=== PATIENT | male | born 1975 ===

== ENCOUNTER 2017-10-05 13:48 | Inpatient (IN) | payer SELFPAY ==
[~2017-10-05] VITALS: Ht 188 cm; Wt 118.4 kg
--- NOTE | 2017-10-05 14:03 | ER Report ---
History and Physical Time Seen By MD: 14:02 Hx. of Stated Complaint: pt reports abd pain and blood in stool for ~2 years. acute pain worse past 2 days in lower/center abd HPI/ROS CHIEF COMPLAINT: Abdominal pain HISTORY OF PRESENT ILLNESS: This is a 41-year-old male who presents to the emergency department for abdominal pain. Patient states that over the last here 2 year have he's had intermittent bright and dark red blood in his stools. Patient states that he has not been formally evaluated for this. Patient also states that over the last 2 days he's had significant lower abdominal pain and has been crawled up in a ball at home dealing with the pain. Patient states that ultimately he decided come in for further evaluation patient has not had a bowel movement in about 1-2 days. Patient denies vomiting he does have nausea. Patient denies chest pain or shortness of breath. Patient has had intermittent chills. No chest pain or shortness of breath. No rashes or headaches. No dysuria. REVIEW OF SYSTEMS: Constitutional: As above. Eyes: No discharge. ENT: No sore throat. Cardiovascular: No chest pain, no palpitations. Respiratory: No cough, no shortness of breath. Gastrointestinal: As above. Genitourinary: No hematuria. Musculoskeletal: No back pain. Skin: No rashes. Neurological: No headache. Allergies: Coded Allergies: No Known Drug Allergies (Unverified , 10/05/17) Home Meds No Active Prescriptions or Reported Meds Past Medical/Surgical History Patient has a past medical and surgical history of appendectomy. Reviewed Nurses Notes: Yes Constitutional Vital Sign - Last 24 Hours 10/05/17 10/05/17 10/05/17 10/05/17 13:56 13:57 14:00 14:03 Temp 98.5 Pulse 103 94 Resp 16 B/P (MAP) 118/83 109/78 (88) 129/91 (104) Pulse Ox 90 91 O2 Delivery Room Air 10/05/17 10/05/17 10/05/17 10/05/17 14:18 14:30 14:33 14:35 Pulse 91 91 B/P (MAP) 117/75 (89) Pulse Ox 90 91 O2 Flow Rate 2.0 10/05/17 10/05/17 10/05/17 10/05/17 14:38 14:53 15:00 15:20 Pulse 97 87 77 B/P (MAP) 116/64 (81) Pulse Ox 91 91 95 10/05/17 10/05/17 10/05/17 10/05/17 15:25 15:30 15:35 15:45 Pulse 81 77 71 B/P (MAP) 120/59 (79) Pulse Ox 93 94 10/05/17 10/05/17 10/05/17 10/05/17 15:55 16:00 16:05 16:20 Pulse 76 79 77 B/P (MAP) 106/76 (86) 101/67 (78) Pulse Ox 84 95 95 10/05/17 10/05/17 10/05/17 16:30 16:35 16:40 Pulse 77 82 B/P (MAP) 105/71 (82) Pulse Ox 96 94 Intake and Output 10/05/17 10/05/17 10/06/17 15:00 23:00 07:00 Intake Total 1000 ml Balance 1000 ml Physical Exam General Appearance: The patient is alert, has no immediate need for airway protection and no signs of toxicity. Eyes: Pupils equal and round no pallor or injection. ENT, Mouth: Mucous membranes are moist. Respiratory: There are no retractions, lungs are clear to auscultation. Cardiovascular: Regular rate and rhythm, no murmurs, clicks or rubs. Gastrointestinal: Abdomen is soft and tenderness to the lower abdomen bilaterally, hypoactive bowel sounds with distant tinkles in the lower abdomen. Umbilical hernia noted. No fluid wave. Negative rectal exam, no gross blood noted no hemorrhoids. Neurological: Alert and oriented 4. Moving all Ixodes. Following all commands. No focal proptosis. Skin: Warm and dry, no rashes. Musculoskeletal: Neck is supple non tender. Extremities are nontender, nonswollen and have full range of motion. DIFFERENTIAL DIAGNOSIS: After history and physical exam differential diagnosis was considered for abdominal pain including but not limited to appendicitis, cholecystitis, gastritis, diverticulitis, reticulosis, bowel obstruction and urinary tract infection. Medical Decision Making Data Points Result Diagram: 10/05/17 1359 10/05/17 1359 Laboratory Hematology Test 10/05/17 13:59 10/05/17 14:50 10/05/17 15:51 Red Blood Count 5.42 M/uL (4.00-5.60) Mean Corpuscular Volume 88.2 fL (80.0-96.0) Mean Corpuscular Hemoglobin 29.9 pg (26.0-33.0) Mean Corpuscular Hemoglobin Concent 33.8 g/dL (32.0-36.0) Red Cell Distribution Width 13.4 % (11.5-14.5) Mean Platelet Volume 10.0 fL (7.2-11.1) Neutrophils (%) (Auto) 88.1 % (39.4-72.5) Lymphocytes (%) (Auto) 6.6 % (17.6-49.6) Monocytes (%) (Auto) 4.6 % (4.1-12.4) Eosinophils (%) (Auto) 0.5 % (0.4-6.7) Basophils (%) (Auto) 0.2 % (0.3-1.4) Nucleated RBC Relative Count (auto) 0.1 /100WBC Neutrophils # (Auto) 14.2 K/uL (2.0-7.4) Lymphocytes # (Auto) 1.1 K/uL (1.3-3.6) Monocytes # (Auto) 0.7 K/uL (0.3-1.0) Eosinophils # (Auto) 0.1 K/uL (0.0-0.5) Basophils # (Auto) 0.0 K/uL (0.0-0.1) Nucleated RBC Absolute Count (auto) 0.01 K/uL Sodium Level 139 mmol/L (137-145) Potassium Level 3.2 mmol/L (3.5-5.0) Chloride Level 100 mmol/L (98-107) Carbon Dioxide Level 23 mmol/L (22-30) Blood Urea Nitrogen 17 mg/dl (9-21) Creatinine 1.20 mg/dl (0.66-1.25) Glomerular Filtration Rate Calc > 60.0 Random Glucose 123 mg/dl (75-110) Calcium Level 9.5 mg/dl (8.4-10.2) Total Bilirubin 1.9 mg/dl (0.2-1.3) Aspartate Amino Transf (AST/SGOT) 35 U/L (0-35) Alanine Aminotransferase (ALT/SGPT) 72 U/L (0-56) Alkaline Phosphatase 110 U/L (0-126) Total Protein 7.6 gm/dl (6.3-8.2) Albumin 4.0 g/dl (3.5-5.0) Amylase Level 44 U/L (0-110) Lipase 33 U/L (23-300) Stool Occult Blood (IFOB) Negative (NEGATIVE) Urine Color Debbie Urine Clarity Clear Urine pH 5.0 pH (4.8-9.5) Urine Specific [place] 1.010 Urine Protein 30 mg/dL (NEGATIVE) Urine Glucose (UA) Negative mg/dL (NEGATIVE) Urine Ketones 20 mg/dL (NEGATIVE) Urine Blood Negative (NEGATIVE) Urine Nitrite Negative (NEGATIVE) Urine Bilirubin Negative (NEGATIVE) Urine Urobilinogen 4.0 mg/dL (0.2-1.9) Urine Leukocyte Esterase Negative (NEGATIVE) Urine RBC None /HPF (0-2/HPF) Urine WBC 4 /HPF (0-5/HPF) Urine Squamous Epithelial Cells None /LPF (</=FEW) Urine Bacteria Few /HPF (NONE-FEW) Urine Hyaline Casts Few /LPF (NONE-FEW) Urine Mucus Few /HPF (NONE-FEW) Chemistry Test 10/05/17 13:59 10/05/17 14:50 10/05/17 15:51 White Blood Count 16.1 k/uL (4.5-11.0) Red Blood Count 5.42 M/uL (4.00-5.60) Hemoglobin 16.2 g/dL (14.0-18.0) Hematocrit 47.9 % (42.0-52.0) Mean Corpuscular Volume 88.2 fL (80.0-96.0) Mean Corpuscular Hemoglobin 29.9 pg (26.0-33.0) Mean Corpuscular Hemoglobin Concent 33.8 g/dL (32.0-36.0) Red Cell Distribution Width 13.4 % (11.5-14.5) Platelet Count 225 K/uL (150-450) Mean Platelet Volume 10.0 fL (7.2-11.1) Neutrophils (%) (Auto) 88.1 % (39.4-72.5) Lymphocytes (%) (Auto) 6.6 % (17.6-49.6) Monocytes (%) (Auto) 4.6 % (4.1-12.4) Eosinophils (%) (Auto) 0.5 % (0.4-6.7) Basophils (%) (Auto) 0.2 % (0.3-1.4) Nucleated RBC Relative Count (auto) 0.1 /100WBC Neutrophils # (Auto) 14.2 K/uL (2.0-7.4) Lymphocytes # (Auto) 1.1 K/uL (1.3-3.6) Monocytes # (Auto) 0.7 K/uL (0.3-1.0) Eosinophils # (Auto) 0.1 K/uL (0.0-0.5) Basophils # (Auto) 0.0 K/uL (0.0-0.1) Nucleated RBC Absolute Count (auto) 0.01 K/uL Glomerular Filtration Rate Calc > 60.0 Calcium Level 9.5 mg/dl (8.4-10.2) Total Bilirubin 1.9 mg/dl (0.2-1.3) Aspartate Amino Transf (AST/SGOT) 35 U/L (0-35) Alanine Aminotransferase (ALT/SGPT) 72 U/L (0-56) Alkaline Phosphatase 110 U/L (0-126) Total Protein 7.6 gm/dl (6.3-8.2) Albumin 4.0 g/dl (3.5-5.0) Amylase Level 44 U/L (0-110) Lipase 33 U/L (23-300) Stool Occult Blood (IFOB) Negative (NEGATIVE) Urine Color Debbie Urine Clarity Clear Urine pH 5.0 pH (4.8-9.5) Urine Specific [place] 1.010 Urine Protein 30 mg/dL (NEGATIVE) Urine Glucose (UA) Negative mg/dL (NEGATIVE) Urine Ketones 20 mg/dL (NEGATIVE) Urine Blood Negative (NEGATIVE) Urine Nitrite Negative (NEGATIVE) Urine Bilirubin Negative (NEGATIVE) Urine Urobilinogen 4.0 mg/dL (0.2-1.9) Urine Leukocyte Esterase Negative (NEGATIVE) Urine RBC None /HPF (0-2/HPF) Urine WBC 4 /HPF (0-5/HPF) Urine Squamous Epithelial Cells None /LPF (</=FEW) Urine Bacteria Few /HPF (NONE-FEW) Urine Hyaline Casts Few /LPF (NONE-FEW) Urine Mucus Few /HPF (NONE-FEW) Urinalysis Test 10/05/17 15:51 Urine Color Debbie Urine Clarity Clear Urine pH 5.0 pH (4.8-9.5) Urine Specific [place] 1.010 Urine Protein 30 mg/dL (NEGATIVE) Urine Glucose (UA) Negative mg/dL (NEGATIVE) Urine Ketones 20 mg/dL (NEGATIVE) Urine Blood Negative (NEGATIVE) Urine Nitrite Negative (NEGATIVE) Urine Bilirubin Negative (NEGATIVE) Urine Urobilinogen 4.0 mg/dL (0.2-1.9) Urine Leukocyte Esterase Negative (NEGATIVE) Urine RBC None /HPF (0-2/HPF) Urine WBC 4 /HPF (0-5/HPF) Urine Squamous Epithelial Cells None /LPF (</=FEW) Urine Bacteria Few /HPF (NONE-FEW) Urine Hyaline Casts Few /LPF (NONE-FEW) Urine Mucus Few /HPF (NONE-FEW) [place]/Imaging [place] [facility] [place] Dillon Kramer : 1975 Visit/Account:[id number] Date of Sevice: 10/05/2017 ABDOMEN/PELVIS WITH CONTRAST HISTORY: Abdomen pain x3 days TECHNIQUE: Following administration of IV contrast contiguous axial images acquired through the abdomen/pelvis. Coronal and sagittal reformatting also performed. Dose Lowering Technique One of the following dose optimization techniques was utilized in the performance of this exam: Automated exposure control; adjustment of the mA and/ or kV according to the patient's size; or use of an iterative reconstruction technique. Specific details can be referenced in the facility's radiology CT exam operational policy. CONTRAST: 75 mL Isovue-370 COMPARISON: None. FINDINGS: Visualized lung bases: There is coarse linear stranding in the lung bases consistent with atelectasis and or scarring Hepatobiliary: Negative. Spleen: Negative. Adrenals: Negative. Pancreas: Negative. Kidneys ureters or bladder: Negative. Genitalia: Negative. GI: There is diverticulosis in the sigmoid colon. In the proximal sigmoid colon there is marked wall thickening with a large amount of adjacent fat stranding and linear channel of free air consistent with a perforation. Immediately adjacent is a thickened dilated loop of small bowel. Mildly dilated fluid-filled loops of small bowel are additionally seen throughout the mid and lower abdomen. There is also a moderate amount of free intraperitoneal air seen throughout the abdomen as well. There are postsurgical changes from an appendectomy. There is a fat halo seen around the terminal ileum which has been described with inflammatory bowel disease. Vessels/spaces/nodes: There shotty retroperitoneal lymph nodes . There is a 2.8 x 2.1 cm ovoid collection with air-fluid level seen just to the right of midline in the mid pelvis worrisome for an abscess Bones/soft tissues: There are multiple Schmorl's nodes in the thoracolumbar spine. There is a moderate size umbilical hernia containing fat and free air Additional findings: None pertinent. IMPRESSION: Findings are consistent with acute diverticulitis in the sigmoid colon without free perforation. Is a moderate amount of free air seen throughout the abdomen initially there is a ovoid collection just the right of midline in the mid pelvis with air-fluid level measuring 2.8 x 2.1 cm in diameter concerning for an abscess.. Adjacent to the sigmoid perforation is a dilated thick-walled loop of small bowel. Multiple loops of mildly dilated fluid-filled small bowel also seen throughout the mid abdomen and pelvis. Coarse linear stranding the lung bases consistent with atelectasis versus scarring There is a fat halo seen around the terminal ileum which has been described with inflammatory bowel disease. Clinical correlation needed. Moderate size umbilical hernia containing fat and free air Results were called to COLT SOARES at 10/05/2017 3:33 PM. Report Dictated By: Kasandra Velasco MD at 10/05/2017 3:26 PM Report E-Signed By: Kasandra Velasco MD at 10/05/2017 3:40 PM WSN:[facility] ED Course/Re-evaluation Clinical Indication for ER IV: Hydration, IV Access ED Course The patient was admitted 1. History of physical obtained. Differential diagnoses were considered. IV was started. A CBC, CMP, amylase and lipase were obtained. The wbc's 16.1 with a left shift. Potassium 3.2. Negative urine. Patient was given 50 g IV fentanyl, 4 mg IV Zofran. A liter of normal saline. Patient was given a subsequent dose of 50 g of IV fentanyl. 2nd liter of normal saline at [address] abdomen and pelvis showing free air in the abdomen with a possible ruptured diverticulum. As well as some thickening in the small intestine. I did review these results with the patient and did tell him that I will contact the surgeon on-call and reviewed the case with him for a possible admission. Patient was in agreement with this plan of care. I did contact Dr. Estrella as noted below. Patient will be admitted to the hospital. Patient was given 1 g of IV ertapenem. Patient was in agreement with the admission patient does understand that he will be going to surgery either today or tomorrow. Patient had no other questions or concerns at this time and was admitted to the medical surgical floor. 10/05/2017 4:37:15 pm I did speak with Dr. Estrella regarding the patient's case , he reviewed the CT and has agreed to admit the patient to his services. Patient will be admitted for perforated diverticulum, free air in the abdomen. We'll go ahead and start the patient on antibiotics in the emergency department. Decision to Disposition Date: Oct 05, 2017 Decision to Disposition Time: 16:15 Depart Departure Latest Vital Signs Vital Signs Date Time Temp Pulse Resp B/P (MAP) Pulse Ox O2 Delivery O2 Flow Rate FiO2 10/05/17 16:40 82 94 10/05/17 16:30 105/71 (82) 10/05/17 14:35 2.0 10/05/17 13:56 98.5 16 Room Air Impression: Primary Impression: Perforated diverticulum Additional Impression: Free intraperitoneal air Condition: Improved Disposition: Admitted from ER New Scripts No Active Prescriptions or Reported Meds Problem Qualifiers COLT SOARES CAFETERIA ASSOCIATE-BC Oct 05, 2017 14:03
[2017-10-05] MEDS ORDERED: NS(*) 0.9% 1000 ML BAG 1,000 ML IV ONE ×2 (14:19→16:25)
[2017-10-05] MEDS ORDERED: fentaNYL CITR 100 MCG/2 ML AMP IVP ONE ×2 (14:20→16:10)
[2017-10-05] MEDS ORDERED: ONDANSETRON 4 MG/2 ML VIAL IVP ONE (14:20)
[2017-10-05 14:30] LABS: PLATELET COUNT, AUTOMATED 225 K/uL (150-450)
[2017-10-05] MEDS ORDERED: IOPAMIDOL 76% 75 ML INFUS BTL 75 ML ONE (14:34)
--- NOTE | 2017-10-05 15:43 | RADIOLOGY IMAGING REPORT ---
FACILITY: [facility] PATIENT NAME: Dillon Kramer : 1975 MR: [id number] V: [id number] EXAM DATE: ORDERING PHYSICIAN: COLT SOARES TECHNOLOGIST: Location: [facility] Patient: Dillon Kramer : 1975 Visit/Account:[id number] Date of Sevice: 10/05/2017 ABDOMEN/PELVIS WITH CONTRAST HISTORY: Abdomen pain x3 days TECHNIQUE: Following administration of IV contrast contiguous axial images acquired through the abdom en/pelvis. Coronal and sagittal reformatting also performed. Dose Lowering Technique One of the following dose optimization techniques was utilized in the performance of this exam: Autom ated exposure control; adjustment of the mA and/or kV according to the patient's size; or use of an i terative reconstruction technique. Specific details can be referenced in the facility's radiology C T exam operational policy. CONTRAST: 75 mL Isovue-370 COMPARISON: None. FINDINGS: Visualized lung bases: There is coarse linear stranding in the lung bases consistent with atelectasi s and or scarring Hepatobiliary: Negative. Spleen: Negative. Adrenals: Negative. Pancreas: Negative. Kidneys ureters or bladder: Negative. Genitalia: Negative. GI: There is diverticulosis in the sigmoid colon. In the proximal sigmoid colon there is marked wal l thickening with a large amount of adjacent fat stranding and linear channel of free air consistent with a perforation. Immediately adjacent is a thickened dilated loop of small bowel. Mildly dilated fluid-filled loops of small bowel are additionally seen throughout the mid and lower abdomen. There is also a moderate amount of free intraperitoneal air seen throughout the abdomen as well. There are postsurgical changes from an appendectomy. There is a fat halo seen around the terminal ileum which has been described with inflammatory bowel d isease. Vessels/spaces/nodes: There shotty retroperitoneal lymph nodes . There is a 2.8 x 2.1 cm ovoid col lection with air-fluid level seen just to the right of midline in the mid pelvis worrisome for an abs cess Bones/soft tissues: There are multiple Schmorl's nodes in the thoracolumbar spine. There is a moderate size umbilical hernia containing fat and free air Additional findings: None pertinent. IMPRESSION: Findings are consistent with acute diverticulitis in the sigmoid colon without free perforation. Is a moderate amount of free air seen throughout the abdomen initially there is a ovoid collection just the right of midline in the mid pelvis with air-fluid level measuring 2.8 x 2.1 cm in diameter concer elvi for an abscess.. Adjacent to the sigmoid perforation is a dilated thick-walled loop of small miki wel. Multiple loops of mildly dilated fluid-filled small bowel also seen throughout the mid abdomen and pelvis. Coarse linear stranding the lung bases consistent with atelectasis versus scarring There is a fat halo seen around the terminal ileum which has been described with inflammatory bowel d isease. Clinical correlation needed. Moderate size umbilical hernia containing fat and free air Results were called to COLT SOARES at 10/05/2017 3:33 PM. Report Dictated By: Kasandra Velasco MD at 10/05/2017 3:26 PM Report E-Signed By: Kasandra Velasco MD at 10/05/2017 3:40 PM ALEXISN:AMICIVN
[2017-10-05] MEDS ORDERED: HYDROmorphone PCA 6 MG/30 ML IV PRN (16:20)
[2017-10-05] MEDS ORDERED: NALOXONE HCL 0.4 MG/ML VIAL IVP PRN (16:20)
[2017-10-05] MEDS ORDERED: ERTAPENEM(*) 1 GM VIAL 1 GM in NS(*) 0.9% 100 ML ADDVANT BAG 100 ML IVPB ONE (16:20)
[2017-10-05] MEDS ORDERED: FLUSH 10 ML SYR IVP PRN (16:20)
[2017-10-05 18:02] VITALS: BP 109/68
[2017-10-05] MEDS ORDERED: metroNIDAZOLE* 500MG/100ML BAG 100 ML IVPB SCH (18:35)
--- NOTE | 2017-10-05 18:50 | Gen Surgery History & Physical ---
History of Present Illness Chief Complaint Abdominal pain History of Present Illness 41-year-old otherwise healthy male presents with a three-day history of abdominal pain. No nausea or vomiting. No fevers but he has had 2 episodes of chills. He's had decreased flatus and bowel movements over the last couple of days. No blood in his stools. He does have a chronic history of seeing blood in his stools but has not seen this lately. Traditionally, the blood has been bright red and some dark red. He has not had any GI workup for this. He had a colonoscopy about 10 years ago when he was being evaluated for abdominal pain but according to him, as far she can remember, it was normal. He has no known family history of colorectal cancer or inflammatory bowel disease. He has had no previous history of his current symptoms. He has not into much pain at the moment. History Home Meds No Active Prescriptions or Reported Meds Allergies: Coded Allergies: No Known Drug Allergies (Unverified , 10/05/17) Review of Systems All Systems Reviewed/Normal: Yes, Except as Noted Gastrointestinal: Constipation, Abdominal Pain Exam General Appearance: Alert, Awake, No Acute Distress, Afebrile Neuro: No Gross deficits Eyes: PERRLA GI: Other (soft, no peritoneal signs, most of his tenderness to palpation his around his umbilical hernia. He does have some left lower quadrant and suprapubic tenderness to palpation but no palpable mass or peritonitis.) Extremities: Warm, Perfused Medical Decision Making Data Points Result Diagram: 10/05/17 1359 10/05/17 1359 Assessment and Plan Problems: (1) Diverticulitis of large intestine with abscess Status: Acute Assessment & Plan: 10/05/17: This patient has CT evidence of sigmoid diverticulitis with a perforation. He has a 2.8 cm, probable, abscess. There is also sparkles of free air around his abdomen. His white blood cell count is 16, 000. He is afebrile and not tachycardic and his vital signs are normal. His abdominal exam is relatively benign, the most tender part of his exam is his umbilical hernia. Given this clinical picture, I have discussed with him conservative management with IV antibiotics versus immediate surgery to include sigmoid colectomy with colostomy. I have recommended starting with conservative management, IV antibiotics and bowel rest, and if he fails to respond to this over the next couple of days, his white blood cell count is increasing, he is having fevers, tachycardia, worsening abdominal exam, then we will need to proceed with exploratory laparotomy. After explaining these options with him including my recommendation, he would like to proceed with conservative management. I have explained to him that if he starts having recurring fevers, tachycardia, worsening abdominal exam, or his white blood cell count is going up or he is not responding to therapy, i.e. he is not improving after a couple of days of conservative therapy, then he will require exploratory laparotomy with sigmoid colectomy and colostomy. He seems to understand this plan and his questions have been answered. He would like to proceed with this plan as I have described it above. (2) Perforated diverticulum Status: Acute (3) Free intraperitoneal air Status: Acute Condition Stable Time Spent: < 30 min Venous Thromboembolism VTE Risk Physician Assess for VTE Risk: Yes Patient's VTE Risk: Low VTE Diagnostic Test 2 Days Prior to Admit: No Antithrombotics Is Pt On Any Antithrombotics?: No Prophylaxis Tx Contraindicated Pharmacological Contraindicati: Surgical Contraindication Problem Qualifiers (1) Diverticulitis of large intestine with abscess: Diverticulitis bleeding: without bleeding Qualified Codes: K57.20 - Diverticulitis of large intestine with perforation and abscess without bleeding ROE CERVANTES MD Oct 05, 2017 18:50
[2017-10-05] MEDS ORDERED: CEFEPIME HCL 2 GM VIAL 2 GM in NS(*) 0.9% 100 ML BAG 100 ML IVPB SCH (21:00)
[2017-10-05] MEDS ORDERED: CEFEPIME HCL 2 GM VIAL IVP SCH (21:00)
[2017-10-05] MEDS: CEFEPIME HCL 2 GM VIAL 2 GM in NS(*) 0.9% 100 ML BAG 100 ML IVPB SCH (21:27)
[2017-10-05] MEDS ORDERED: MORPHINE 1 MG/ML 30 ML PCA IV PRN (21:50)
[2017-10-05] MEDS: diphenhydrAMINE 50 MG/ML VIAL IVP PRN (22:53)
[2017-10-06] VITALS (7 sets, daily range): BP systolic 109–152; BP diastolic 66–85
[2017-10-06] MEDS: metroNIDAZOLE* 500MG/100ML BAG 100 ML IVPB SCH ×4 (02:00→20:43)
[2017-10-06] MEDS: NS(*) 0.9% 1000 ML BAG 1,000 ML IV PRN ×2 (02:00→14:14)
[2017-10-06] MEDS: diphenhydrAMINE 50 MG/ML VIAL IVP PRN ×2 (05:29→11:22)
[2017-10-06] MEDS: CEFEPIME HCL 2 GM VIAL 2 GM in NS(*) 0.9% 100 ML BAG 100 ML IVPB SCH ×3 (05:30→21:33)
[2017-10-06 05:55] LABS: PLATELET COUNT, AUTOMATED 153 K/uL (150-450)
--- NOTE | 2017-10-06 07:23 | General Surgery Progress Note ---
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 Still with abdominal pain, no real change since admission last evening. No flatus or BM. No N/V. Physical Exam Vital Signs Date Time Temp Pulse Resp B/P (MAP) Pulse Ox O2 Delivery O2 Flow Rate FiO2 10/06/17 06:21 16 94 10/06/17 03:37 97.7 67 114/82 (93) Nasal Cannula 2.0 General Appearance: Alert, Awake, No Acute Distress, Afebrile GI: Other (Soft, diffuse mild TTP, greatest at [facility]. No peritoneal signs.) Extremities: Warm, Perfused Result Diagram: 10/06/17 0537 10/06/17 0537 Assessment and Plan Problems: (1) Diverticulitis of large intestine with abscess Status: Acute Assessment & Plan: 10/05/17: This patient has CT evidence of sigmoid diverticulitis with a perforation. He has a 2.8 cm, probable, abscess. There is also sparkles of free air around his abdomen. His white blood cell count is 16, 000. He is afebrile and not tachycardic and his vital signs are normal. His abdominal exam is relatively benign, the most tender part of his exam is his umbilical hernia. Given this clinical picture, I have discussed with him conservative management with IV antibiotics versus immediate surgery to include sigmoid colectomy with colostomy. I have recommended starting with conservative management, IV antibiotics and bowel rest, and if he fails to respond to this over the next couple of days, his white blood cell count is increasing, he is having fevers, tachycardia, worsening abdominal exam, then we will need to proceed with exploratory laparotomy. After explaining these options with him including my recommendation, he would like to proceed with conservative management. I have explained to him that if he starts having recurring fevers, tachycardia, worsening abdominal exam, or his white blood cell count is going up or he is not responding to therapy, i.e. he is not improving after a couple of days of conservative therapy, then he will require exploratory laparotomy with sigmoid colectomy and colostomy. He seems to understand this plan and his questions have been answered. He would like to proceed with this plan as I have described it above. 10/06/17: No fevers, WBC down to normal this morning, exam unchanged but only with 12 hours of antibiotics. Will continue conservative management with IV abx. Continue bowel rest and IV fluids. Surgery if fails to respond to conservative treatment or clinically worsens. (2) Perforated diverticulum Status: Acute (3) Free intraperitoneal air Status: Acute Condition Stable. Time Spent: < 30 min Exam Sepsis Risk: No Definite Risk Problem Qualifiers (1) Diverticulitis of large intestine with abscess: Diverticulitis bleeding: without bleeding Qualified Codes: K57.20 - Diverticulitis of large intestine with perforation and abscess without bleeding ROE CERVANTES MD Oct 06, 2017 07:23
[2017-10-06] MEDS ORDERED: ERTAPENEM(*) 1 GM VIAL 1 GM in NS(*) 0.9% 100 ML ADDVANT BAG 100 ML IVPB SCH (09:00)
[2017-10-06] MEDS: PANTOPRAZOLE SOD 40 MG IV VIAL IVP SCH (09:07)
[2017-10-06] MEDS: HYDROmorphone PCA 6 MG/30 ML IV PRN (10:33)
--- NOTE | 2017-10-06 13:13 | Medical Nutrition Therapy ---
Nutrition Anthropometrics Height (Inches): 74.00 Height (Calculated Centimeters: 187.503357 Weight (Pounds): 261 Weight (Calculated Kilograms): 118.614 Saulo Nutrition Score: Adequate Saulo Nutrition Risk Score: 22 Dietary Referral Nutrition Risk Factors: Nutrition Risk Comment: Physical Findings Physical Appearance: Obese BMI 30-39 Skin Appearance Skin Appearance: Edema Edema Location Modifier: Edema Location: Type of Edema: Degree of Edema: Gastrointestinal Symptoms GI Symtoms: Tube Present: Bowel Sounds: Recent Bowel Pattern: Stool Characteristics: Nutrition/Food History Fair Breakfast: Mainly meat and vegetables with some bread Lunch: Meat and vegetables, some nuts and seeds Dinner: Meat andvegetables Snacks: 2 gallons of water per day Nutritional Diagnosis Nutritional Risk Acuity 3: Fair Appetite Past Medical History: no significant past medical history Nutritional Acuity: 3-Mild Nutrition Diagnosis: Altered GI Function Nutrition Etiology: Discomfort post Eating Nutrition Problem/Etiology/Sym: diverticulitis of the large intestine with abdominal pain. Energy Requirement: 2727 (kcal/day (23 kcal/kg)) Protein Requirement: 95 (g/day (0.8 g/kg)) Fluid Requirement: 3000 (mL/day (25 mL/kg)) Diet Type: NPO (Nothing by Mouth) Nutrition Intervention: Incr diet as tolerated Nutrition Monitoring & Eval Nutrition Goals: advance diet as tolerated Nutrition Follow-Up: Fair Intake RD Patient Assessment Time: [address] Assessment Type: RD Assessment Patient Nutrition Acuity: 3-Mild Follow Up Date: Oct 09, 2017 Nutritional Comment: 10/06 Pt admitted for diverticulitis of large intestine with abscess. Pt currently reports abdominal pain. Pt diet order NPO with no intakes recorded. During interview with pt, pt reports that he has been experiencing abdominal pain for the last year and has been doing alot of research on nutrition. Pt reports that he has increased thirst drinking 2 gallons of water per day with frequent dry mouth and sometimes blurred vision. Pt random blood glucose 122. Pt reports that he typically consumes vegetables and meat with each meal but sometimes eats bread as a grain. Pt reports that he eats nuts and seeds. Pt reports no difficulty chewing or swallowing and no known food allergies. Pt ammenable to recieving diet education as pt path progresses. Monitor pt progress, plan and diet advancement. Provide diet ed when appropriate. AYANA WEST Oct 06, 2017 11:00
[2017-10-07] MEDS: HYDROmorphone PCA 6 MG/30 ML IV PRN ×2 (01:18→19:33)
[2017-10-07] MEDS: NS(*) 0.9% 1000 ML BAG 1,000 ML IV PRN (01:18)
[2017-10-07] MEDS: diphenhydrAMINE 50 MG/ML VIAL IVP PRN ×3 (01:18→22:40)
[2017-10-07 02:27] VITALS: BP 116/82
[2017-10-07] MEDS: metroNIDAZOLE* 500MG/100ML BAG 100 ML IVPB SCH ×4 (02:27→22:39)
[2017-10-07] MEDS: CEFEPIME HCL 2 GM VIAL 2 GM in NS(*) 0.9% 100 ML BAG 100 ML IVPB SCH ×3 (05:29→21:04)
--- NOTE | 2017-10-07 05:35 | General Surgery Progress Note ---
Subjective Progress Notes Subjective Doing well. Less pain this morning. Hasn't used [employer] overnight. No flatus or BM yet. Physical Exam Vital Signs Date Time Temp Pulse Resp B/P (MAP) Pulse Ox O2 Delivery O2 Flow Rate FiO2 10/07/17 03:38 93 10/07/17 02:27 98.7 64 16 116/82 (93) Nasal Cannula 2.0 General Appearance: Alert, Awake, No Acute Distress, Afebrile GI: Other (Soft, improving abdominal TTP, no peritonitis.) Extremities: Warm, Perfused Result Diagram: 10/06/17 0537 10/06/17 0537 Assessment and Plan Problems: (1) Diverticulitis of large intestine with abscess Status: Acute Assessment & Plan: 10/05/17: This patient has CT evidence of sigmoid diverticulitis with a perforation. He has a 2.8 cm, probable, abscess. There is also sparkles of free air around his abdomen. His white blood cell count is 16, 000. He is afebrile and not tachycardic and his vital signs are normal. His abdominal exam is relatively benign, the most tender part of his exam is his umbilical hernia. Given this clinical picture, I have discussed with him conservative management with IV antibiotics versus immediate surgery to include sigmoid colectomy with colostomy. I have recommended starting with conservative management, IV antibiotics and bowel rest, and if he fails to respond to this over the next couple of days, his white blood cell count is increasing, he is having fevers, tachycardia, worsening abdominal exam, then we will need to proceed with exploratory laparotomy. After explaining these options with him including my recommendation, he would like to proceed with conservative management. I have explained to him that if he starts having recurring fevers, tachycardia, worsening abdominal exam, or his white blood cell count is going up or he is not responding to therapy, i.e. he is not improving after a couple of days of conservative therapy, then he will require exploratory laparotomy with sigmoid colectomy and colostomy. He seems to understand this plan and his questions have been answered. He would like to proceed with this plan as I have described it above. 10/06/17: No fevers, WBC down to normal this morning, exam unchanged but only with 12 hours of antibiotics. Will continue conservative management with IV abx. Continue bowel rest and IV fluids. Surgery if fails to respond to conservative treatment or clinically worsens. 4/25/18: Doing well. Afebrile. Exam improving. Vitals all look good, no tachycardia. Still no flatus. AM labs pending at time of this note so WBC normal yesterday, awaiting this morning's results. If no flatus by tomorrow morning, will repeat abdominal/pelvis CT tomorrow. So far, clinically improving other than bowel function. Continue IV abx, bowel rest, IV fluids, etc. (2) Perforated diverticulum Status: Acute (3) Free intraperitoneal air Status: Acute Condition Stable. Time Spent: < 30 min Exam Sepsis Risk: No Definite Risk Problem Qualifiers (1) Diverticulitis of large intestine with abscess: Diverticulitis bleeding: without bleeding Qualified Codes: K57.20 - Diverticulitis of large intestine with perforation and abscess without bleeding ROE CERVANTES MD Oct 07, 2017 05:35
[2017-10-07 05:50] LABS: PLATELET COUNT, AUTOMATED 189 K/uL (150-450)
[2017-10-07 07:30] VITALS: BP 110/76
[2017-10-07] MEDS: ENOXAPARIN 40 MG/0.4ML SYR SC SCH (08:29)
[2017-10-07] MEDS: PANTOPRAZOLE SOD 40 MG IV VIAL IVP SCH (08:29)
[2017-10-07] MEDS: KCL/D1/2NS 20 MEQ 1000 ML 1,000 ML IV SCH (08:29)
[2017-10-07 12:25] VITALS: BP 137/93
[2017-10-07 15:49] VITALS: BP 147/90
--- NOTE | 2017-10-07 16:01 | Antimicrobial Stewardship ---
Antimicrobial Stewardship MD Service: Other (General Surgery) Indications: Other (Diverticulitis with Abscess) Antimicrobial Allergies NKDA Antimicrobial Used Ertapenem IV x one dose. Cefepime IV and Metronidazole IV. Start Date: Oct 05, 2017 Height (Calculated Centimeters: 187.562545 Weight (Calculated Kilograms): 118.614 Culture Results: N/A Patient Improving Clinically: Yes Tolerating Oral Fluids: No (NPO) Able to Absorb PO Meds: No Taking Other Meds PO: No Received >24 hr of IV Abx: Yes Improving WBC and Differential: Yes Improving Signs and Symptoms: Yes Hemodynamically Stable: Yes Eligable for PO Conversion: No ABIMAEL HALL Oct 07, 2017 16:01
[2017-10-07 19:29] VITALS: BP 144/72
[2017-10-07 22:35] VITALS: BP 149/92
[2017-10-08] MEDS: KCL/D1/2NS 20 MEQ 1000 ML 1,000 ML IV SCH ×3 (00:50→23:05)
[2017-10-08 02:26] VITALS: BP 146/89
[2017-10-08] MEDS: metroNIDAZOLE* 500MG/100ML BAG 100 ML IVPB SCH ×4 (04:02→21:46)
[2017-10-08] MEDS: CEFEPIME HCL 2 GM VIAL 2 GM in NS(*) 0.9% 100 ML BAG 100 ML IVPB SCH ×3 (05:17→21:01)
[2017-10-08 06:01] LABS: PLATELET COUNT, AUTOMATED 206 K/uL (150-450)
--- NOTE | 2017-10-08 06:56 | General Surgery Progress Note ---
Subjective Progress Notes Subjective Feeling better. Passing flatus, had small BM yesterday. Pain decreasing. No N /V. Appetite returning. Physical Exam Vital Signs Date Time Temp Pulse Resp B/P (MAP) Pulse Ox O2 Delivery O2 Flow Rate FiO2 10/08/17 06:00 93 10/08/17 02:26 97.7 64 16 146/89 (108) Nasal Cannula 1.0 General Appearance: Alert, Awake, No Acute Distress, Afebrile GI: Other (Soft, mild diffuse TTP, greatest at umbilical hernia which is easily reducible. No peritonitis.) Extremities: Warm, Perfused Result Diagram: 10/08/17 0535 10/08/17 0535 Assessment and Plan Problems: (1) Diverticulitis of large intestine with abscess Status: Acute Assessment & Plan: 10/05/17: This patient has CT evidence of sigmoid diverticulitis with a perforation. He has a 2.8 cm, probable, abscess. There is also sparkles of free air around his abdomen. His white blood cell count is 16, 000. He is afebrile and not tachycardic and his vital signs are normal. His abdominal exam is relatively benign, the most tender part of his exam is his umbilical hernia. Given this clinical picture, I have discussed with him conservative management with IV antibiotics versus immediate surgery to include sigmoid colectomy with colostomy. I have recommended starting with conservative management, IV antibiotics and bowel rest, and if he fails to respond to this over the next couple of days, his white blood cell count is increasing, he is having fevers, tachycardia, worsening abdominal exam, then we will need to proceed with exploratory laparotomy. After explaining these options with him including my recommendation, he would like to proceed with conservative management. I have explained to him that if he starts having recurring fevers, tachycardia, worsening abdominal exam, or his white blood cell count is going up or he is not responding to therapy, i.e. he is not improving after a couple of days of conservative therapy, then he will require exploratory laparotomy with sigmoid colectomy and colostomy. He seems to understand this plan and his questions have been answered. He would like to proceed with this plan as I have described it above. 10/06/17: No fevers, WBC down to normal this morning, exam unchanged but only with 12 hours of antibiotics. Will continue conservative management with IV abx. Continue bowel rest and IV fluids. Surgery if fails to respond to conservative treatment or clinically worsens. 10/07/17: Doing well. Afebrile. Exam improving. Vitals all look good, no tachycardia. Still no flatus. AM labs pending at time of this note so WBC normal yesterday, awaiting this morning's results. If no flatus by tomorrow morning, will repeat abdominal/pelvis CT tomorrow. So far, clinically improving other than bowel function. Continue IV abx, bowel rest, IV fluids, etc. 10/08/17: Continued improvement. No fevers for entire admission thus far, WBC remains normal, no tachycardia, vitals all look good. Bowel function is returning. Will start clear diet today. O/W, continue current management with IV abx, IV fluids, and follow his exam and subjective report as well as vitals and labs for signs of continued improvement. If improvement stalls or his WBC increases or he develops fevers then CT will need to be repeated to look for drainable abscess or need for ex-lap. Again reiterated that although he's improving, there's still a chance he'll need surgery during this admission. He seems to understand this and is agreeable with this plan. (2) Perforated diverticulum Status: Acute (3) Free intraperitoneal air Status: Acute Condition Stable. Time Spent: < 30 min Exam Sepsis Risk: No Definite Risk Problem Qualifiers (1) Diverticulitis of large intestine with abscess: Diverticulitis bleeding: without bleeding Qualified Codes: K57.20 - Diverticulitis of large intestine with perforation and abscess without bleeding ROE CERVANTES MD Oct 08, 2017 06:56
[2017-10-08 08:26] VITALS: BP 134/88
[2017-10-08] MEDS: PANTOPRAZOLE SOD 40 MG IV VIAL IVP SCH (08:29)
[2017-10-08] MEDS: ENOXAPARIN 40 MG/0.4ML SYR SC SCH (08:30)
[2017-10-08 11:00] VITALS: BP 137/80
[2017-10-08] MEDS: ONDANSETRON 4 MG/2 ML VIAL IVP PRN ×2 (16:20→21:14)
[2017-10-08] MEDS: HYDROmorphone PCA 6 MG/30 ML IV PRN (16:29)
[2017-10-08 16:39] VITALS: BP 153/63
[2017-10-08 21:08] VITALS: BP 160/104
[2017-10-08] MEDS: PROMETHAZINE 25 MG/ML 1 ML AMP IVP PRN (23:10)
[2017-10-08 23:18] VITALS: BP 153/102
[2017-10-09 03:05] VITALS: BP 145/103
[2017-10-09] MEDS: diphenhydrAMINE 50 MG/ML VIAL IVP PRN ×2 (03:15→09:17)
[2017-10-09] MEDS: metroNIDAZOLE* 500MG/100ML BAG 100 ML IVPB SCH ×4 (03:16→21:48)
[2017-10-09] MEDS: KCL/D1/2NS 20 MEQ 1000 ML 1,000 ML IV SCH ×2 (03:28→16:31)
[2017-10-09] MEDS: CEFEPIME HCL 2 GM VIAL 2 GM in NS(*) 0.9% 100 ML BAG 100 ML IVPB SCH ×3 (04:33→20:43)
[2017-10-09] MEDS: HYDROmorphone PCA 6 MG/30 ML IV PRN ×2 (04:48→21:37)
[2017-10-09 06:05] LABS: PLATELET COUNT, AUTOMATED 230 K/uL (150-450)
--- NOTE | 2017-10-09 06:24 | General Surgery Progress Note ---
Subjective Progress Notes Subjective Continued improvement, passing flatus, BM yesterday again, decreasing pain. Physical Exam Vital Signs Date Time Temp Pulse Resp B/P (MAP) Pulse Ox O2 Delivery O2 Flow Rate FiO2 10/09/17 06:01 15 94 10/09/17 03:05 98.2 56 145/103 (117) Nasal Cannula 0.5 General Appearance: Alert, Awake, No Acute Distress, Afebrile GI: Other (Soft, mild improving TTP, no peritonitis, UH is soft and reducible) Extremities: Warm, Perfused Result Diagram: 10/09/1752110/09/17521 Assessment and Plan Problems: (1) Diverticulitis of large intestine with abscess Status: Acute Assessment & Plan: 10/05/17: This patient has CT evidence of sigmoid diverticulitis with a perforation. He has a 2.8 cm, probable, abscess. There is also sparkles of free air around his abdomen. His white blood cell count is 16, 000. He is afebrile and not tachycardic and his vital signs are normal. His abdominal exam is relatively benign, the most tender part of his exam is his umbilical hernia. Given this clinical picture, I have discussed with him conservative management with IV antibiotics versus immediate surgery to include sigmoid colectomy with colostomy. I have recommended starting with conservative management, IV antibiotics and bowel rest, and if he fails to respond to this over the next couple of days, his white blood cell count is increasing, he is having fevers, tachycardia, worsening abdominal exam, then we will need to proceed with exploratory laparotomy. After explaining these options with him including my recommendation, he would like to proceed with conservative management. I have explained to him that if he starts having recurring fevers, tachycardia, worsening abdominal exam, or his white blood cell count is going up or he is not responding to therapy, i.e. he is not improving after a couple of days of conservative therapy, then he will require exploratory laparotomy with sigmoid colectomy and colostomy. He seems to understand this plan and his questions have been answered. He would like to proceed with this plan as I have described it above. 10/06/17: No fevers, WBC down to normal this morning, exam unchanged but only with 12 hours of antibiotics. Will continue conservative management with IV abx. Continue bowel rest and IV fluids. Surgery if fails to respond to conservative treatment or clinically worsens. 10/07/17: Doing well. Afebrile. Exam improving. Vitals all look good, no tachycardia. Still no flatus. AM labs pending at time of this note so WBC normal yesterday, awaiting this morning's results. If no flatus by tomorrow morning, will repeat abdominal/pelvis CT tomorrow. So far, clinically improving other than bowel function. Continue IV abx, bowel rest, IV fluids, etc. 10/08/17: Continued improvement. No fevers for entire admission thus far, WBC remains normal, no tachycardia, vitals all look good. Bowel function is returning. Will start clear diet today. O/W, continue current management with IV abx, IV fluids, and follow his exam and subjective report as well as vitals and labs for signs of continued improvement. If improvement stalls or his WBC increases or he develops fevers then CT will need to be repeated to look for drainable abscess or need for ex-lap. Again reiterated that although he's improving, there's still a chance he'll need surgery during this admission. He seems to understand this and is agreeable with this plan. 10/09/17: Doing well. Afebrile, VSS, no tachycardia. WBC remains normal. Will try regular diet. If he tolerates this then PO abx/meds this afternoon with hope for d/c tomorrow. (2) Perforated diverticulum Status: Acute (3) Free intraperitoneal air Status: Acute Condition Stable. Time Spent: < 30 min Exam Sepsis Risk: No Definite Risk Problem Qualifiers (1) Diverticulitis of large intestine with abscess: Diverticulitis bleeding: without bleeding Qualified Codes: K57.20 - Diverticulitis of large intestine with perforation and abscess without bleeding ROE CERVANTES MD Oct 09, 2017 06:24
[2017-10-09 07:25] VITALS: BP 136/90
[2017-10-09] MEDS: DOCUSATE SODIUM 100 MG CAP PO SCH ×2 (09:06→20:43)
[2017-10-09] MEDS: ENOXAPARIN 40 MG/0.4ML SYR SC SCH (09:06)
[2017-10-09] MEDS: PANTOPRAZOLE SOD 40 MG IV VIAL IVP SCH (09:06)
--- NOTE | 2017-10-09 11:19 | Medical Nutrition Therapy ---
Nutrition Anthropometrics Height (Inches): 74.00 Height (Calculated Centimeters: 187.250464 Weight (Pounds): 261 Weight (Calculated Kilograms): 118.614 Saulo Nutrition Score: Adequate Saulo Nutrition Risk Score: 22 Dietary Referral Nutrition Risk Factors: Nutrition Risk Comment: Nutritional Diagnosis Nutritional Risk Acuity 3: Fair Appetite Past Medical History: no significant past medical history Nutritional Acuity: 3-Mild Nutrition Diagnosis: Altered GI Function Nutrition Etiology: Discomfort post Eating Nutrition Problem/Etiology/Sym: diverticulitis of the large intestine with abdominal pain. Energy Requirement: 2727 (kcal/day (23 kcal/kg)) Protein Requirement: 95 (g/day (0.8 g/kg)) Fluid Requirement: 3000 (mL/day (25 mL/kg)) Diet Type: NPO (Nothing by Mouth) Nutrition Intervention: Incr diet as tolerated Nutritional Education Nutrition Education Topic: Other (Fiber Restricted Nutrition Therapy) Learning Barriers: Emotional Learning Readiness: Little Interest Teaching Methods: Discussion, Handout Response to Teaching: Verbalize understanding Teaching Recipient: Patient Nutrition Counseling: Pt provided pt with Fiber Restricted Diet Therapy handout from the [employer]. Sc[employer] Diving Teacher reviewed foods recommended and foods not recommended. Sc[employer] Diving Teacher encouraged pt to choose lower fiber and lower fat options when starting PO intake as diet advances. Pt reported understanding and expressed that he has previously done extensive research into nutrition and knows what he should do. Nutrition Monitoring & Eval Nutrition Goals: Eat 50-100% Meal RD Patient Assessment Time: [address] Assessment Type: RD Re-Assessment Patient Nutrition Acuity: 3-Mild Follow Up Date: October 14, 2017 Nutritional Comment: 10/06 Pt admitted for diverticulitis of large intestine with abscess. Pt currently reports abdominal pain. Pt diet order NPO with no intakes recorded. During interview with pt, pt reports that he has been experiencing abdominal pain for the last year and has been doing alot of research on nutrition. Pt reports that he has increased thirst drinking 2 gallons of water per day with frequent dry mouth and sometimes blurred vision. Pt random blood glucose 122. Pt reports that he typically consumes vegetables and meat with each meal but sometimes eats bread as a grain. Pt reports that he eats nuts and seeds. Pt reports no difficulty chewing or swallowing and no known food allergies. Pt ammenable to recieving diet education as pt path progresses. Monitor pt progress, plan and diet advancement. Provide diet ed when appropriate. 10/09 Pt has been on bowel rest since admit. Pt started PO intake with clear liquids yesterday (10/08). Pt reported that he consumed very little yesterday. Pt diet advanced to regular diet order today (10/09). Scuba Diving Teacher provided pt with brief Fiber Restricted Diet education. Pt reported understanding. Scuba Diving Teacher remains available PRN. Monitor intake and tolerance to PO intake. AYANA WEST Oct 09, 2017 09:03
[2017-10-09 12:52] VITALS: BP 124/71
[2017-10-09] MEDS: PROMETHAZINE 25 MG/ML 1 ML AMP IVP PRN (13:34)
[2017-10-09 15:40] VITALS: BP 131/91
[2017-10-09 20:41] VITALS: BP 135/99
[2017-10-09] MEDS: ONDANSETRON 4 MG/2 ML VIAL IVP PRN (20:55)
[2017-10-10] MEDS: PROMETHAZINE 25 MG/ML 1 ML AMP IVP PRN (00:50)
[2017-10-10 00:52] VITALS: BP 138/84
[2017-10-10] MEDS: ZOLPIDEM TARTRATE 10 MG TAB PO PRN (01:58)
[2017-10-10] MEDS: metroNIDAZOLE* 500MG/100ML BAG 100 ML IVPB SCH (04:18)
[2017-10-10] MEDS: CEFEPIME HCL 2 GM VIAL 2 GM in NS(*) 0.9% 100 ML BAG 100 ML IVPB SCH (04:58)
[2017-10-10 04:59] VITALS: BP 124/77
[2017-10-10] MEDS: KCL/D1/2NS 20 MEQ 1000 ML 1,000 ML IV SCH (06:21)
[2017-10-10 06:59] LABS: PLATELET COUNT, AUTOMATED 225 K/uL (150-450)
--- NOTE | 2017-10-10 07:58 | General Surgery Progress Note ---
Subjective Progress Notes Subjective No new events overnight. Denies abdominal pain, does feel "a little bloated." Physical Exam Vital Signs Date Time Temp Pulse Resp B/P (MAP) Pulse Ox O2 Delivery O2 Flow Rate FiO2 10/10/17 07:15 93 10/10/17 06:19 16 10/10/17 04:59 98.3 51 124/77 (93) Oxy Mask 0.5 General Appearance: Alert, Awake Eyes: PERRLA ENT: Normal Cardiovascular: Normal Rhythm & Peripheral Pulses Respiratory: No Respiratory Distress GI: Other (Mildly distended, soft. Reducible umbilical hernia.) Musculoskeletal: No Weakness/Pain Extremities: Soft and Non Tender Integumentary: Skin Intact without Lesion / Mass Psych: Alert & Oriented X3, Appropriate Mood & Affect Result Diagram: 10/10/17 0514 10/10/17 0514 Assessment and Plan Problems: (1) Diverticulitis of large intestine with abscess Status: Acute Assessment & Plan: 10/05/17: This patient has CT evidence of sigmoid diverticulitis with a perforation. He has a 2.8 cm, probable, abscess. There is also sparkles of free air around his abdomen. His white blood cell count is 16, 000. He is afebrile and not tachycardic and his vital signs are normal. His abdominal exam is relatively benign, the most tender part of his exam is his umbilical hernia. Given this clinical picture, I have discussed with him conservative management with IV antibiotics versus immediate surgery to include sigmoid colectomy with colostomy. I have recommended starting with conservative management, IV antibiotics and bowel rest, and if he fails to respond to this over the next couple of days, his white blood cell count is increasing, he is having fevers, tachycardia, worsening abdominal exam, then we will need to proceed with exploratory laparotomy. After explaining these options with him including my recommendation, he would like to proceed with conservative management. I have explained to him that if he starts having recurring fevers, tachycardia, worsening abdominal exam, or his white blood cell count is going up or he is not responding to therapy, i.e. he is not improving after a couple of days of conservative therapy, then he will require exploratory laparotomy with sigmoid colectomy and colostomy. He seems to understand this plan and his questions have been answered. He would like to proceed with this plan as I have described it above. 10/06/17: No fevers, WBC down to normal this morning, exam unchanged but only with 12 hours of antibiotics. Will continue conservative management with IV abx. Continue bowel rest and IV fluids. Surgery if fails to respond to conservative treatment or clinically worsens. 10/07/17: Doing well. Afebrile. Exam improving. Vitals all look good, no tachycardia. Still no flatus. AM labs pending at time of this note so WBC normal yesterday, awaiting this morning's results. If no flatus by tomorrow morning, will repeat abdominal/pelvis CT tomorrow. So far, clinically improving other than bowel function. Continue IV abx, bowel rest, IV fluids, etc. 10/08/17: Continued improvement. No fevers for entire admission thus far, WBC remains normal, no tachycardia, vitals all look good. Bowel function is returning. Will start clear diet today. O/W, continue current management with IV abx, IV fluids, and follow his exam and subjective report as well as vitals and labs for signs of continued improvement. If improvement stalls or his WBC increases or he develops fevers then CT will need to be repeated to look for drainable abscess or need for ex-lap. Again reiterated that although he's improving, there's still a chance he'll need surgery during this admission. He seems to understand this and is agreeable with this plan. 10/09/17: Doing well. Afebrile, VSS, no tachycardia. WBC remains normal. Will try regular diet. If he tolerates this then PO abx/meds this afternoon with hope for d/c tomorrow. 10/10/17: Did well, ate regular diet. Transition to PO abx. Will monitor response on PO. Also transition off IV pain meds. D/c this afternoon vs. AM. (2) Perforated diverticulum Status: Acute (3) Free intraperitoneal air Status: Acute Exam Sepsis Risk: No Definite Risk Problem Qualifiers (1) Diverticulitis of large intestine with abscess: Diverticulitis bleeding: without bleeding Qualified Codes: K57.20 - Diverticulitis of large intestine with perforation and abscess without bleeding ZAYDA ABEL MD Oct 10, 2017 07:58
[2017-10-10 08:04] VITALS: BP 139/93
[2017-10-10] MEDS: METRONIDAZOLE 500 MG TABLET PO SCH ×4 (09:29→20:21)
[2017-10-10] MEDS: DOCUSATE SODIUM 100 MG CAP PO SCH ×2 (09:29→20:22)
[2017-10-10] MEDS: PANTOPRAZOLE SOD 40 MG IV VIAL IVP SCH (09:30)
[2017-10-10] MEDS: APAP/HYDROCODONE 325/5 TAB PO PRN ×3 (09:30→20:21)
[2017-10-10] MEDS: ENOXAPARIN 40 MG/0.4ML SYR SC SCH (09:30)
[2017-10-10] MEDS: AMOX/CLAV 875 MG TAB PO SCH ×2 (09:30→16:23)
[2017-10-10 12:12] VITALS: BP 122/70
[2017-10-10] MEDS: ONDANSETRON 4 MG/2 ML VIAL IVP PRN ×2 (13:31→20:22)
[2017-10-10 16:18] VITALS: BP 153/98
[2017-10-10 19:29] VITALS: BP 151/98
[2017-10-11 00:12] VITALS: BP 148/97
[2017-10-11] MEDS: ZOLPIDEM TARTRATE 10 MG TAB PO PRN (00:22)
[2017-10-11] MEDS: APAP/HYDROCODONE 325/5 TAB PO PRN ×3 (00:22→13:10)
[2017-10-11 05:33] VITALS: BP 130/75
--- NOTE | 2017-10-11 08:23 | General Surgery Progress Note ---
Subjective Progress Notes Subjective Slept better. Multiple loose BM yesterday. C/o nausea with new PO abx, but better this AM. Physical Exam Vital Signs Date Time Temp Pulse Resp B/P (MAP) Pulse Ox O2 Delivery O2 Flow Rate FiO2 10/11/17 05:33 98.6 58 16 130/75 (93) 95 Oxy Mask 3.0 General Appearance: Alert, Awake ENT: Normal Cardiovascular: Normal Rhythm & Peripheral Pulses Respiratory: No Respiratory Distress GI: Soft and Non-Tender (Reducible umbilical hernia. Mild pain in lower quadrants with deep palpation. ) Extremities: Soft and Non Tender Integumentary: Skin Intact without Lesion / Mass Psych: Alert & Oriented X3 Result Diagram: 10/11/1751710/11/17517 Assessment and Plan Problems: (1) Diverticulitis of large intestine with abscess Status: Acute Assessment & Plan: 10/05/17: This patient has CT evidence of sigmoid diverticulitis with a perforation. He has a 2.8 cm, probable, abscess. There is also sparkles of free air around his abdomen. His white blood cell count is 16, 000. He is afebrile and not tachycardic and his vital signs are normal. His abdominal exam is relatively benign, the most tender part of his exam is his umbilical hernia. Given this clinical picture, I have discussed with him conservative management with IV antibiotics versus immediate surgery to include sigmoid colectomy with colostomy. I have recommended starting with conservative management, IV antibiotics and bowel rest, and if he fails to respond to this over the next couple of days, his white blood cell count is increasing, he is having fevers, tachycardia, worsening abdominal exam, then we will need to proceed with exploratory laparotomy. After explaining these options with him including my recommendation, he would like to proceed with conservative management. I have explained to him that if he starts having recurring fevers, tachycardia, worsening abdominal exam, or his white blood cell count is going up or he is not responding to therapy, i.e. he is not improving after a couple of days of conservative therapy, then he will require exploratory laparotomy with sigmoid colectomy and colostomy. He seems to understand this plan and his questions have been answered. He would like to proceed with this plan as I have described it above. 10/06/17: No fevers, WBC down to normal this morning, exam unchanged but only with 12 hours of antibiotics. Will continue conservative management with IV abx. Continue bowel rest and IV fluids. Surgery if fails to respond to conservative treatment or clinically worsens. 10/07/17: Doing well. Afebrile. Exam improving. Vitals all look good, no tachycardia. Still no flatus. AM labs pending at time of this note so WBC normal yesterday, awaiting this morning's results. If no flatus by tomorrow morning, will repeat abdominal/pelvis CT tomorrow. So far, clinically improving other than bowel function. Continue IV abx, bowel rest, IV fluids, etc. 10/08/17: Continued improvement. No fevers for entire admission thus far, WBC remains normal, no tachycardia, vitals all look good. Bowel function is returning. Will start clear diet today. O/W, continue current management with IV abx, IV fluids, and follow his exam and subjective report as well as vitals and labs for signs of continued improvement. If improvement stalls or his WBC increases or he develops fevers then CT will need to be repeated to look for drainable abscess or need for ex-lap. Again reiterated that although he's improving, there's still a chance he'll need surgery during this admission. He seems to understand this and is agreeable with this plan. 10/09/17: Doing well. Afebrile, VSS, no tachycardia. WBC remains normal. Will try regular diet. If he tolerates this then PO abx/meds this afternoon with hope for d/c tomorrow. 10/10/17: Did well, ate regular diet. Transition to PO abx. Will monitor response on PO. Also transition off IV pain meds. D/c this afternoon vs. AM. 10/11/17: Nausea with PO pain abx, but still able to tolerate diet. WBC remains normal, afebrile. D/c to home with PO meds. F/u with Dr. Santillan this week in clinic. (2) Perforated diverticulum Status: Acute (3) Free intraperitoneal air Status: Acute Exam Sepsis Risk: No Definite Risk Problem Qualifiers (1) Diverticulitis of large intestine with abscess: Diverticulitis bleeding: without bleeding Qualified Codes: K57.20 - Diverticulitis of large intestine with perforation and abscess without bleeding ZAYDA ABEL MD Oct 11, 2017 08:23
[2017-10-11] MEDS ORDERED: ONDA4TAB PO (08:37)
[2017-10-11] MEDS ORDERED: AMOX1TAB9 PO (08:37)
[2017-10-11] MEDS ORDERED: METR-160 PO (08:37)
[2017-10-11] MEDS ORDERED: LOR5/325 PO (08:37)
[2017-10-11] MEDS: METRONIDAZOLE 500 MG TABLET PO SCH ×2 (08:48→13:10)
[2017-10-11] MEDS: AMOX/CLAV 875 MG TAB PO SCH (08:48)
[2017-10-11] MEDS: ENOXAPARIN 40 MG/0.4ML SYR SC SCH (08:48)
[2017-10-11] MEDS: DOCUSATE SODIUM 100 MG CAP PO SCH (08:48)
[2017-10-11 08:51] VITALS: BP 132/86
[2017-10-11] MEDS: ONDANSETRON 4 MG/2 ML VIAL IVP PRN (08:55)
[2017-10-11] MEDS ORDERED: PANTOPRAZOLE SOD 40 MG TABEC PO SCH (09:00)
--- NOTE | 2017-10-14 07:32 | Short(Outpt) Discharge Summary ---
Discharge Summary Reason for Hosp/Final Diag: (1) Diverticulitis of large intestine with abscess Status: Acute Hospital Course & Plan: 10/05/17: This patient has CT evidence of sigmoid diverticulitis with a perforation. He has a 2.8 cm, probable, abscess. There is also sparkles of free air around his abdomen. His white blood cell count is 16, 000. He is afebrile and not tachycardic and his vital signs are normal. His abdominal exam is relatively benign, the most tender part of his exam is his umbilical hernia. Given this clinical picture, I have discussed with him conservative management with IV antibiotics versus immediate surgery to include sigmoid colectomy with colostomy. I have recommended starting with conservative management, IV antibiotics and bowel rest, and if he fails to respond to this over the next couple of days, his white blood cell count is increasing, he is having fevers, tachycardia, worsening abdominal exam, then we will need to proceed with exploratory laparotomy. After explaining these options with him including my recommendation, he would like to proceed with conservative management. I have explained to him that if he starts having recurring fevers, tachycardia, worsening abdominal exam, or his white blood cell count is going up or he is not responding to therapy, i.e. he is not improving after a couple of days of conservative therapy, then he will require exploratory laparotomy with sigmoid colectomy and colostomy. He seems to understand this plan and his questions have been answered. He would like to proceed with this plan as I have described it above. 10/06/17: No fevers, WBC down to normal this morning, exam unchanged but only with 12 hours of antibiotics. Will continue conservative management with IV abx. Continue bowel rest and IV fluids. Surgery if fails to respond to conservative treatment or clinically worsens. 10/07/17: Doing well. Afebrile. Exam improving. Vitals all look good, no tachycardia. Still no flatus. AM labs pending at time of this note so WBC normal yesterday, awaiting this morning's results. If no flatus by tomorrow morning, will repeat abdominal/pelvis CT tomorrow. So far, clinically improving other than bowel function. Continue IV abx, bowel rest, IV fluids, etc. 10/08/17: Continued improvement. No fevers for entire admission thus far, WBC remains normal, no tachycardia, vitals all look good. Bowel function is returning. Will start clear diet today. O/W, continue current management with IV abx, IV fluids, and follow his exam and subjective report as well as vitals and labs for signs of continued improvement. If improvement stalls or his WBC increases or he develops fevers then CT will need to be repeated to look for drainable abscess or need for ex-lap. Again reiterated that although he's improving, there's still a chance he'll need surgery during this admission. He seems to understand this and is agreeable with this plan. 10/09/17: Doing well. Afebrile, VSS, no tachycardia. WBC remains normal. Will try regular diet. If he tolerates this then PO abx/meds this afternoon with hope for d/c tomorrow. 10/10/17: Did well, ate regular diet. Transition to PO abx. Will monitor response on PO. Also transition off IV pain meds. D/c this afternoon vs. AM. 10/11/17: Nausea with PO pain abx, but still able to tolerate diet. WBC remains normal, afebrile. D/c to home with PO meds. F/u with Dr. Cervantes this week in clinic. 10/14/17: I didn't see Mr. Kramer on either 10/10/17 or 10/11/17 (Thursday/Thursday ) as Dr. Belcher was covering the surgical service and saw him on those 2 days. I have been directed by [facility] medical records to complete this patient's discharge summary although Dr. Belcher actually discharged Mr. Kramer on 10/11/17, in my absence. I am seeing him back in my office this afternoon. (2) Perforated diverticulum Status: Acute (3) Free intraperitoneal air Status: Acute Departure Discharge to: Home, Self Care Discharge Instructions Home Meds Active Scripts Ondansetron (ZOFRAN ODT) 4 Mg Tab.rapdis, 4 MG PO Q12H Y for NAUSEA, #10 TAB.PINKY Prov:ZAYDA BELCHER MD 10/11/17 Metronidazole (METRONIDAZOLE) 500 Mg Tablet, 500 MG PO QID for 10 Days, #40 TAB Prov:ZAYDA BELCHER MD 10/11/17 Hydrocodone Bit/Acetaminophen (HYDROCODON-ACETAMINOPHEN 5-325) 1 Each Tablet, 1 EACH PO Q4H Y for PAIN for 5 Days, #20 TAB Prov:ZAYDA BELCHER MD 10/11/17 Amoxicillin/Potassium Clav (AMOX TR-K CLV 875-125 MG TAB) 1 Each Tablet, 875 MG PO BIDBS for 10 Days, #20 TAB Prov:ZAYDA BELCHER MD 10/11/17 Follow up Referrals: General Surgery with Roe Cervantes Md Diet: Regular Activity: As Tolerated Special Instructions: Problem Qualifiers (1) Diverticulitis of large intestine with abscess: Diverticulitis bleeding: without bleeding Qualified Codes: K57.20 - Diverticulitis of large intestine with perforation and abscess without bleeding ROE CERVANTES MD October 14, 2017 07:32
== END 2017-10-11 14:25 | disposition home or self-care (01) | DRG 392 ==
LOC: ER 14:08 → MED 16:43
PROVIDERS: ADMIT Surgery; ATTEND Surgery
DX: K57.20 Diverticulitis of large intestine with perforation and abscess without bleeding (principal); K92.1 Melena
CPT/HCPCS: 36415; 74177; 81001; 82040; 82150; 82247; 82274; 82310; 82374; 82435; 82565; 82947; 83690; 84075; 84132; 84155; 84295; 84450; 84460; 84520; 85025; 85027; 99285; C9113; J0692; J1170; J1200; J1335; J1650; J2405; J2550; J3010; J3480; J3490; J7030; J7050; Q9967

== ENCOUNTER → 2017-10-14 | Outpatient (CLI) | payer SELFPAY ==
[~2017-10-14] MED LIST: AMOX1TAB9 PO; LOR5/325 PO; METR-160 PO; ONDA4TAB PO
[2017-10-14 17:38] LABS: PLATELET COUNT, AUTOMATED 315 K/uL (150-450)
== END ==
LOC: LAB 17:16
PROVIDERS: ATTEND Surgery
DX: K57.80 Diverticulitis of intestine, part unspecified, with perforation and abscess without bleeding (principal); K57.20 Diverticulitis of large intestine with perforation and abscess without bleeding
CPT/HCPCS: 36415; 82310; 82374; 82435; 82565; 82947; 84132; 84295; 84520; 85025

== ENCOUNTER 2017-10-15 14:43 | Inpatient (IN) | payer SELFPAY ==
[2017-10-15] VITALS (11 sets, daily range): BP systolic 113–164; BP diastolic 77–109
[~2017-10-15] VITALS: Ht 188 cm; Wt 110.2 kg
--- NOTE | 2017-10-15 14:24 | Gen Surgery History & Physical ---
History of Present Illness Chief Complaint Abdominal pain History of Present Illness 41yo male, d/griselda from [facility] Med/Surg 4 days ago after being treated conservatively for perforated diverticulitis with an abscess. He responded well to conservatively therapy and was feeling well on discharge but he has had persistent nausea, possibly due to metronidazole. We obtained a repeat CT scan this morning to reassess the diverticulitis and abscess for interval change and the abscess is bigger. For this reason, he is being admitted and consented for surgical abscess drainage. History Home Meds Active Scripts Ondansetron (ZOFRAN ODT) 4 Mg Tab.rapdis, 4 MG PO Q12H Y for NAUSEA, #10 TAB.PINKY Prov:ZAYDA ABEL MD 10/11/17 Metronidazole (METRONIDAZOLE) 500 Mg Tablet, 500 MG PO QID for 10 Days, #40 TAB Prov:ZAYDA ABEL MD 10/11/17 Hydrocodone Bit/Acetaminophen (HYDROCODON-ACETAMINOPHEN 5-325) 1 Each Tablet, 1 EACH PO Q4H Y for PAIN for 5 Days, #20 TAB Prov:ZAYDA ABEL MD 10/11/17 Amoxicillin/Potassium Clav (AMOX TR-K CLV 875-125 MG TAB) 1 Each Tablet, 875 MG PO BIDBS for 10 Days, #20 TAB Prov:ZAYAD ABEL MD 10/11/17 Allergies: Coded Allergies: No Known Drug Allergies (Unverified , 10/05/17) Patient History: Patient reports no known family medical history. Review of Systems All Systems Reviewed/Normal: Yes, Except as Noted Gastrointestinal: Nausea, Abdominal Pain Exam General Appearance: Alert, Awake, No Acute Distress, Afebrile Neuro: No Gross deficits Eyes: PERRLA GI: Other (Soft, diffuse lower abdominal TTP, no palpable mass or peritoneal signs. Moderate-sized UH, easily reducible.) Extremities: Warm, Perfused Assessment and Plan Problems: (1) Diverticulitis of large intestine with abscess Status: Acute Assessment & Plan: 10/15/17: Admit, NPO, IV fluids, IV abx, to OR for laparoscopic exploration with surgical drainage of the abscess, possible sigmoid colectomy if sigmoid colon is still emitting stool, will plan on colostomy if colectomy is necessary. I have explained the CT results and the reason for surgery to the patient in detail. I have described the surgery and possible permutations depending on intraoperative findings with him in great detail as well as alternatives, risks, and expected recovery. He indicates his understanding of this discussion and his questions have been answered. He would like to proceed with this plan including surgery. Condition Stable. Time Spent: < 30 min Venous Thromboembolism VTE Risk Physician Assess for VTE Risk: Yes Patient's VTE Risk: Low VTE Diagnostic Test 2 Days Prior to Admit: No Antithrombotics Is Pt On Any Antithrombotics?: No Problem Qualifiers (1) Diverticulitis of large intestine with abscess: Diverticulitis bleeding: without bleeding Qualified Codes: K57.20 - Diverticulitis of large intestine with perforation and abscess without bleeding ROE CERVANTES MD October 15, 2017 14:24
[~2017-10-15 14:43] MED LIST changes: -DEXAMETHASONE SOD PHOS 10MG/ML ONE; +FAMOTIDINE 20 MG TAB PO ONE; +IMIPENEM/CILASTA(*) 500MG VIAL 500 MG in NS(*) 0.9% 100 ML BAG 100 ML IVPB ONE; -IOPAMIDOL 76% 75 ML INFUS BTL 75 ML ONE; -LIDOCAINE MPF 1% 5 ML VIAL ONE; +LIDOCAINE/SOD BICARB 8.4% SYR ID ONE; +MIDAZOLAM 2 MG/2 ML VIAL IVP PRN; -MIDAZOLAM 2 MG/2 ML VIAL ONE; +NORMOSOL R SOLN(*) 1000 ML BAG 1,000 ML IV PRN; -NS 0.9% 20 ML SDV 20 ML ONE; -ONDANSETRON 4 MG/2 ML VIAL ONE; -PROPOFOL EMUL(*) 10MG/ML 20 ML 20 ML ONE; -ROCURONIUM BROM 10 MG/ML 10 ML ONE; +ROPIVACAINE 0.5% 20 ML VIAL ONE; -SUGAMMADEX SOD 200 MG/2 ML SDV ONE; -fentaNYL CITR 100 MCG/2 ML AMP ONE
[2017-10-15] MEDS ORDERED: KETAMINE HCL 200 MG/20 ML MDV ONE ×2 (16:04→17:07)
[2017-10-15] MEDS ORDERED: ACETAMINOPHEN(*)1000 MG/100 ML 100 ML IVPB ONE (16:12)
[2017-10-15] MEDS ORDERED: HYDROmorphone HCL 2 MG/ML SDV ONE ×2 (16:20→19:06)
[2017-10-15] MEDS ORDERED: PROPOFOL EMUL(*) 10MG/ML 20 ML 20 ML ONE (16:40)
[2017-10-15] MEDS ORDERED: SUGAMMADEX SOD 500 MG/5 ML SDV ONE (16:51)
[2017-10-15] MEDS ORDERED: fentaNYL CITR 100 MCG/2 ML AMP ONE ×3 (17:02→19:05)
[2017-10-15] MEDS ORDERED: ROPIVACAINE 0.5% 20 ML VIAL ONE (17:53)
[2017-10-15] MEDS ORDERED: NS 0.9% IRRIGATION 1000ML PLCT IR ONE (18:49)
[2017-10-15] MEDS ORDERED: NALOXONE HCL 0.4 MG/ML VIAL IVP PRN (19:10)
[2017-10-15] MEDS ORDERED: FLUSH 10 ML SYR IVP PRN (19:10)
--- NOTE | 2017-10-15 19:33 | Post Operative Progress Note ---
Post Operative Progress Note Date: October 15, 2017 Time: 19:19 Surgeon: Jacque Dictation number: [id number] Anesthesia: GETA by Dr. Pineda/Ruben Pre-Op Diagnosis: Perforated diverticulitis with abscess Post-Op Diagnosis: ARIADNE Findings: Phlegmon between sigmoid colon and small bowel with intervening abscess Procedure(s): Exploratory laparoscopy converted to laparotomy Sigmoid colectomy Mobilization of splenic flexure Colostomy Specimen Removed:(May be N/A): Sigmoid colon/small bowel Complications: None Fluids: See anesthesia record Estimated Blood Loss: 100mL Date OP Note Dictated: October 15, 2017 Time OP Note Dictated: 19:21 ROE CERVANTES MD October 15, 2017 19:33
[2017-10-15] MEDS: HYDROmorphone PCA 6 MG/30 ML IV PRN (20:40)
[2017-10-15] MEDS: IMIPENEM/CILASTA(*) 500MG VIAL 500 MG in NS(*) 0.9% 100 ML BAG 100 ML IVPB SCH (20:40)
--- NOTE | 2017-10-15 20:41 | OPERATIVE REPORT 1 ---
EVENT DATE: October 15, 2017 SURGEON: Garfield Santillan MD ANESTHESIOLOGIST: Initially Ford Pineda MD, and then Ender Miranda MD, relieved Dr. Pineda. ANESTHESIA: General endotracheal anesthesia. PREOPERATIVE DIAGNOSIS Perforated diverticulitis with abscess. POSTOPERATIVE DIAGNOSIS Perforated diverticulitis with abscess. PROCEDURES PERFORMED 1. Exploratory laparoscopy. 2. Conversion to laparotomy. 3. Sigmoid colectomy. 4. Mobilization of splenic flexure. 5. Small bowel resection with anastomosis. 6. Colostomy. SPECIMENS Sigmoid colon with attached segment of small bowel. FINDINGS This patient had a phlegmon associated with his sigmoid colon and associated adjacent small bowel with an intervening abscess. INDICATIONS This is a 41-year-old gentleman whom I admitted last week to the hospital with sigmoid diverticulitis with evidence of perforation and a small abscess. His exam was benign, and he was not having any fevers, and so I treated him conservatively with IV antibiotics. His white blood cell count which was initially 16,000 came down to normal the next morning, and he continued to improve and ultimately was discharged to home four days ago. I saw him in my office yesterday, and he reported having particularly difficult days on Thursday and Thursday of this week, but yesterday, he was starting to feel better. Because of the abscess, I elected to get a CT scan today. The abscess on the scan today was bigger, although the inflammation in the colon and small bowel seemed to be better, and there was no longer any free air. Because the abscess was bigger, I discussed laparoscopic exploration with attempted drainage of the abscess since it was not accessible percutaneously due to the small bowel draped all around it. I discussed with him that if I could not drain the abscess laparoscopically that I would have to proceed with a sigmoid colectomy and colostomy. DESCRIPTION OF PROCEDURE The patient was brought to the operating room and placed upon the operating table. General endotracheal anesthesia was administered, and his abdomen was prepped and draped in a sterile fashion. Timeout was completed. I injected 0.5 % ropivacaine plain into the right upper quadrant subcostal skin, then made a 5 mm incision, and inserted a Veress needle into the peritoneal cavity. I insufflated the cavity to a pressure of 15 mmHg. I then used an optical 5 mm trocar and inserted this into his abdomen under direct visualization. I then placed two more 5 mm ports in the right mid abdomen and right lower quadrant. I then looked at the small bowel and found the area of phlegmon and attempted to remove the small bowel away from the sigmoid colon. I ultimately popped into the abscess cavity and suctioned out what appeared to be stool from this abscess cavity. I continued to try to separate the small bowel from the sigmoid colon, but was unable to. Because of the degree of inflammation and removing stool from the abscess cavity, I elected to proceed with a laparotomy with sigmoid colectomy. I removed the instruments and 5 mm ports, and we set up for a laparotomy. I made a vertical midline incision after anesthetizing the skin. The incision was from just above the umbilicus to the suprapubic region. I dissected through the dermis, the subcutaneous fat, and identified the midline fascia. I then incised the midline fascia along the entire length of the skin incision as well as the peritoneum. The peritoneum was entered without any problems. I then set up a Kasey retractor system and ran the bowel from ligament of Treitz to terminal ileum. There were two segments of small bowel that were adherent to the sigmoid colon. One of them was rather easily , but the second one could not be from the sigmoid colon. There was a big, hard mass in the mid sigmoid colon associated with small bowel, so I found a segment of colon at the rectosigmoid junction and made a hole in the mesentery and divided it with an Endo EDILSON stapler with a blue load. I then began dividing the lateral attachment to the sigmoid colon and then divided the mesocolon from the distal line of division and moving up proximally. Ultimately, I identified a section of small bowel that appeared healthy distal and proximal to the phlegmon. I made holes in the mesentery and divided the small bowel in this area and then divided the small bowel mesentery with the Harmonic scalpel in a hemostatic fashion. I found an area of colon proximal to the phlegmon and made a hole in the mesentery and divided the colon in this area and then divided the mesocolon with the Harmonic scalpel. This specimen was then passed off the field. I then completed a [id number], functional end-to-end small bowel anastomosis by placing the bowel segments next to each other and then using bowel clamps to contain any enteral spillage. I then made two enterotomies in the adjacent pieces of bowel and then used the EDILSON stapler and fired the stapler with them next to each other to complete a [id number] anastomosis. The conjoined enterotomy was closed with running 4- 0 Monocryl sutures on the inner layer, and the entire suture and staple line were then oversewn with interrupted Lembert-type 3-0 [address] all the way around. The mesenteric defect was closed with running 3-0 Vicryl sutures. I then inspected the end of the colon to see if I had enough length to bring it up for a colostomy, and there was not. I then mobilized the entire descending colon and splenic flexure and the omentum away from the distal transverse colon. After I mobilized the splenic flexure, there was plenty of length. It appeared that the distal portion of the colon looked somewhat dark, but there was plenty of colon, and so I found a well-perfused segment and divided it with the EDILSON stapler. I then irrigated and dried the abdominal cavity with 6 L of warm saline in all quadrants and made sure that there was no bleeding anywhere. I removed all the irrigation fluid. I then anesthetized the skin in the patient's left lower quadrant and removed a 50 cent size piece of skin and then dissected through the fat all the way down to the anterior rectus fascia. I then made a vertical incision in the rectus sheath and split the muscles to either side, then went through the posterior sheath, and then entered the peritoneal cavity while my hand was in the inside protecting the underlying viscera. I then used a [place] clamp and pulled the distal portion of the colon and the staple line out through this wound. I then closed the midline incision with running 0 looped PDS sutures. I then loosely closed the midline incision with skin brendan, and then each 5 mm port was closed with a single staple. I then placed the 1010 drape over the midline incision and the 5 mm ports on the right side of the abdomen to protect them from contamination from the stoma. I then matured the stoma by sewing the bowel to the anterior rectus sheath with interrupted 3-0 Vicryl sutures and then matured the stoma by cutting off the staple line and sewing it to the skin so it protruded beyond the skin and was everted back with running 4-0 Monocryl sutures. His abdomen was then cleaned and dried, and a stoma appliance was placed around the colostomy. I placed a Prevena VAC dressing over the midline incision. He was then awakened, extubated in the operating room, and transported to the recovery room in stable condition having tolerated the procedure without any apparent problems. BRITTANY
[2017-10-15] MEDS: ONDANSETRON 4 MG/2 ML VIAL IVP PRN (21:19)
[2017-10-15] MEDS: ACETAMINOPHEN(*)1000 MG/100 ML 100 ML IVPB SCH (22:11)
[2017-10-15] MEDS: PROMETHAZINE 25 MG/ML 1 ML AMP IVP PRN (22:37)
[2017-10-16] VITALS (18 sets, daily range): BP systolic 103–146; BP diastolic 55–96; BMI 31.2
[2017-10-16] MEDS: NS(*) 0.9% 1000 ML BAG 1,000 ML IV PRN ×3 (01:11→23:51)
[2017-10-16] MEDS: IMIPENEM/CILASTA(*) 500MG VIAL 500 MG in NS(*) 0.9% 100 ML BAG 100 ML IVPB SCH ×4 (02:31→20:19)
[2017-10-16] MEDS: ONDANSETRON 4 MG/2 ML VIAL IVP PRN (02:32)
[2017-10-16] MEDS: ACETAMINOPHEN(*)1000 MG/100 ML 100 ML IVPB SCH ×4 (03:59→21:39)
[2017-10-16] MEDS: HYDROmorphone PCA 6 MG/30 ML IV PRN ×2 (04:07→14:41)
[2017-10-16 05:49] LABS: PLATELET COUNT, AUTOMATED 316 K/uL (150-450)
[2017-10-16] MEDS: PROMETHAZINE 25 MG/ML 1 ML AMP IVP PRN ×2 (07:20→20:24)
--- NOTE | 2017-10-16 07:52 | General Surgery Progress Note ---
Subjective Progress Notes Subjective Main complaint is postop pain. He doesn't think the dilaudid RETANNED LEATHER ROLLER is helping much. Physical Exam Vital Signs Date Time Temp Pulse Resp B/P (MAP) Pulse Ox O2 Delivery O2 Flow Rate FiO2 10/16/17 07:31 93 Nasal Cannula 2.0 10/16/17 07:22 97.6 66 16 103/55 (71) General Appearance: Alert, Awake, No Acute Distress, Afebrile GI: Other (Soft, appropriate postop TTP, Prevena vac dressing is in place with good vacuum seal. Stoma is dark, unclear if ecchymotic or dusky from poor perfusion. Small amount of blood in bag.) Extremities: Warm, Perfused Result Diagram: 10/16/1752410/16/17524 Assessment and Plan Problems: (1) Diverticulitis of large intestine with abscess Status: Acute Assessment & Plan: 10/15/17: Admit, NPO, IV fluids, IV abx, to OR for laparoscopic exploration with surgical drainage of the abscess, possible sigmoid colectomy if sigmoid colon is still emitting stool, will plan on colostomy if colectomy is necessary. I have explained the CT results and the reason for surgery to the patient in detail. I have described the surgery and possible permutations depending on intraoperative findings with him in great detail as well as alternatives, risks, and expected recovery. He indicates his understanding of this discussion and his questions have been answered. He would like to proceed with this plan including surgery. 10/16/17: POD#1 s/p ex-lap, sigmoid colectomy, small bowel resection, splenic flexure mobilization, colostomy. Will work on pain control by going up on RETANNED LEATHER ROLLER settings gradually until improved pain control achieved. He's on IV tylenol, will hold off on toradol for another day. Will keep an eye on stoma, may need to revise this in next day or two if continues to get darker c/w ischemia. Ambulate today, PT/OT, IS, pulmonary hygiene. Will keep bird in today, plan on removing tomorrow. Condition Stable. Time Spent: < 30 min Exam Sepsis Risk: No Definite Risk Problem Qualifiers (1) Diverticulitis of large intestine with abscess: Diverticulitis bleeding: without bleeding Qualified Codes: K57.20 - Diverticulitis of large intestine with perforation and abscess without bleeding ROE CERVANTES MD October 16, 2017 07:52
[2017-10-16] MEDS: PANTOPRAZOLE SOD 40 MG IV VIAL IVP SCH (09:00)
[2017-10-16] MEDS: diphenhydrAMINE 50 MG/ML VIAL IVP PRN ×2 (14:19→21:44)
[2017-10-16] MEDS ORDERED: ONDANSETRON 4 MG/2 ML VIAL ONE (14:30)
[2017-10-16] MEDS ORDERED: ROCURONIUM BROM 10 MG/ML 10 ML ONE (14:30)
[2017-10-16] MEDS ORDERED: LABETALOL HCL 100 MG/20ML VIAL ONE (14:30)
[2017-10-16] MEDS ORDERED: NORMOSOL R SOLN(*) 1000 ML BAG 1,000 ML IV ONE (16:05)
[2017-10-16] MEDS ORDERED: ROPIVACAINE 0.5% 20 ML VIAL ONE (17:05)
[2017-10-16] MEDS ORDERED: BUPIVACAINE/EPI 0.5% 50ML VIAL INFIL ONE (17:17)
--- NOTE | 2017-10-16 19:05 | Post Operative Progress Note ---
Post Operative Progress Note Date: October 16, 2017 Time: 18:56 Surgeon: Jacque Dictation number: [id number] Anesthesia: GETA by Dr. Pineda Pre-Op Diagnosis: Ischemic colostomy Post-Op Diagnosis: ARIADNE Findings: Distal 3cm of colostomy ischemic with well perfused colon proximally Procedure(s): Reopening of laparotomy with colostomy revision Specimen Removed:(May be N/A): Colostomy Complications: None Fluids: See anesthesia record Estimated Blood Loss: Minimal Date OP Note Dictated: October 16, 2017 Time OP Note Dictated: 18:57 ROE CERVANTES MD October 16, 2017 19:05
--- NOTE | 2017-10-16 20:15 | OPERATIVE REPORT 1 ---
EVENT DATE: October 16, 2017 SURGEON: Garfield Santillan MD ANESTHESIOLOGIST: Ford Pineda MD ANESTHESIA: General endotracheal anesthesia. PREOPERATIVE DIAGNOSIS Ischemic colostomy. POSTOPERATIVE DIAGNOSIS Ischemic colostomy. PROCEDURE PERFORMED Re-opening of laparotomy with colostomy revision. COMPLICATIONS None. CONDITION Stable. BLOOD LOSS Minimal. FINDINGS The distal 3 cm of this patient's colon that was involved in the colostomy was ischemic. The bowel was well perfused proximal to this line of demarcation. SPECIMEN Colostomy. INDICATIONS This is a 41-year-old gentleman who underwent a laparotomy yesterday with sigmoid colectomy and colostomy for perforated diverticulitis. His stoma was nice and pink last night. However, when I rounded this morning, it was purple and dusky, and then as the day progressed, it continued to darken, and so he was consented for colostomy revision to bring up well-perfused colon. DESCRIPTION OF PROCEDURE The patient was brought to the operating room and placed supine on the operating table. General endotracheal anesthesia was administered, and I removed the Prevena VAC, all the dressings, and the stoma appliance, and sewed the stoma shut with a 3-0 silk [id number] suture. His abdomen was then prepped and dried, and I removed all of the midline brendan and cut out the PDS suture that I used to close the fascia. I then opened up the abdomen, and I was able to inspect the small bowel anastomosis, and it looked good, well perfused, no tension. I then cut the sutures from around the colostomy and pulled the colostomy into the patient's abdomen and noticed the distal 3 cm really looked ischemic with a sharp line of demarcation. I then trimmed this off and found mostly well-perfused mucosa on the inside, but there was a small area of ischemia on one side, so I trimmed another 5 mm off. There was no remaining ischemic bowel wall at this point, and it bled rather briskly. I then pulled this back out through the colostomy track in the patient's right mid abdomen and made sure that there was plenty of colon externally and made sure there was no tension internally or externally. I then covered up the midline incision and then went ahead and matured the stoma by placing 3-0 Vicryl sutures in four coordinate positions and then everting the colon in a modified Flor fashion and sewing the mucosa to the surrounding skin with running 4-0 Monocryl sutures. It looked nice and perfused throughout this whole procedure. I then put on new gloves and closed the midline fascia with running 0 looped PDS sutures, and the skin was closed with skin brendan. During this whole time I was closing the midline fascia and incision, I monitored the stoma, and it continued to appear pink and did not at all become dusky. After this was done, his abdominal skin was cleaned and dried, and I placed a new colostomy appliance around the stoma and then placed a Prevena VAC dressing in the midline incision and Primapore dressings over the three 5 mm port sites on the patient's right side of his abdomen. When this was all done, Dr. Pineda did TAP blocks to provide improved postoperative pain control. The patient was then awakened and extubated in the operating room and transported to the recovery room in stable condition having tolerated the procedure without any apparent problems. BRITTANY
[2017-10-16] MEDS: ZOLPIDEM TARTRATE 10 MG TAB PO SCH (21:39)
[2017-10-17] VITALS (8 sets, daily range): BP systolic 110–142; BP diastolic 60–98; Ht 188 cm; Wt 110.2 kg
[2017-10-17] MEDS: HYDROmorphone PCA 6 MG/30 ML IV PRN ×3 (00:58→22:18)
[2017-10-17] MEDS: IMIPENEM/CILASTA(*) 500MG VIAL 500 MG in NS(*) 0.9% 100 ML BAG 100 ML IVPB SCH ×4 (01:45→20:02)
[2017-10-17] MEDS: ACETAMINOPHEN(*)1000 MG/100 ML 100 ML IVPB SCH ×4 (03:51→21:21)
[2017-10-17] MEDS: diphenhydrAMINE 50 MG/ML VIAL IVP PRN (03:51)
[2017-10-17 05:44] LABS: PLATELET COUNT, AUTOMATED 284 K/uL (150-450)
[2017-10-17] MEDS: PANTOPRAZOLE SOD 40 MG IV VIAL IVP SCH (09:00)
[2017-10-17] MEDS: NS(*) 0.9% 1000 ML BAG 1,000 ML IV PRN ×2 (10:09→20:05)
--- NOTE | 2017-10-17 10:40 | General Surgery Progress Note ---
Subjective Progress Notes Subjective Feeling much better. Pain under improved control. No appetite yet. Wants bird catheter out. Physical Exam Vital Signs Date Time Temp Pulse Resp B/P (MAP) Pulse Ox O2 Delivery O2 Flow Rate FiO2 10/17/17 07:04 98.4 63 16 110/64 (79) 95 Nasal Cannula 2.0 General Appearance: Alert, Awake, No Acute Distress, Afebrile GI: Other (Soft, appropriate postop TTP, Prevena vac dressing without good seal so this was replaced with a new prevena vac dressing. Stoma is pink, no gas or stool in bag.) Extremities: Warm, Perfused Result Diagram: 10/17/1751510/17/17515 Assessment and Plan Problems: (1) Diverticulitis of large intestine with abscess Status: Acute Assessment & Plan: 10/15/17: Admit, NPO, IV fluids, IV abx, to OR for laparoscopic exploration with surgical drainage of the abscess, possible sigmoid colectomy if sigmoid colon is still emitting stool, will plan on colostomy if colectomy is necessary. I have explained the CT results and the reason for surgery to the patient in detail. I have described the surgery and possible permutations depending on intraoperative findings with him in great detail as well as alternatives, risks, and expected recovery. He indicates his understanding of this discussion and his questions have been answered. He would like to proceed with this plan including surgery. 10/16/17: POD#1 s/p ex-lap, sigmoid colectomy, small bowel resection, splenic flexure mobilization, colostomy. Will work on pain control by going up on PRODUCTION CONTROL ANALYST settings gradually until improved pain control achieved. He's on IV tylenol, will hold off on toradol for another day. Will keep an eye on stoma, may need to revise this in next day or two if continues to get darker c/w ischemia. Ambulate today, PT/OT, IS, pulmonary hygiene. Will keep bird in today, plan on removing tomorrow. 10/17/17: POD#2 and POD#1 from stoma revision due to ischemic colostomy. Doing well. Pain control better. Will remove bird, start toradol, ambulate, IS, pulmonary hygiene, await return of bowel function. Condition Stable. Time Spent: < 30 min Exam Sepsis Risk: No Definite Risk Problem Qualifiers (1) Diverticulitis of large intestine with abscess: Diverticulitis bleeding: without bleeding Qualified Codes: K57.20 - Diverticulitis of large intestine with perforation and abscess without bleeding ROE CERVANTES MD October 17, 2017 10:40
[2017-10-17] MEDS: KETOROLAC 30 MG/ML VIAL IVP SCH ×3 (13:08→23:42)
[2017-10-17] MEDS: PROMETHAZINE 25 MG/ML 1 ML AMP IVP PRN ×2 (14:46→22:18)
[2017-10-17] MEDS: ZOLPIDEM TARTRATE 10 MG TAB PO SCH ×2 (20:36→21:35)
--- NOTE | 2017-10-17 22:08 | Medical Nutrition Therapy ---
Nutrition Anthropometrics Height (Inches): 74.00 Height (Calculated Centimeters: 187.054387 Weight (Pounds): 243 Weight (Calculated Kilograms): 110.450 BMI Calculated: 31.20 Saulo Nutrition Score: Adequate Saulo Nutrition Risk Score: 17 Dietary Referral Nutrition Risk Factors: Recent Nutrition Impact Nutrition Risk Comment: Physical Findings Physical Appearance: Obese BMI 30-39 Skin Appearance Skin Appearance: Edema Edema Location Modifier: Edema Location: Type of Edema: Degree of Edema: Gastrointestinal Symptoms GI Symtoms: Change in Bowel Pattern Tube Present: Bowel Sounds: Recent Bowel Pattern: Diarrhea, Colostomy Stool Characteristics: Nutrition/Food History No Significant Nutr. HX Nutritional Diagnosis Nutritional Risk Acuity 2: New Colostomy Past Medical History: Pt hx perforated diverticulum, diverticulitis of large intestine with abscess. Nutritional Acuity: 2-Moderate Nutrition Diagnosis: Increased Nutrient Needs Nutrition Etiology: Physiological Causes Nutrition Problem/Etiology/Sym: Increased Nutrient Needs related to increased demand for nutrients secondary to wound healing AEB low albumin status indicating increased stress and increased metabolic needs. Adjusted Energy Requirement Re: 2514 (Law [place] Adj REE X 1.3) Protein Requirement: 88 (Actual BW kg X 0.8) Fluid Requirement: 2514 Diet Type: NPO/Ice Chips Only Nutrition Intervention: Encourage intake, Change diet, Incr diet as tolerated Nutrition Monitoring & Eval Nutrition Goals: Eat 50-100% Meal RD Patient Assessment Time: [address] Assessment Type: RD Assessment Patient Nutrition Acuity: 2-Moderate Follow Up Date: October 18, 2017 Nutritional Comment: (10/16): Pt was admitted for diverticulitis with abscess and abdominla pain pain. Pt recieved conservative therapy and responded well.(10/15) Pt still continues to experince pain postop.Pt diet order NPO with no intakes recorded.Pt has an elevated random blood glucose of 114, low creatinine 0.60, and low calcium of 6.2. Monitor pt progress, plan and diet advancement. Provide nutrition education when approperiate. -MT 10/17 NPO with ice chips. High WBC, Low Ca+. Follow for diet change. - RENEE SEARS October 17, 2017 22:08
[2017-10-17] MEDS: ONDANSETRON 4 MG/2 ML VIAL IVP PRN (23:43)
[2017-10-18] MEDS: IMIPENEM/CILASTA(*) 500MG VIAL 500 MG in NS(*) 0.9% 100 ML BAG 100 ML IVPB SCH ×4 (01:47→20:32)
[2017-10-18 03:52] VITALS: BP 115/61
[2017-10-18] MEDS: diphenhydrAMINE 50 MG/ML VIAL IVP PRN ×2 (04:01→23:25)
[2017-10-18] MEDS: ACETAMINOPHEN(*)1000 MG/100 ML 100 ML IVPB SCH ×4 (04:01→22:06)
[2017-10-18] MEDS: HYDROmorphone PCA 6 MG/30 ML IV PRN ×2 (04:50→16:39)
[2017-10-18] MEDS: KETOROLAC 30 MG/ML VIAL IVP SCH ×3 (05:19→18:02)
[2017-10-18] MEDS: NS(*) 0.9% 1000 ML BAG 1,000 ML IV PRN ×2 (05:23→15:43)
[2017-10-18 05:47] LABS: PLATELET COUNT, AUTOMATED 250 K/uL (150-450)
[2017-10-18 09:00] VITALS: BP 103/65
[2017-10-18] MEDS: PANTOPRAZOLE SOD 40 MG IV VIAL IVP SCH (09:01)
--- NOTE | 2017-10-18 10:08 | General Surgery Progress Note ---
Subjective Progress Notes Subjective No complaints. Appetite returning. Pain well controlled. Physical Exam Vital Signs Date Time Temp Pulse Resp B/P (MAP) Pulse Ox O2 Delivery O2 Flow Rate FiO2 10/18/17 09:00 98.6 65 18 103/65 (78) 97 Nasal Cannula 1.5 General Appearance: Alert, Awake, No Acute Distress, Afebrile GI: Other (Soft, appropriate postop TTP, Prevena vac dressing is in place with a good seal. Stoma is pink, no gas or stool in bag.) Result Diagram: 10/18/17 0511 10/18/17 0511 Assessment and Plan Problems: (1) Diverticulitis of large intestine with abscess Status: Acute Assessment & Plan: 10/15/17: Admit, NPO, IV fluids, IV abx, to OR for laparoscopic exploration with surgical drainage of the abscess, possible sigmoid colectomy if sigmoid colon is still emitting stool, will plan on colostomy if colectomy is necessary. I have explained the CT results and the reason for surgery to the patient in detail. I have described the surgery and possible permutations depending on intraoperative findings with him in great detail as well as alternatives, risks, and expected recovery. He indicates his understanding of this discussion and his questions have been answered. He would like to proceed with this plan including surgery. 10/16/17: POD#1 s/p ex-lap, sigmoid colectomy, small bowel resection, splenic flexure mobilization, colostomy. Will work on pain control by going up on COTTAGE SUPERVISOR settings gradually until improved pain control achieved. He's on IV tylenol, will hold off on toradol for another day. Will keep an eye on stoma, may need to revise this in next day or two if continues to get darker c/w ischemia. Ambulate today, PT/OT, IS, pulmonary hygiene. Will keep bird in today, plan on removing tomorrow. 10/17/17: POD#2 and POD#1 from stoma revision due to ischemic colostomy. Doing well. Pain control better. Will remove bird, start toradol, ambulate, IS, pulmonary hygiene, await return of bowel function. 10/18/17: POD#3, POD#2. Doing well. Awaiting return of bowel function. Continue mobilization, ambulation, IS pulmonary hygiene. Condition Stable. Time Spent: < 30 min Exam Sepsis Risk: No Definite Risk Problem Qualifiers (1) Diverticulitis of large intestine with abscess: Diverticulitis bleeding: without bleeding Qualified Codes: K57.20 - Diverticulitis of large intestine with perforation and abscess without bleeding ROE CERVANTES MD October 18, 2017 10:08
--- NOTE | 2017-10-18 10:35 | Medical Nutrition Therapy ---
Nutrition Anthropometrics Height (Inches): 74.00 Height (Calculated Centimeters: 187.140975 Weight (Pounds): 243 Weight (Calculated Kilograms): 110.450 BMI Calculated: 31.20 Saulo Nutrition Score: Probably Inadequate Saulo Nutrition Risk Score: 17 Dietary Referral Nutrition Risk Factors: Recent Nutrition Impact Nutrition Risk Comment: Physical Findings Physical Appearance: Obese BMI 30-39 Skin Appearance Skin Appearance: Edema Edema Location Modifier: Edema Location: Type of Edema: Degree of Edema: Gastrointestinal Symptoms GI Symtoms: Nausea, Change in Bowel Pattern Tube Present: Bowel Sounds: Recent Bowel Pattern: Diarrhea, Colostomy Stool Characteristics: Nutrition/Food History No Significant Nutr. HX Nutritional Diagnosis Nutritional Risk Acuity 2: New Colostomy Past Medical History: Pt hx perforated diverticulum, diverticulitis of large intestine with abscess. Nutritional Acuity: 2-Moderate Nutrition Diagnosis: Increased Nutrient Needs Nutrition Etiology: Physiological Causes Nutrition Problem/Etiology/Sym: Increased Nutrient Needs related to increased demand for nutrients secondary to wound healing AEB low albumin status indicating increased stress and increased metabolic needs. Adjusted Energy Requirement Re: 2514 (Law [place] Adj REE X 1.3) Protein Requirement: 88 (Actual BW kg X 0.8) Fluid Requirement: 2514 Diet Type: NPO/Ice Chips Only Nutrition Intervention: Encourage intake, Change diet, Incr diet as tolerated Nutrition Monitoring & Eval RD Patient Assessment Time: [address] Assessment Type: RD Assessment Patient Nutrition Acuity: 2-Moderate Follow Up Date: October 18, 2017 Nutritional Comment: (10/16): Pt was admitted for diverticulitis with abscess and abdominla pain pain. Pt recieved conservative therapy and responded well.(10/15) Pt still continues to experince pain postop.Pt diet order NPO with no intakes recorded.Pt has an elevated random blood glucose of 114, low creatinine 0.60, and low calcium of 6.2. Monitor pt progress, plan and diet advancement. Provide nutrition education when approperiate. -MT 10/17 NPO with ice chips. High WBC, Low Ca+. Follow for diet change. - DANYEL 10/18 Continues NPO with ice chips at POD #3/#2. Waiting for bowel function to return. WBC now in normal range, Low Ca+. Follow labs, diet change, etc. - RENEE SEARS October 18, 2017 10:35
[2017-10-18 11:38] VITALS: BP 100/58
[2017-10-18 15:43] VITALS: BP 121/83
[2017-10-18 20:01] VITALS: BP 138/94
[2017-10-18 23:13] VITALS: BP 114/74
[2017-10-19] MEDS: KETOROLAC 30 MG/ML VIAL IVP SCH ×4 (00:17→18:07)
[2017-10-19] MEDS: HYDROmorphone PCA 6 MG/30 ML IV PRN ×2 (00:30→17:01)
[2017-10-19] MEDS: ZOLPIDEM TARTRATE 10 MG TAB PO PRN (01:26)
[2017-10-19 02:39] VITALS: BP 140/83
[2017-10-19] MEDS: IMIPENEM/CILASTA(*) 500MG VIAL 500 MG in NS(*) 0.9% 100 ML BAG 100 ML IVPB SCH ×4 (02:41→20:33)
[2017-10-19] MEDS: ACETAMINOPHEN(*)1000 MG/100 ML 100 ML IVPB SCH ×4 (04:18→22:32)
[2017-10-19 05:47] LABS: PLATELET COUNT, AUTOMATED 315 K/uL (150-450)
[2017-10-19] MEDS: KCL/D1/2NS 20 MEQ 1000 ML 1,000 ML IV SCH (07:20)
--- NOTE | 2017-10-19 07:24 | General Surgery Progress Note ---
Subjective Progress Notes Subjective No complaints. Pain well controlled. Appetite increasing. He's heard grumbling from his stoma. Physical Exam Vital Signs Date Time Temp Pulse Resp B/P (MAP) Pulse Ox O2 Delivery O2 Flow Rate FiO2 10/19/17 06:15 14 91 10/19/17 02:39 98.4 87 140/83 (102) Nasal Cannula 1.5 General Appearance: Alert, Awake, No Acute Distress, Afebrile GI: Other (Soft, appropriate postop TTP, Prevena vac dressing in place with good seal. Stoma is edematous but pink and there's gas in the bag.) Result Diagram: 10/19/17 0531 10/19/17 0531 Assessment and Plan Problems: (1) Diverticulitis of large intestine with abscess Status: Acute Assessment & Plan: 10/15/17: Admit, NPO, IV fluids, IV abx, to OR for laparoscopic exploration with surgical drainage of the abscess, possible sigmoid colectomy if sigmoid colon is still emitting stool, will plan on colostomy if colectomy is necessary. I have explained the CT results and the reason for surgery to the patient in detail. I have described the surgery and possible permutations depending on intraoperative findings with him in great detail as well as alternatives, risks, and expected recovery. He indicates his understanding of this discussion and his questions have been answered. He would like to proceed with this plan including surgery. 10/16/17: POD#1 s/p ex-lap, sigmoid colectomy, small bowel resection, splenic flexure mobilization, colostomy. Will work on pain control by going up on COMMERCIAL CORRESPONDENT settings gradually until improved pain control achieved. He's on IV tylenol, will hold off on toradol for another day. Will keep an eye on stoma, may need to revise this in next day or two if continues to get darker c/w ischemia. Ambulate today, PT/OT, IS, pulmonary hygiene. Will keep bird in today, plan on removing tomorrow. 10/17/17: POD#2 and POD#1 from stoma revision due to ischemic colostomy. Doing well. Pain control better. Will remove bird, start toradol, ambulate, IS, pulmonary hygiene, await return of bowel function. 10/18/17: POD#3, POD#2. Doing well. Awaiting return of bowel function. Continue mobilization, ambulation, IS pulmonary hygiene. 10/19/17: POD#4, 3. Doing well. Bowel function returning. Will start clear diet today. Start stoma education today. Continue mobilization, ambulation, IS , pulmonary hygiene, lovenox. Condition Stable. Time Spent: < 30 min Exam Sepsis Risk: No Definite Risk Problem Qualifiers (1) Diverticulitis of large intestine with abscess: Diverticulitis bleeding: without bleeding Qualified Codes: K57.20 - Diverticulitis of large intestine with perforation and abscess without bleeding ROE CERVANTES MD October 19, 2017 07:24
[2017-10-19 09:32] VITALS: BP 119/78
[2017-10-19] MEDS: ENOXAPARIN 40 MG/0.4ML SYR SC SCH (09:36)
[2017-10-19] MEDS: PANTOPRAZOLE SOD 40 MG IV VIAL IVP SCH (09:36)
[2017-10-19 12:03] VITALS: BP 128/83
--- NOTE | 2017-10-19 12:29 | Medical Nutrition Therapy ---
Nutrition Anthropometrics Height (Inches): 74.00 Height (Calculated Centimeters: 187.996174 Weight (Pounds): 243 Weight (Calculated Kilograms): 110.450 BMI Calculated: 31.20 Saulo Nutrition Score: Probably Inadequate Saulo Nutrition Risk Score: 17 Dietary Referral Nutrition Risk Factors: Recent Nutrition Impact Nutrition Risk Comment: Physical Findings Physical Appearance: Obese BMI 30-39 Skin Appearance Skin Appearance: Edema Edema Location Modifier: Edema Location: Type of Edema: Degree of Edema: Gastrointestinal Symptoms GI Symtoms: Nausea, Change in Bowel Pattern Tube Present: Bowel Sounds: Recent Bowel Pattern: Diarrhea, Colostomy Stool Characteristics: Nutritional Diagnosis Nutritional Risk Acuity 2: New Colostomy Past Medical History: Pt hx perforated diverticulum, diverticulitis of large intestine with abscess. Nutritional Acuity: 2-Moderate Nutrition Diagnosis: Increased Nutrient Needs Nutrition Etiology: Physiological Causes Nutrition Problem/Etiology/Sym: Increased Nutrient Needs related to new colostomy and diarrhea AEB low K+ 3.4. Adjusted Energy Requirement Re: 2514 (Law [place] Adj REE X 1.3) Protein Requirement: 88 (Actual BW kg X 0.8) Fluid Requirement: 2514 Diet Type: Clear Liquids Nutrition Intervention: Encourage intake, Change diet, Incr diet as tolerated Nutrition Monitoring & Eval RD Patient Assessment Time: [address] Assessment Type: RD Assessment Patient Nutrition Acuity: 2-Moderate Follow Up Date: October 21, 2017 Nutritional Comment: (10/16): Pt was admitted for diverticulitis with abscess and abdominla pain pain. Pt recieved conservative therapy and responded well.(10/15) Pt still continues to experince pain postop.Pt diet order NPO with no intakes recorded.Pt has an elevated random blood glucose of 114, low creatinine 0.60, and low calcium of 6.2. Monitor pt progress, plan and diet advancement. Provide nutrition education when approperiate. -MT 10/17 NPO with ice chips. High WBC, Low Ca+. Follow for diet change. - DRT 10/18 Continues NPO with ice chips at POD #3/#2. Waiting for bowel function to return. WBC now in normal range, Low Ca+. Follow labs, diet change, etc. - DRT 10/19 POD#4, 3. Doing well. Bowel function returning. Diet switched from NPO to clearn liquid diet this morning at 7:22AM. WBC remain in nromal range, however Ca+ still remains low 8.0. Low Na 3.4 and low random blood glucose 78. Continue to monitor Ca+, Na and blood glucose. Encourage intake and pt progress to advance REG diet. -BUNNY DAMON October 19, 2017 12:29
[2017-10-19 19:27] VITALS: BP 125/88
[2017-10-19] MEDS: diphenhydrAMINE 50 MG/ML VIAL IVP PRN (21:24)
[2017-10-20] MEDS: KETOROLAC 30 MG/ML VIAL IVP SCH ×4 (00:06→18:19)
[2017-10-20 00:09] VITALS: BP 140/92
[2017-10-20] MEDS: ZOLPIDEM TARTRATE 10 MG TAB PO PRN (01:41)
[2017-10-20] MEDS: HYDROmorphone PCA 6 MG/30 ML IV PRN ×2 (02:02→16:15)
[2017-10-20] MEDS: KCL/D1/2NS 20 MEQ 1000 ML 1,000 ML IV SCH ×2 (02:02→21:51)
[2017-10-20] MEDS: IMIPENEM/CILASTA(*) 500MG VIAL 500 MG in NS(*) 0.9% 100 ML BAG 100 ML IVPB SCH ×4 (02:30→21:08)
[2017-10-20 02:34] VITALS: BP 130/80
[2017-10-20] MEDS: ACETAMINOPHEN(*)1000 MG/100 ML 100 ML IVPB SCH ×4 (04:21→22:24)
[2017-10-20] MEDS: diphenhydrAMINE 50 MG/ML VIAL IVP PRN ×3 (04:26→21:49)
[2017-10-20 05:54] LABS: PLATELET COUNT, AUTOMATED 338 K/uL (150-450)
--- NOTE | 2017-10-20 08:41 | General Surgery Progress Note ---
Subjective Progress Notes Subjective No complaints. Appetite returning but not great yet. Pain well controlled. Physical Exam Vital Signs Date Time Temp Pulse Resp B/P (MAP) Pulse Ox O2 Delivery O2 Flow Rate FiO2 10/20/17 06:07 16 95 10/20/17 02:34 98.6 84 130/80 (97) Nasal Cannula 2.0 General Appearance: Alert, Awake, No Acute Distress, Afebrile GI: Other (Soft, appropriate postop TTP, prevena vac dressing is in place with good seal. Stoma is pink but very edematous. Gas and liquid in bag, no stool.) Result Diagram: 10/20/17 0540 10/20/17 0540 Assessment and Plan Problems: (1) Diverticulitis of large intestine with abscess Status: Acute Assessment & Plan: 10/15/17: Admit, NPO, IV fluids, IV abx, to OR for laparoscopic exploration with surgical drainage of the abscess, possible sigmoid colectomy if sigmoid colon is still emitting stool, will plan on colostomy if colectomy is necessary. I have explained the CT results and the reason for surgery to the patient in detail. I have described the surgery and possible permutations depending on intraoperative findings with him in great detail as well as alternatives, risks, and expected recovery. He indicates his understanding of this discussion and his questions have been answered. He would like to proceed with this plan including surgery. 10/16/17: POD#1 s/p ex-lap, sigmoid colectomy, small bowel resection, splenic flexure mobilization, colostomy. Will work on pain control by going up on NEWS PRODUCTION ASSISTANT settings gradually until improved pain control achieved. He's on IV tylenol, will hold off on toradol for another day. Will keep an eye on stoma, may need to revise this in next day or two if continues to get darker c/w ischemia. Ambulate today, PT/OT, IS, pulmonary hygiene. Will keep bird in today, plan on removing tomorrow. 10/17/17: POD#2 and POD#1 from stoma revision due to ischemic colostomy. Doing well. Pain control better. Will remove bird, start toradol, ambulate, IS, pulmonary hygiene, await return of bowel function. 10/18/17: POD#3, POD#2. Doing well. Awaiting return of bowel function. Continue mobilization, ambulation, IS pulmonary hygiene. 10/19/17: POD#4, 3. Doing well. Bowel function returning. Will start clear diet today. Start stoma education today. Continue mobilization, ambulation, IS , pulmonary hygiene, lovenox. 10/20/17: POD#5, 3. Doing well. Bowel function returning, still no stool. Tolerating clears but not eating much. Will continue clear diet today. Continue stoma education, mobilization, ambulation, IS, pulmonary hygiene, lovenox. Condition Stable. Time Spent: < 30 min Exam Sepsis Risk: No Definite Risk Problem Qualifiers (1) Diverticulitis of large intestine with abscess: Diverticulitis bleeding: without bleeding Qualified Codes: K57.20 - Diverticulitis of large intestine with perforation and abscess without bleeding REO CERVANTES MD October 20, 2017 08:41
[2017-10-20 08:53] VITALS: BP 114/65
[2017-10-20] MEDS: PANTOPRAZOLE SOD 40 MG IV VIAL IVP SCH (09:07)
[2017-10-20] MEDS: ENOXAPARIN 40 MG/0.4ML SYR SC SCH (09:07)
[2017-10-20 12:06] VITALS: BP 140/85
[2017-10-20 15:36] VITALS: BP 150/95
[2017-10-20 19:21] VITALS: BP 151/91
[2017-10-20] MEDS: PROMETHAZINE 25 MG/ML 1 ML AMP IVP PRN (19:22)
[2017-10-21] MEDS: KETOROLAC 30 MG/ML VIAL IVP SCH ×3 (00:26→13:07)
[2017-10-21 00:39] VITALS: BP 135/86
[2017-10-21] MEDS: ZOLPIDEM TARTRATE 10 MG TAB PO PRN (01:39)
[2017-10-21] MEDS: IMIPENEM/CILASTA(*) 500MG VIAL 500 MG in NS(*) 0.9% 100 ML BAG 100 ML IVPB SCH ×3 (02:44→14:28)
[2017-10-21] MEDS: ACETAMINOPHEN(*)1000 MG/100 ML 100 ML IVPB SCH ×3 (04:31→16:00)
[2017-10-21 05:01] VITALS: BP 129/81
[2017-10-21] MEDS: PROMETHAZINE 25 MG/ML 1 ML AMP IVP PRN ×2 (05:09→20:04)
[2017-10-21 06:46] LABS: PLATELET COUNT, AUTOMATED 380 K/uL (150-450)
[2017-10-21] MEDS: HYDROmorphone PCA 6 MG/30 ML IV PRN (07:36)
--- NOTE | 2017-10-21 08:05 | General Surgery Progress Note ---
Subjective Progress Notes Subjective Passing increasing gas and flatus from stoma. Pain well controlled. No N/V or bloating. Tolerating clear diet. Physical Exam Vital Signs Date Time Temp Pulse Resp B/P (MAP) Pulse Ox O2 Delivery O2 Flow Rate FiO2 10/21/17 07:37 16 94 10/21/17 05:01 98.3 71 129/81 (97) Nasal Cannula 1.5 Result Diagram: 10/21/17 0540 10/21/17 0540 Assessment and Plan Problems: (1) Diverticulitis of large intestine with abscess Status: Acute Assessment & Plan: 10/15/17: Admit, NPO, IV fluids, IV abx, to OR for laparoscopic exploration with surgical drainage of the abscess, possible sigmoid colectomy if sigmoid colon is still emitting stool, will plan on colostomy if colectomy is necessary. I have explained the CT results and the reason for surgery to the patient in detail. I have described the surgery and possible permutations depending on intraoperative findings with him in great detail as well as alternatives, risks, and expected recovery. He indicates his understanding of this discussion and his questions have been answered. He would like to proceed with this plan including surgery. 10/16/17: POD#1 s/p ex-lap, sigmoid colectomy, small bowel resection, splenic flexure mobilization, colostomy. Will work on pain control by going up on FAMILY ASSISTANT settings gradually until improved pain control achieved. He's on IV tylenol, will hold off on toradol for another day. Will keep an eye on stoma, may need to revise this in next day or two if continues to get darker c/w ischemia. Ambulate today, PT/OT, IS, pulmonary hygiene. Will keep bird in today, plan on removing tomorrow. 10/17/17: POD#2 and POD#1 from stoma revision due to ischemic colostomy. Doing well. Pain control better. Will remove bird, start toradol, ambulate, IS, pulmonary hygiene, await return of bowel function. 10/18/17: POD#3, POD#2. Doing well. Awaiting return of bowel function. Continue mobilization, ambulation, IS pulmonary hygiene. 10/19/17: POD#4, 3. Doing well. Bowel function returning. Will start clear diet today. Start stoma education today. Continue mobilization, ambulation, IS , pulmonary hygiene, lovenox. 10/20/17: POD#5, 3. Doing well. Bowel function returning, still no stool. Tolerating clears but not eating much. Will continue clear diet today. Continue stoma education, mobilization, ambulation, IS, pulmonary hygiene, lovenox. 10/21/17: POD#6, 5. Doing well. Will try regular diet today. Continue stoma education. Condition Stable. Time Spent: < 30 min Exam Sepsis Risk: No Definite Risk Problem Qualifiers (1) Diverticulitis of large intestine with abscess: Diverticulitis bleeding: without bleeding Qualified Codes: K57.20 - Diverticulitis of large intestine with perforation and abscess without bleeding ROE CERVANTES MD October 21, 2017 08:05
[2017-10-21 08:21] VITALS: BP 125/60
[2017-10-21] MEDS: ENOXAPARIN 40 MG/0.4ML SYR SC SCH (08:59)
[2017-10-21] MEDS: PANTOPRAZOLE SOD 40 MG IV VIAL IVP SCH (08:59)
[2017-10-21 13:08] VITALS: BP 147/94
--- NOTE | 2017-10-21 14:35 | Medical Nutrition Therapy ---
Nutrition Anthropometrics Height (Inches): 74.00 Height (Calculated Centimeters: 187.210138 Weight (Pounds): 243 Weight (Calculated Kilograms): 110.450 BMI Calculated: 31.20 Saulo Nutrition Score: Probably Inadequate Saulo Nutrition Risk Score: 17 Dietary Referral Nutrition Risk Factors: Recent Nutrition Impact Nutrition Risk Comment: Physical Findings Physical Appearance: Obese BMI 30-39 Skin Appearance Skin Appearance: Edema Edema Location Modifier: Edema Location: Type of Edema: Degree of Edema: Gastrointestinal Symptoms GI Symtoms: Nausea, Appetite Changes, Change in Bowel Pattern Tube Present: Bowel Sounds: Recent Bowel Pattern: Diarrhea, Colostomy Stool Characteristics: Nutritional Diagnosis Nutritional Risk Acuity 2: New Colostomy Past Medical History: Pt hx perforated diverticulum, diverticulitis of large intestine with abscess. Nutritional Acuity: 2-Moderate Nutrition Diagnosis: Increased Nutrient Needs Nutrition Etiology: Physiological Causes Nutrition Problem/Etiology/Sym: Increased energy needs r/t new colostomy and diarrhea as evidenced by results of low Na of 136. Adjusted Energy Requirement Re: 2514 ([place] Adj REE X 1.3) Protein Requirement: 88 (Actual BW kg X 0.8) Fluid Requirement: 2514 Diet Type: Clear Liquids Nutrition Intervention: Cont diet as ordered, Encourage intake, Incr diet as tolerated Nutrition Monitoring & Eval Nutrition Goals: Eat 50-100% Meal RD Patient Assessment Time: [address] Assessment Type: RD Re-Assessment Patient Nutrition Acuity: 2-Moderate Follow Up Date: October 23, 2017 Nutritional Comment: (10/16): Pt was admitted for diverticulitis with abscess and abdominla pain pain. Pt recieved conservative therapy and responded well.(10/15) Pt still continues to experince pain postop.Pt diet order NPO with no intakes recorded.Pt has an elevated random blood glucose of 114, low creatinine 0.60, and low calcium of 6.2. Monitor pt progress, plan and diet advancement. Provide nutrition education when approperiate. -MT 10/17 NPO with ice chips. High WBC, Low Ca+. Follow for diet change. - DRT 10/18 Continues NPO with ice chips at POD #3/#2. Waiting for bowel function to return. WBC now in normal range, Low Ca+. Follow labs, diet change, etc. - DRT 10/19 POD#4, 3. Doing well. Bowel function returning. Diet switched from NPO to clearn liquid diet this morning at 7:22AM. WBC remain in nromal range, however Ca+ still remains low 8.0. Low Na 3.4 and low random blood glucose 78. Continue to monitor Ca+, Na and blood glucose. Encourage intake and pt progress to advance REG diet. -CO 10/21: This morning pt has advanced from clear liquid diet to NISA/REG, however pt still continues to have a poor appetite and drinking minimal fluids. Only 250 ml of fluids have been documented. Pt has brown liquid stools, and experincing. Pt continues to have low Na 136, Hbg 9.6, hct 27.9, low BUN 3 and low creatinine .5. Continue to montior pt progress and lab values. -CO MARCBUNNY October 21, 2017 09:32
[2017-10-21] MEDS: KCL/D1/2NS 20 MEQ 1000 ML 1,000 ML IV SCH (15:00)
[2017-10-21 18:03] VITALS: BP 128/72
--- NOTE | 2017-10-21 18:21 | EKG ---
FACILITY: [facility] PATIENT NAME: JAMISON MOSQUEDA : [id number] MR: [id number] V: [id number] EXAM DATE: ORDERING PHYSICIAN: ROE CERVANTES TECHNOLOGIST: Phillip Johnson Reason : Blood Pressure : / mmHG Vent. Rate : 101 BPM Atrial Rate : 101 BPM P-R Int : 174 ms QRS Dur : 090 ms QT Int : 370 ms P-R-T Axes : 044 065 034 degrees QTc Int : 479 ms Sinus tachycardia Otherwise normal ECG No previous ECGs available Confirmed by ROE MCNAIR ([id number]) on 10/23/2017 11:21:33 AM Referred By: Confirmed By:ROE MCNAIR
--- NOTE | 2017-10-21 18:47 | Miscellaneous Provider Note ---
Miscellaneous Provider Note Note Called by nursing, pt was taking a shower when he developed sudden-onset lightheadedness, fatigue, and sweating. He was hooked up to a personnel monitor and found to be in SVT with HR in 160s. He has come back down to borderline sinus tachycardia in high 90s low 100s with vagal maneuvers. He has no complaints of abdominal pain. No chest pain, no SOB. He reports even before his diverticulitis that he occasionally would have lightheadedness during showers for years but not this bad. He's never been evaluated for this. I have evaluated him and his abdomen is soft with minimal postop TTP, incision looks good without erythema or drainage, stoma is pink. He is reporting that he 's feeling a little better but still fatigued. EKG completed, reveals sinus tach at HR 101, pCXR completed, I don't see any acute cardiopulmonary finding ( radiology reading is pending), troponin I is <0.0012. Electrolytes were mostly normal and those that were abnormal were only mildly abnormal. Blood sugar is 120. He has been placed on continuous cardiac monitoring. I have consulted Dr. George with Hospitalist Service and am awaiting his recommendations. REO CERVANTES MD October 21, 2017 18:47
--- NOTE | 2017-10-21 19:52 | RADIOLOGY IMAGING REPORT ---
FACILITY: [facility] [place] PATIENT NAME: Dillon Kramer : 1975 MR: [id number] V: [id number] EXAM DATE: ORDERING PHYSICIAN: ROE CERVANTES TECHNOLOGIST: Location: [facility] [place] Patient: Dillon Kramer : 1975 Visit/Account:[id number] Date of Sevice: 10/21/2017 CHEST SINGLE AP Indication: Tachycardia.. Comparison: None available Findings: Cardiomediastinal silhouette and pulmonary vessels within normal limits. There is no focal infiltrate or lobar consolidation. No pneumothorax or pleural effusion. Mild scarring seen in both lower lobe. No nodule. Upper abdomen is unremarkable. No acute bony abnor mality. IMPRESSION: 1. No acute cardiopulmonary process. Report Dictated By: Walter Benz at 10/21/2017 7:47 PM Report E-Signed By: Walter Benz at 10/21/2017 7:48 PM WSN:[id number]
[2017-10-21] MEDS: NICOTINE 14 MG/24 HR PATCH TD SCH (20:03)
[2017-10-21] MEDS ORDERED: ALPRAZolam 0.5 MG TAB PO SCH (21:00)
[2017-10-21 22:56] VITALS: BP 132/91
--- NOTE | 2017-10-21 23:35 | Hospitalist Consultation ---
History of Present Illness Requesting Physician Bravo Law MD Reason for Consult Tachyarrhythmias Chief Complaint Dyspnea and palpitations History of Present Illness 10/15: Mr. Kramer is a 41 y.o male, d/griselda from [facility] Med/Surg 4 days ago after being treated conservatively for perforated diverticulitis with an abscess. He responded well to conservatively therapy and was feeling well on discharge but he has had persistent nausea, possibly due to metronidazole. We obtained a repeat CT scan this morning to reassess the diverticulitis and abscess for interval change and the abscess is bigger. For this reason, he is being admitted and consented for surgical abscess drainage. 10/21: He underwent surgical procedure, colectomy and colostomy by Dr. Cervantes. Patient tolerated the procedure and was receiving antibiotics for abscess, Lovenox for DVTP and Toradol for pain. He denies any family h/o CAD, arrhythmias , sudden cardiac . He also does not have significant heart history. He chew tobacco and during the hospital course he became anxious and developed SVT with HR 160's. Episode started after he took hot shower.He denies any CAD, WPW syndrome, no recent use of high dose caffeine etc. I was asked to evaluate this patient for his tachyarrhythmia. I reviewed his EKG and electrolytes. HE denies any CP, SOB, nausea etc History Home Meds Active Scripts Ondansetron (ZOFRAN ODT) 4 Mg Tab.rapdis, 4 MG PO Q12H Y for NAUSEA, #10 TAB.PINKY Prov:ZAYDA ABEL MD 10/11/17 Metronidazole (METRONIDAZOLE) 500 Mg Tablet, 500 MG PO QID for 10 Days, #40 TAB Prov:ZAYDA ABEL MD 10/11/17 Hydrocodone Bit/Acetaminophen (HYDROCODON-ACETAMINOPHEN 5-325) 1 Each Tablet, 1 EACH PO Q4H Y for PAIN for 5 Days, #20 TAB Prov:ZAYDA ABEL MD 10/11/17 Amoxicillin/Potassium Clav (AMOX TR-K CLV 875-125 MG TAB) 1 Each Tablet, 875 MG PO BIDBS for 10 Days, #20 TAB Prov:ZAYDA ABEL MD 10/11/17 Allergies: Coded Allergies: No Known Drug Allergies (Unverified , 10/05/17) Patient History: Patient reports no known family medical history. Hx Smoking: No Smoking Status: Never Smoker Caffeine Intake: Soda Caffeine/Cups Per Day: 1 Hx Alcohol Use: No Hx Substance Use Disorder: No Social Drug Use: Never History of IV Drug Use: No Review of Systems Constitutional: No Fever, No Weight Loss, No Weight Gain, No Chills Neurological: No Confusion, No Weakness, No Dizziness Cardiovascular: Palpitations, No Chest Pain Respiratory: Shortness of Breath, No Cough, No Wheezing Gastrointestinal: No Nausea, No Vomiting, No Diarrhea, No Dysphagia, No Constipation, No Abdominal Pain Genitourinary: No Dysuria, No Hematuria Musculoskeletal: No Pain, No Sprain, No Strain, No Impaired Mobility, No Other Psychiatric: Anxiety, No Depression Exam Vital Signs Vital Signs Date Time Temp Pulse Resp B/P (MAP) Pulse Ox O2 Delivery O2 Flow Rate FiO2 10/21/17 22:56 81 14 132/91 (105) 98 Nasal Cannula 4.5 10/21/17 13:08 97.4 General Appearance: Alert, Awake, No Acute Distress, Afebrile Neuro: No Gross deficits Eyes: PERRLA ENT: Normal Neck: No Masses Cardiovascular: Normal Rhythm & Peripheral Pulses, No Edema Respiratory: No Respiratory Distress GI: Abd Soft and Non-Tender : Normal Musculoskeletal: No Weakness/Pain Extremities: Soft and Non Tender Integumentary: Skin Intact without Lesion / Mass Psych: Alert & Oriented X3, Appropriate Mood & Affect Medical Decision Making Data Points Result Diagram: 10/21/17 0540 10/21/17 0540 EKG / Imaging Monitor Interpretation: Sinus Tachycardia Pre-Admit Course Medical Record Review: Yes Assessment and Plan Problems: (1) Tachyarrhythmia Status: Acute Assessment & Plan: The patient has been anxious and sleep deprived. He also chew tobacco and he did not get nicotine patch in the hospital and that could lead to tachyarrhythmias. He is also anemic with blood loss and due to infection. He also has been having liquid stool and possibly intravascularly volume depleted. His 12 Lead EKG did not show any sign of ST-T changes or WPW syndrome and short AR interval. EKG showed sinus tachycardia and responded to the vagal maneuver. I discussed the case with Dr. Cervantes and plan to stop his antibiotics, NSAID, Lovenox and repeat CBC, BMP, TSH in am We also plan to start Nicotine patch and Xanax 0.5mg po at HS We will place the patient on gambling monitor and get Echo in am (2) Diverticulitis of large intestine with abscess Status: Acute Assessment & Plan: Management as per surgery. SCD's for DVTP Time Spent on Plan of Care: < 30 min Copies to: ROE CERVANTES MD Venous Thromboembolism VTE Risk Physician Assess for VTE Risk: Yes Patient's VTE Risk: Low VTE Diagnostic Test 2 Days Prior to Admit: No Antithrombotics Is Pt On Any Antithrombotics?: No Exam Sepsis Risk: No Definite Risk Problem Qualifiers (1) Diverticulitis of large intestine with abscess: Diverticulitis bleeding: without bleeding Qualified Codes: K57.20 - Diverticulitis of large intestine with perforation and abscess without bleeding HUNTER MAYBERRY MD October 21, 2017 23:35
[2017-10-22] VITALS (7 sets, daily range): BP systolic 109–143; BP diastolic 65–96
[2017-10-22] MEDS: HYDROmorphone PCA 6 MG/30 ML IV PRN ×2 (05:03→21:44)
--- NOTE | 2017-10-22 07:29 | General Surgery Progress Note ---
Subjective Progress Notes Subjective Feeling better this morning. Improved appetite. Abdominal pain controlled. Short runs of SVT early in the night but nothing further overnight. Physical Exam Vital Signs Date Time Temp Pulse Resp B/P (MAP) Pulse Ox O2 Delivery O2 Flow Rate FiO2 10/22/17 05:06 16 94 10/22/17 05:03 98.7 70 130/82 (98) Nasal Cannula 1.5 General Appearance: Alert, Awake, No Acute Distress, Afebrile GI: Other (Soft, appropriate postop TTP, midline incision looks good, no erythema or drainage. SToma is pink, gas and liquid in bag.) Extremities: Warm, Perfused Result Diagram: 10/21/17 0540 10/21/17 0540 Monitor Interpretation: Sinus Tachycardia Assessment and Plan Problems: (1) Diverticulitis of large intestine with abscess Status: Acute Assessment & Plan: 10/15/17: Admit, NPO, IV fluids, IV abx, to OR for laparoscopic exploration with surgical drainage of the abscess, possible sigmoid colectomy if sigmoid colon is still emitting stool, will plan on colostomy if colectomy is necessary. I have explained the CT results and the reason for surgery to the patient in detail. I have described the surgery and possible permutations depending on intraoperative findings with him in great detail as well as alternatives, risks, and expected recovery. He indicates his understanding of this discussion and his questions have been answered. He would like to proceed with this plan including surgery. 10/16/17: POD#1 s/p ex-lap, sigmoid colectomy, small bowel resection, splenic flexure mobilization, colostomy. Will work on pain control by going up on TOUR AGENT settings gradually until improved pain control achieved. He's on IV tylenol, will hold off on toradol for another day. Will keep an eye on stoma, may need to revise this in next day or two if continues to get darker c/w ischemia. Ambulate today, PT/OT, IS, pulmonary hygiene. Will keep bird in today, plan on removing tomorrow. 10/17/17: POD#2 and POD#1 from stoma revision due to ischemic colostomy. Doing well. Pain control better. Will remove bird, start toradol, ambulate, IS, pulmonary hygiene, await return of bowel function. 10/18/17: POD#3, POD#2. Doing well. Awaiting return of bowel function. Continue mobilization, ambulation, IS pulmonary hygiene. 10/19/17: POD#4, 3. Doing well. Bowel function returning. Will start clear diet today. Start stoma education today. Continue mobilization, ambulation, IS , pulmonary hygiene, lovenox. 10/20/17: POD#5, 3. Doing well. Bowel function returning, still no stool. Tolerating clears but not eating much. Will continue clear diet today. Continue stoma education, mobilization, ambulation, IS, pulmonary hygiene, lovenox. 10/21/17: POD#6, 5. Doing well. Will try regular diet today. Continue stoma education. 10/22/17: POD#7,6. Doing better this morning. No further SVT or other arrhythmia overnight. Echocardiogram today. Troponins never bumped. Afebrile , VSS. Appetite better. Encourage PO intake today. Will convert meds to PO when tolerating PO diet. Condition Stable. Time Spent: < 30 min Exam Sepsis Risk: No Definite Risk Problem Qualifiers (1) Diverticulitis of large intestine with abscess: Diverticulitis bleeding: without bleeding Qualified Codes: K57.20 - Diverticulitis of large intestine with perforation and abscess without bleeding ROE CERVANTES MD October 22, 2017 07:29
[2017-10-22 08:37] LABS: PLATELET COUNT, AUTOMATED 401 K/uL (150-450)
[2017-10-22] MEDS: PANTOPRAZOLE SOD 40 MG TABEC PO SCH (08:44)
[2017-10-22] MEDS: NICOTINE 14 MG/24 HR PATCH TD SCH (08:47)
[2017-10-22] MEDS: KCL/D1/2NS 20 MEQ 1000 ML 1,000 ML IV SCH ×2 (10:37→23:06)
--- NOTE | 2017-10-22 11:17 | Hospitalist Progress Note ---
Subjective Progress Notes Subjective 10/15: Mr. Kramer is a 41 y.o male, d/griselda from [facility] Med/Surg 4 days ago after being treated conservatively for perforated diverticulitis with an abscess. He responded well to conservatively therapy and was feeling well on discharge but he has had persistent nausea, possibly due to metronidazole. We obtained a repeat CT scan this morning to reassess the diverticulitis and abscess for interval change and the abscess is bigger. For this reason, he is being admitted and consented for surgical abscess drainage. 10/21: He underwent surgical procedure, colectomy and colostomy by Dr. Santillan. Patient tolerated the procedure and was receiving antibiotics for abscess, Lovenox for DVTP and Toradol for pain. He denies any family h/o CAD, arrhythmias , sudden cardiac . He also does not have significant heart history. He chew tobacco and during the hospital course he became anxious and developed SVT with HR 160's. Episode started after he took hot shower.He denies any CAD, WPW syndrome, no recent use of high dose caffeine etc. I was asked to evaluate this patient for his tachyarrhythmia. I reviewed his EKG and electrolytes. HE denies any CP, SOB, nausea etc 10/22: Today patient is doing well. He slept well. His HR is in 60-70's and he is asymptomatic without CP and SOB. His Echo revealed LVEF 67% and no obvious abnormality on preliminary report. Patient Complains of: Neurological: No: Confusion, Weakness, Dizziness Cardiovascular: No: Chest Pain, Palpitations Respiratory: No: Cough, Congestion, Shortness of Breath Gastrointestinal: No Nausea, No Vomiting, No Flatus Genitourinary: No Dysuria, No Hematuria Musculoskeletal: No: Pain, Sprain, Strain, Impaired Mobility Physical Exam Vital Signs Date Time Temp Pulse Resp B/P (MAP) Pulse Ox O2 Delivery O2 Flow Rate FiO2 10/22/17 10:39 98.6 78 16 109/65 (80) 95 Nasal Cannula 1.5 General Appearance: Alert, Awake, No Acute Distress Neuro: No Gross deficits Eyes: PERRLA ENT: Normal Cardiovascular: Normal Rhythm & Peripheral Pulses, No Edema, No JVD Respiratory: No Respiratory Distress GI: Soft and Non-Tender Extremities: Soft and Non Tender Integumentary: Skin Intact without Lesion / Mass Psych: Alert & Oriented X3, Appropriate Mood & Affect Result Diagram: 5/10/18 0547 10/22/17 0547 Monitor Interpretation: Sinus Tachycardia Assessment and Plan Problems: (1) Tachyarrhythmia Status: Acute Assessment & Plan: The patient has been anxious and sleep deprived. He also chew tobacco and he did not get nicotine patch in the hospital and that could lead to tachyarrhythmias. He is also anemic with blood loss and due to infection. He also has been having liquid stool and possibly intravascularly volume depleted. His 12 Lead EKG did not show any sign of ST-T changes or WPW syndrome and short ND interval. EKG showed sinus tachycardia and responded to the vagal maneuver. I discussed the case with Dr. Santillan and plan to stop his antibiotics, NSAID, Lovenox and repeat CBC, BMP, TSH in am We also plan to start Nicotine patch and Xanax 0.5mg po at HS We will place the patient on groundwater monitoring technician and get Echo in am 10/22: I will continue his current management. Echo without any significant abnormality and LVEF is 67%. His tachyarrhythmia was likely due to his anxiety. (2) Diverticulitis of large intestine with abscess Status: Acute Assessment & Plan: Management as per surgery. SCD's for DVTP Time Spent on Plan of Care: < 30 min Exam Sepsis Risk: No Definite Risk Problem Qualifiers (1) Diverticulitis of large intestine with abscess: Diverticulitis bleeding: without bleeding Qualified Codes: K57.20 - Diverticulitis of large intestine with perforation and abscess without bleeding HUNTER MAYBERRY MD October 22, 2017 11:17
--- NOTE | 2017-10-22 17:07 | Medical Nutrition Therapy ---
Nutritional Education Nutrition Education Topic: Other (ostomy) Learning Readiness: Interested Teaching Methods: Discussion, Handout Teaching Recipient: Patient, Significant Other Nutrition Counseling: Provided MNT for colostomy. Nutrition Monitoring & Eval RD Patient Assessment Time: [address] Assessment Type: RD Education Patient Nutrition Acuity: 2-Moderate Follow Up Date: October 23, 2017 Nutritional Comment: (10/16): Pt was admitted for diverticulitis with abscess and abdominla pain pain. Pt recieved conservative therapy and responded well.(10/15) Pt still continues to experince pain postop.Pt diet order NPO with no intakes recorded.Pt has an elevated random blood glucose of 114, low creatinine 0.60, and low calcium of 6.2. Monitor pt progress, plan and diet advancement. Provide nutrition education when approperiate. -MT 10/17 NPO with ice chips. High WBC, Low Ca+. Follow for diet change. - DRT 10/18 Continues NPO with ice chips at POD #3/#2. Waiting for bowel function to return. WBC now in normal range, Low Ca+. Follow labs, diet change, etc. - DRT 10/19 POD#4, 3. Doing well. Bowel function returning. Diet switched from NPO to clearn liquid diet this morning at 7:22AM. WBC remain in nromal range, however Ca+ still remains low 8.0. Low Na 3.4 and low random blood glucose 78. Continue to monitor Ca+, Na and blood glucose. Encourage intake and pt progress to advance REG diet. -[place] 10/21: This morning pt has advanced from clear liquid diet to NISA/REG, however pt still continues to have a poor appetite and drinking minimal fluids. Only 250 ml of fluids have been documented. Pt has brown liquid stools, and experincing. Pt continues to have low Na 136, Hbg 9.6, hct 27.9, low BUN 3 and low creatinine .5. Continue to montior pt progress and lab values. -[place] RODRICK GRANADOS October 22, 2017 17:07
[2017-10-22] MEDS: ALPRAZolam 0.5 MG TAB PO SCH (23:05)
[2017-10-23 03:11] VITALS: BP 132/78
[2017-10-23 05:30] LABS: PLATELET COUNT, AUTOMATED 427 K/uL (150-450)
--- NOTE | 2017-10-23 07:04 | General Surgery Progress Note ---
Subjective Progress Notes Subjective No specific complaints. He's not sleeping well at night. Not much pain. Lots of gas in stoma bag. Physical Exam Vital Signs Date Time Temp Pulse Resp B/P (MAP) Pulse Ox O2 Delivery O2 Flow Rate FiO2 10/23/17 03:13 16 92 10/23/17 03:11 97.9 75 132/78 (96) Nasal Cannula 0.5 General Appearance: Alert, Awake, No Acute Distress, Afebrile GI: Other (Soft, appropriate postop TTP, incision looks good. Stoma is edematous but pink. Gas and liquid in bag.) Extremities: Warm, Perfused Result Diagram: 10/23/17 0516 10/23/17 0516 Monitor Interpretation: Sinus Tachycardia Assessment and Plan Problems: (1) Diverticulitis of large intestine with abscess Status: Acute Assessment & Plan: 10/15/17: Admit, NPO, IV fluids, IV abx, to OR for laparoscopic exploration with surgical drainage of the abscess, possible sigmoid colectomy if sigmoid colon is still emitting stool, will plan on colostomy if colectomy is necessary. I have explained the CT results and the reason for surgery to the patient in detail. I have described the surgery and possible permutations depending on intraoperative findings with him in great detail as well as alternatives, risks, and expected recovery. He indicates his understanding of this discussion and his questions have been answered. He would like to proceed with this plan including surgery. 10/16/17: POD#1 s/p ex-lap, sigmoid colectomy, small bowel resection, splenic flexure mobilization, colostomy. Will work on pain control by going up on OUTSOLE CEMENTER settings gradually until improved pain control achieved. He's on IV tylenol, will hold off on toradol for another day. Will keep an eye on stoma, may need to revise this in next day or two if continues to get darker c/w ischemia. Ambulate today, PT/OT, IS, pulmonary hygiene. Will keep bird in today, plan on removing tomorrow. 10/17/17: POD#2 and POD#1 from stoma revision due to ischemic colostomy. Doing well. Pain control better. Will remove bird, start toradol, ambulate, IS, pulmonary hygiene, await return of bowel function. 10/18/17: POD#3, POD#2. Doing well. Awaiting return of bowel function. Continue mobilization, ambulation, IS pulmonary hygiene. 10/19/17: POD#4, 3. Doing well. Bowel function returning. Will start clear diet today. Start stoma education today. Continue mobilization, ambulation, IS , pulmonary hygiene, lovenox. 10/20/17: POD#5, 3. Doing well. Bowel function returning, still no stool. Tolerating clears but not eating much. Will continue clear diet today. Continue stoma education, mobilization, ambulation, IS, pulmonary hygiene, lovenox. 10/21/17: POD#6, 5. Doing well. Will try regular diet today. Continue stoma education. 10/22/17: POD#7,6. Doing better this morning. No further SVT or other arrhythmia overnight. Echocardiogram today. Troponins never bumped. Afebrile , VSS. Appetite better. Encourage PO intake today. Will convert meds to PO when tolerating PO diet. 10/23/17: POD#8,7. Doing well but no solid/semi-solid stool in bag but plenty of gas and liquid. Will stop IV fluids and meds and convert to PO meds today. No further arrhythmias. Will work on getting him stoma supplies for home and consideration for home health nursing to help with stoma care for his first couple of weeks. Hopeful for d/c to home tomorrow. Condition Stable. Time Spent: < 30 min Exam Sepsis Risk: No Definite Risk Problem Qualifiers (1) Diverticulitis of large intestine with abscess: Diverticulitis bleeding: without bleeding Qualified Codes: K57.20 - Diverticulitis of large intestine with perforation and abscess without bleeding ROE CERVANTES MD October 23, 2017 07:04
[2017-10-23] MEDS: NICOTINE 14 MG/24 HR PATCH TD SCH (07:56)
[2017-10-23] MEDS: PANTOPRAZOLE SOD 40 MG TABEC PO SCH (07:56)
[2017-10-23 08:03] VITALS: BP 115/74
--- NOTE | 2017-10-23 10:09 | Medical Nutrition Therapy ---
Nutrition Anthropometrics Height (Inches): 74.00 Height (Calculated Centimeters: 187.416526 Weight (Pounds): 243 Weight (Calculated Kilograms): 110.450 BMI Calculated: 31.20 Saulo Nutrition Score: Adequate Saulo Nutrition Risk Score: 17 Dietary Referral Nutrition Risk Factors: Recent Nutrition Impact Nutrition Risk Comment: Physical Findings Physical Appearance: Obese BMI 30-39 Skin Appearance Skin Appearance: Edema Edema Location Modifier: Edema Location: Type of Edema: Degree of Edema: Gastrointestinal Symptoms GI Symtoms: Nausea Tube Present: Bowel Sounds: Recent Bowel Pattern: Diarrhea, Colostomy Stool Characteristics: Nutritional Diagnosis Nutritional Risk Acuity 2: New Colostomy Past Medical History: Pt hx perforated diverticulum, diverticulitis of large intestine with abscess. Nutritional Acuity: 2-Moderate Nutrition Diagnosis: Increased Nutrient Needs Nutrition Etiology: Physiological Causes Nutrition Problem/Etiology/Sym: Increased energy needs and fluid intake r/t new colostomy AEB low BUN 3. Adjusted Energy Requirement Re: 2514 ([place] Adj REE X 1.3) Protein Requirement: 88 (Actual BW kg X 0.8) Fluid Requirement: 2514 Diet Type: Diet as Tolerated NISA/REG Nutrition Intervention: Cont diet as ordered, Encourage intake Diet Comment To RSA: OFFER PROTEIN FORTIFIED MILK SHAKE OR NUTRTION SUPPLEMENT Nutritional Education Nutrition Education Topic: Other (Ostomy diet) Learning Readiness: Interested Teaching Methods: Discussion, Handout Response to Teaching: Verbalize understanding Teaching Recipient: Patient Nutrition Counseling: Nutrition education was done by JENNIFER Gill. Nutrition education was done by JENNIFER Gill. Bridget provided pt with written materials related to his new ostomy. Handouts included foods that are tolerable and foods that are not. Nutrition Monitoring & Eval Nutrition Goals: Eat 50-100% Meal RD Patient Assessment Time: [address] Assessment Type: RD Re-Assessment Patient Nutrition Acuity: 2-Moderate Follow Up Date: October 26, 2017 Nutritional Comment: (10/16): Pt was admitted for diverticulitis with abscess and abdominal pain pain. Pt recieved conservative therapy and responded well.(10/15) Pt still continues to experince pain postop.Pt diet order NPO with no intakes recorded.Pt has an elevated random blood glucose of 114, low creatinine 0.60, and low calcium of 6.2. Monitor pt progress, plan and diet advancement. Provide nutrition education when approperiate. -MT 10/17 NPO with ice chips. High WBC, Low Ca+. Follow for diet change. - DRT 10/18 Continues NPO with ice chips at POD #3/#2. Waiting for bowel function to return. WBC now in normal range, Low Ca+. Follow labs, diet change, etc. - DRT 10/19 POD#4, 3. Doing well. Bowel function returning. Diet switched from NPO to clear liquid diet this morning at 7:22AM. WBC remain in nromal range, however Ca+ still remains low 8.0. Low Na 3.4 and low random blood glucose 78. Continue to monitor Ca+, Na and blood glucose. Encourage intake and pt progress to advance REG diet. -MT 10/21: This morning pt has advanced from clear liquid diet to NISA/REG, however pt still continues to have a poor appetite and drinking minimal fluids. Only 250 ml of fluids have been documented. Pt has brown liquid stools, and experincing. Pt continues to have low Na 136, Hbg 9.6, hct 27.9, low BUN 3 and low creatinine .5. Continue to montior pt progress and lab values. -MT 10/22: Pt has advanced to from clearn liquids to NISA/REG. Pt has developed a better appetite, but eating smaller bites and more slowly. Pt started drinking protein fortified milk shakes and nutrition supplements, to help meet nutrtional needs. Pt ostomy bag continues to fill with liquids and gas, but no solid stools at this time. Pt has low BUN 3 and low creatinine .6. Pt K+ levels have finally stabalized. Pt did receive nutrition education on ostomy diet (10/22). Continue to monitor pt progress and encourage pt to continue to eat slow and drink fluids to help with gas. -GA TRAN,BUNNY October 23, 2017 09:46
--- NOTE | 2017-10-23 10:31 | Hospitalist Progress Note ---
Subjective Progress Notes Subjective This patient was admitted for diverticular abscess. He developed SVT the other night, but has been stable since. Patient Complains of: Cardiovascular: No: Chest Pain Respiratory: No: Shortness of Breath Physical Exam Vital Signs Date Time Temp Pulse Resp B/P (MAP) Pulse Ox O2 Delivery O2 Flow Rate FiO2 10/23/17 08:03 98.4 75 16 115/74 (88) 91 Nasal Cannula 0.5 Intake and Output 10/24/17 06:59 Intake Total 342 ml Balance 342 ml Intake Oral 342 ml Cardiovascular: Regular Rate and Rhythm Respiratory: Clear to Auscultation Result Diagram: 10/23/17 0516 10/23/17 0516 Monitor Interpretation: Sinus Tachycardia Assessment and Plan Problems: (1) Tachyarrhythmia Status: Acute Assessment & Plan: The patient has been anxious and sleep deprived. He also chew tobacco and he did not get nicotine patch in the hospital and that could lead to tachyarrhythmias. He is also anemic with blood loss and due to infection. He also has been having liquid stool and possibly intravascularly volume depleted. His 12 Lead EKG did not show any sign of ST-T changes or WPW syndrome and short MN interval. EKG showed sinus tachycardia and responded to the vagal maneuver. I discussed the case with Dr. Santillan and plan to stop his antibiotics, NSAID, Lovenox and repeat CBC, BMP, TSH in am We also plan to start Nicotine patch and Xanax 0.5mg po at HS We will place the patient on electrician third and get Echo in am 10/22: I will continue his current management. Echo without any significant abnormality and LVEF is 67%. His tachyarrhythmia was likely due to his anxiety. 10/23 - He has remained in sinus rhythm since his initial episode. We have discontinued telemetry and will reconsult if needed. (2) Diverticulitis of large intestine with abscess Status: Acute Assessment & Plan: Management as per surgery. SCD's for DVTP Exam Sepsis Risk: No Definite Risk Problem Qualifiers (1) Diverticulitis of large intestine with abscess: Diverticulitis bleeding: without bleeding Qualified Codes: K57.20 - Diverticulitis of large intestine with perforation and abscess without bleeding ROE MCNAIR DO October 23, 2017 10:31
[2017-10-23 11:15] VITALS: BP 112/80
[2017-10-23] MEDS ORDERED: DOCU-416 PO (14:55)
[2017-10-23] MEDS ORDERED: PER PO (14:55)
--- NOTE | 2017-10-23 15:00 | Short(Outpt) Discharge Summary ---
Discharge Summary Reason for Hosp/Final Diag: (1) Diverticulitis of large intestine with abscess Status: Acute Hospital Course & Plan: 10/15/17: Admit, NPO, IV fluids, IV abx, to OR for laparoscopic exploration with surgical drainage of the abscess, possible sigmoid colectomy if sigmoid colon is still emitting stool, will plan on colostomy if colectomy is necessary. I have explained the CT results and the reason for surgery to the patient in detail. I have described the surgery and possible permutations depending on intraoperative findings with him in great detail as well as alternatives, risks, and expected recovery. He indicates his understanding of this discussion and his questions have been answered. He would like to proceed with this plan including surgery. 10/16/17: POD#1 s/p ex-lap, sigmoid colectomy, small bowel resection, splenic flexure mobilization, colostomy. Will work on pain control by going up on PERIODICALS LIBRARY ASSISTANT settings gradually until improved pain control achieved. He's on IV tylenol, will hold off on toradol for another day. Will keep an eye on stoma, may need to revise this in next day or two if continues to get darker c/w ischemia. Ambulate today, PT/OT, IS, pulmonary hygiene. Will keep bird in today, plan on removing tomorrow. 10/17/17: POD#2 and POD#1 from stoma revision due to ischemic colostomy. Doing well. Pain control better. Will remove bird, start toradol, ambulate, IS, pulmonary hygiene, await return of bowel function. 10/18/17: POD#3, POD#2. Doing well. Awaiting return of bowel function. Continue mobilization, ambulation, IS pulmonary hygiene. 10/19/17: POD#4, 3. Doing well. Bowel function returning. Will start clear diet today. Start stoma education today. Continue mobilization, ambulation, IS , pulmonary hygiene, lovenox. 10/20/17: POD#5, 3. Doing well. Bowel function returning, still no stool. Tolerating clears but not eating much. Will continue clear diet today. Continue stoma education, mobilization, ambulation, IS, pulmonary hygiene, lovenox. 10/21/17: POD#6, 5. Doing well. Will try regular diet today. Continue stoma education. 10/22/17: POD#7,6. Doing better this morning. No further SVT or other arrhythmia overnight. Echocardiogram today. Troponins never bumped. Afebrile , VSS. Appetite better. Encourage PO intake today. Will convert meds to PO when tolerating PO diet. 10/23/17: POD#8,7. Doing well but no solid/semi-solid stool in bag but plenty of gas and liquid. Will stop IV fluids and meds and convert to PO meds today. No further arrhythmias. Will work on getting him stoma supplies for home and consideration for home health nursing to help with stoma care for his first couple of weeks. Hopeful for d/c to home tomorrow. Departure Discharge to: Home, Self Care Discharge Instructions Home Meds Active Scripts Docusate Sodium (COLACE) 100 Mg Capsule, 1 CAP PO BID, #30 CAP 0 Refills TAKE WITH A FULL GLASS OF WATER Prov:ROE SANTILLAN MD 10/23/17 Oxycodone/Acetaminophen (OXYCODONE/ACETAMINOPHEN 5MG/325 MG) 5 Mg/325 Mg Tab, 1- 2 TAB PO Q4H Y for PAIN, #30 TAB 0 Refills Prov:ROE SANTILLAN MD 10/23/17 Ondansetron (ZOFRAN ODT) 4 Mg Tab.rapdis, 4 MG PO Q12H Y for NAUSEA, #10 TAB.PINKY Prov:ZAYDA ABEL MD 10/11/17 Metronidazole (METRONIDAZOLE) 500 Mg Tablet, 500 MG PO QID for 10 Days, #40 TAB Prov:ZAYDA ABEL MD 10/11/17 Hydrocodone Bit/Acetaminophen (HYDROCODON-ACETAMINOPHEN 5-325) 1 Each Tablet, 1 EACH PO Q4H Y for PAIN for 5 Days, #20 TAB Prov:ZAYDA ABEL MD 10/11/17 Amoxicillin/Potassium Clav (AMOX TR-K CLV 875-125 MG TAB) 1 Each Tablet, 875 MG PO BIDBS for 10 Days, #20 TAB Prov:ZAYDA ABEL MD 10/11/17 Follow up Referrals: General Surgery - 10/30/17 @ Surgery, General with Roe Santillan Md You have a follow up appointment scheduled with Dr. Santillan on 10/30/17, at 9:00am. Diet: Regular Activity: No Heavy Lifting Special Instructions: You may shower as desired but don't immerse the incision for 2 weeks. Avoid any activity that involves straining or lifting more than 10 pounds for 6 weeks after surgery. I will remove your brendan when I see you in my office on 10/30/17, at 9:00am. Problem Qualifiers (1) Diverticulitis of large intestine with abscess: Diverticulitis bleeding: without bleeding Qualified Codes: K57.20 - Diverticulitis of large intestine with perforation and abscess without bleeding ROE SANTILLAN MD October 23, 2017 15:00
[2017-10-23] MEDS: ONDANSETRON 4 MG ODT TABDP SL PRN (15:11)
[2017-10-23 15:13] VITALS: BP 146/92
[2017-10-23 19:07] VITALS: BP 133/83
[2017-10-23] MEDS: ALPRAZolam 0.5 MG TAB PO SCH (22:49)
[2017-10-23 22:50] VITALS: BP 131/90
[2017-10-24 05:55] VITALS: BP 115/73
[2017-10-24 06:17] LABS: PLATELET COUNT, AUTOMATED 403 K/uL (150-450)
--- NOTE | 2017-10-24 08:08 | General Surgery Progress Note ---
Subjective Progress Notes Subjective Overall feels well. Ate a full breakfast, but did not tolerate as much at lunch or dinner. Denies feeling bloated, and still having a lot of gas from bag, but not much appetite. Pain controlled with oral medications. Patient Complains of: Gastrointestinal: Nausea (Mild, denies bloating) Physical Exam Vital Signs Date Time Temp Pulse Resp B/P (MAP) Pulse Ox O2 Delivery O2 Flow Rate FiO2 10/24/17 05:55 97.4 88 20 115/73 (87) 91 Nasal Cannula 0.5 General Appearance: Alert, Awake, No Acute Distress Neuro: No Gross deficits ENT: Moist Mucous Membranes Cardiovascular: Regular Rate and Rhythm Respiratory: Other (Nonlabored) GI: Other (soft, midline incision with brendan intact, no erythema or drainage ; stoma mildly congested, moist, edematous, liquid brown stool and gas in bag) Extremities: Warm, Perfused Integumentary: Skin Intact without Lesion / Mass Psych: Alert & Oriented X3, Appropriate Mood & Affect Result Diagram: 10/24/17 0553 10/24/17 0553 Monitor Interpretation: Sinus Tachycardia Assessment and Plan Problems: (1) Diverticulitis of large intestine with abscess Status: Acute Assessment & Plan: 10/15/17: Admit, NPO, IV fluids, IV abx, to OR for laparoscopic exploration with surgical drainage of the abscess, possible sigmoid colectomy if sigmoid colon is still emitting stool, will plan on colostomy if colectomy is necessary. I have explained the CT results and the reason for surgery to the patient in detail. I have described the surgery and possible permutations depending on intraoperative findings with him in great detail as well as alternatives, risks, and expected recovery. He indicates his understanding of this discussion and his questions have been answered. He would like to proceed with this plan including surgery. 10/16/17: POD#1 s/p ex-lap, sigmoid colectomy, small bowel resection, splenic flexure mobilization, colostomy. Will work on pain control by going up on PLAYER MANAGER settings gradually until improved pain control achieved. He's on IV tylenol, will hold off on toradol for another day. Will keep an eye on stoma, may need to revise this in next day or two if continues to get darker c/w ischemia. Ambulate today, PT/OT, IS, pulmonary hygiene. Will keep bird in today, plan on removing tomorrow. 10/17/17: POD#2 and POD#1 from stoma revision due to ischemic colostomy. Doing well. Pain control better. Will remove bird, start toradol, ambulate, IS, pulmonary hygiene, await return of bowel function. 10/18/17: POD#3, POD#2. Doing well. Awaiting return of bowel function. Continue mobilization, ambulation, IS pulmonary hygiene. 10/19/17: POD#4, 3. Doing well. Bowel function returning. Will start clear diet today. Start stoma education today. Continue mobilization, ambulation, IS , pulmonary hygiene, lovenox. 10/20/17: POD#5, 3. Doing well. Bowel function returning, still no stool. Tolerating clears but not eating much. Will continue clear diet today. Continue stoma education, mobilization, ambulation, IS, pulmonary hygiene, lovenox. 10/21/17: POD#6, 5. Doing well. Will try regular diet today. Continue stoma education. 10/22/17: POD#7,6. Doing better this morning. No further SVT or other arrhythmia overnight. Echocardiogram today. Troponins never bumped. Afebrile , VSS. Appetite better. Encourage PO intake today. Will convert meds to PO when tolerating PO diet. 10/23/17: POD#8,7. Doing well but no solid/semi-solid stool in bag but plenty of gas and liquid. Will stop IV fluids and meds and convert to PO meds today. No further arrhythmias. Will work on getting him stoma supplies for home and consideration for home health nursing to help with stoma care for his first couple of weeks. Hopeful for d/c to home tomorrow. 10/24/17: POD#9,8. Decreased PO intake over afternoon yesterday. Good amount of gas from bag but minimal other output. Coordinated for ostomy care at home. Will have him change appliance today. Pending PO intake for breakfast and lunch , will determine discharge plan for today versus tomorrow. OOB TID. Time Spent: < 30 min Exam Sepsis Risk: No Definite Risk Problem Qualifiers (1) Diverticulitis of large intestine with abscess: Diverticulitis bleeding: without bleeding Qualified Codes: K57.20 - Diverticulitis of large intestine with perforation and abscess without bleeding JACQUE SIDDIQUI MD October 24, 2017 08:08
[2017-10-24] MEDS ORDERED: POLYETHYLENE GLYCOL 17 GM PKT PO ONE (08:10)
[2017-10-24 08:15] VITALS: BP 118/71
[2017-10-24] MEDS: ONDANSETRON 4 MG ODT TABDP SL PRN (08:44)
[2017-10-24] MEDS: PANTOPRAZOLE SOD 40 MG TABEC PO SCH (08:44)
[2017-10-24] MEDS: NICOTINE 14 MG/24 HR PATCH TD SCH (08:45)
[2017-10-24 12:33] VITALS: BP 126/79
--- NOTE | 2017-10-24 13:48 | Medical Nutrition Therapy ---
Nutrition Anthropometrics Height (Inches): 74.00 Height (Calculated Centimeters: 187.549931 Weight (Pounds): 243 Weight (Calculated Kilograms): 110.450 BMI Calculated: 31.20 Saulo Nutrition Score: Probably Inadequate Saulo Nutrition Risk Score: 19 Dietary Referral Nutrition Risk Factors: Recent Nutrition Impact Nutrition Risk Comment: Physical Findings Physical Appearance: Obese BMI 30-39 Skin Appearance Skin Appearance: Edema Edema Location Modifier: Edema Location: Type of Edema: Degree of Edema: Gastrointestinal Symptoms GI Symtoms: Nausea Tube Present: Bowel Sounds: Recent Bowel Pattern: Diarrhea, Colostomy Stool Characteristics: Nutritional Diagnosis Nutritional Risk Acuity 2: New Colostomy Past Medical History: Pt hx perforated diverticulum, diverticulitis of large intestine with abscess. Nutritional Acuity: 2-Moderate Nutrition Diagnosis: Increased Nutrient Needs Nutrition Etiology: Physiological Causes Nutrition Problem/Etiology/Sym: Increased energy needs and fluid intake r/t new colostomy AEB low BUN 3. Adjusted Energy Requirement Re: 2514 (Law [place] Adj REE X 1.3) Protein Requirement: 88 (Actual BW kg X 0.8) Fluid Requirement: 2514 Diet Type: Diet as Tolerated NISA/REG Nutrition Intervention: Cont diet as ordered, Encourage intake Diet Comment To RSA: OFFER PROTEIN FORTIFIED MILK SHAKE OR NUTRTION SUPPLEMENT Nutrition Monitoring & Eval RD Patient Assessment Time: [address] Assessment Type: RD Re-Assessment Patient Nutrition Acuity: 2-Moderate Follow Up Date: October 29, 2017 Nutritional Comment: (10/16): Pt was admitted for diverticulitis with abscess and abdominal pain pain. Pt recieved conservative therapy and responded well.(10/15) Pt still continues to experince pain postop.Pt diet order NPO with no intakes recorded.Pt has an elevated random blood glucose of 114, low creatinine 0.60, and low calcium of 6.2. Monitor pt progress, plan and diet advancement. Provide nutrition education when approperiate. -MT 10/17 NPO with ice chips. High WBC, Low Ca+. Follow for diet change. - DRT 10/18 Continues NPO with ice chips at POD #3/#2. Waiting for bowel function to return. WBC now in normal range, Low Ca+. Follow labs, diet change, etc. - DRT 10/19 POD#4, 3. Doing well. Bowel function returning. Diet switched from NPO to clear liquid diet this morning at 7:22AM. WBC remain in nromal range, however Ca+ still remains low 8.0. Low Na 3.4 and low random blood glucose 78. Continue to monitor Ca+, Na and blood glucose. Encourage intake and pt progress to advance REG diet. -MT 10/21: This morning pt has advanced from clear liquid diet to NISA/REG, however pt still continues to have a poor appetite and drinking minimal fluids. Only 250 ml of fluids have been documented. Pt has brown liquid stools, and experincing. Pt continues to have low Na 136, Hbg 9.6, hct 27.9, low BUN 3 and low creatinine .5. Continue to montior pt progress and lab values. -MT 10/22: Pt has advanced to from clearn liquids to NISA/REG. Pt has developed a better appetite, but eating smaller bites and more slowly. Pt started drinking protein fortified milk shakes and nutrition supplements, to help meet nutrtional needs. Pt ostomy bag continues to fill with liquids and gas, but no solid stools at this time. Pt has low BUN 3 and low creatinine .6. Pt K+ levels have finally stabalized. Pt did receive nutrition education on ostomy diet (10/22). Continue to monitor pt progress and encourage pt to continue to eat slow and drink fluids to help with gas. -MT 10/24 Pt intake improving and ate average of 75% of last few meals as NISA. Still low appetite. Notable labs include low H/H, BUN 8, creatinine .6 and glc 112. To go home today or tomorrow based on intake.-STEVEN ALVAREZ October 24, 2017 13:47
[2017-10-24 16:00] VITALS: BP 110/74
[2017-10-24 18:54] VITALS: BP 117/78
[2017-10-24 23:55] VITALS: BP 103/74
[2017-10-24] MEDS: ALPRAZolam 0.5 MG TAB PO SCH (23:55)
[2017-10-25] MEDS: ONDANSETRON 4 MG ODT TABDP SL PRN ×2 (00:04→08:04)
--- NOTE | 2017-10-25 07:47 | General Surgery Progress Note ---
Subjective Progress Notes Subjective Had a good day yesterday. Mild nausea with lunch but did not take any medications for it. Tolerated dinner well. Continues to have ostomy output, and now more solid, +lots of gas in bag. Changed appliance himself in entirety yesterday. Ambulating without assistance. Physical Exam Vital Signs Date Time Temp Pulse Resp B/P (MAP) Pulse Ox O2 Delivery O2 Flow Rate FiO2 10/25/17 02:05 85 10/24/17 23:55 98.0 82 12 103/74 (84) Nasal Cannula 1.0 General Appearance: Alert, Awake, No Acute Distress Neuro: No Gross deficits Eyes: PERRLA ENT: Moist Mucous Membranes Cardiovascular: Regular Rate and Rhythm GI: Soft and Non-Tender, Other (Midline incision with brendan intact, no erythema or drainage, stoma pink and moist with soft, brown stool in bag) Extremities: Soft and Non Tender, Pulses, Perfused Integumentary: Skin Intact without Lesion / Mass Psych: Alert & Oriented X3 Result Diagram: 10/24/17 0553 10/24/17 0553 Monitor Interpretation: Normal Sinus Rhythm Assessment and Plan Problems: (1) Diverticulitis of large intestine with abscess Status: Acute Assessment & Plan: 10/15/17: Admit, NPO, IV fluids, IV abx, to OR for laparoscopic exploration with surgical drainage of the abscess, possible sigmoid colectomy if sigmoid colon is still emitting stool, will plan on colostomy if colectomy is necessary. I have explained the CT results and the reason for surgery to the patient in detail. I have described the surgery and possible permutations depending on intraoperative findings with him in great detail as well as alternatives, risks, and expected recovery. He indicates his understanding of this discussion and his questions have been answered. He would like to proceed with this plan including surgery. 10/16/17: POD#1 s/p ex-lap, sigmoid colectomy, small bowel resection, splenic flexure mobilization, colostomy. Will work on pain control by going up on [employer] settings gradually until improved pain control achieved. He's on IV tylenol, will hold off on toradol for another day. Will keep an eye on stoma, may need to revise this in next day or two if continues to get darker c/w ischemia. Ambulate today, PT/OT, IS, pulmonary hygiene. Will keep bird in today, plan on removing tomorrow. 10/17/17: POD#2 and POD#1 from stoma revision due to ischemic colostomy. Doing well. Pain control better. Will remove bird, start toradol, ambulate, IS, pulmonary hygiene, await return of bowel function. 10/18/17: POD#3, POD#2. Doing well. Awaiting return of bowel function. Continue mobilization, ambulation, IS pulmonary hygiene. 10/19/17: POD#4, 3. Doing well. Bowel function returning. Will start clear diet today. Start stoma education today. Continue mobilization, ambulation, IS , pulmonary hygiene, lovenox. 10/20/17: POD#5, 3. Doing well. Bowel function returning, still no stool. Tolerating clears but not eating much. Will continue clear diet today. Continue stoma education, mobilization, ambulation, IS, pulmonary hygiene, lovenox. 10/21/17: POD#6, 5. Doing well. Will try regular diet today. Continue stoma education. 10/22/17: POD#7,6. Doing better this morning. No further SVT or other arrhythmia overnight. Echocardiogram today. Troponins never bumped. Afebrile , VSS. Appetite better. Encourage PO intake today. Will convert meds to PO when tolerating PO diet. 10/23/17: POD#8,7. Doing well but no solid/semi-solid stool in bag but plenty of gas and liquid. Will stop IV fluids and meds and convert to PO meds today. No further arrhythmias. Will work on getting him stoma supplies for home and consideration for home health nursing to help with stoma care for his first couple of weeks. Hopeful for d/c to home tomorrow. 10/24/17: POD#9,8. Decreased PO intake over afternoon yesterday. Good amount of gas from bag but minimal other output. Coordinated for ostomy care at home. Will have him change appliance today. Pending PO intake for breakfast and lunch , will determine discharge plan for today versus tomorrow. OOB TID. 10/25/17: POD#10,9. Feeling better, good day yesterday. Soft brown stool in bag this AM. Changed appliance independently. Will discharge home today. Time Spent: < 30 min Exam Sepsis Risk: No Definite Risk Problem Qualifiers (1) Diverticulitis of large intestine with abscess: Diverticulitis bleeding: without bleeding Qualified Codes: K57.20 - Diverticulitis of large intestine with perforation and abscess without bleeding JACQUE SIDDIQUI MD October 25, 2017 07:47
[2017-10-25 07:57] VITALS: BP 125/79
[2017-10-25] MEDS: NICOTINE 14 MG/24 HR PATCH TD SCH (09:30)
[2017-10-25] MEDS: PANTOPRAZOLE SOD 40 MG TABEC PO SCH (09:30)
[2017-10-25 12:04] VITALS: BP 127/83
--- NOTE | 2017-10-29 16:12 | RADIOLOGY IMAGING REPORT ---
FACILITY: [facility] [place] PATIENT NAME: JAMISON MOSQUEDA : [id number] MR: [id number] V: [id number] EXAM DATE: ORDERING PHYSICIAN: ROE CERVANTES TECHNOLOGIST: Jessica Varghese EXAMINATION:TWO-DIMENSIONAL ECHOCARDIOGRAPH REASON:ARRHYTHMIA 2D Measurements (normal values in centimeters) LV endLV endRV endVent.LV PostAorticLeftPercent DiastolicSystolicDiastolicSeptumWallRootAtriumShortening (3.5-5.7)(0.9-2.6)(0.6-1.1)(0.6-1.1)(2.0-3.7)(1.9-4.0)(25-35%) [id number]% STROKE VOLUME: 93.6ml ESTIMATED EJECTION FRACTION:67% RESULTS: 1. The left ventricle was normal in size with all segments tony adequately. LVEF was 65% 2. The left atrium was normal in size. 3. The right heart chambers were normal in size. 4. The aortic, mitral & tricuspid valves were normal in appearance. There was trivial mitral regurgitation. 5. No pericardial effusion was present/ OVERALL IMPRESSION: 1. This was a normal echocardiogram with no evidence of structural heart disease. Dictated by: Ramirez Bourgeois on 10/23/2017 at 15:32 Transcribed by: WAI on 10/23/2017 at 16:11 Approved by: Ramirez Bourgeois on 10/28/2017 at 14:53 [facility]
== END 2017-10-25 15:15 | disposition home health service (06) | DRG 330 ==
LOC: OR 14:43 → MED 20:20
PROVIDERS: ADMIT Surgery; ATTEND Surgery
PROC: 0DNM0ZZ Release Descending Colon, Open Approach (ICD-10-PCS; 2017-10-15)
PROC: 0DB80ZZ Excision of Small Intestine, Open Approach (ICD-10-PCS; 2017-10-15)
PROC: 0D1M0Z4 Bypass Descending Colon to Cutaneous, Open Approach (ICD-10-PCS; 2017-10-15)
PROC: 0DBM0ZZ Excision of Descending Colon, Open Approach (ICD-10-PCS; principal; 2017-10-15 14:28)
PROC: 0DBN0ZZ Excision of Sigmoid Colon, Open Approach (ICD-10-PCS; 2017-10-15 14:28)
PROC: 0DBM0ZZ Excision of Descending Colon, Open Approach (ICD-10-PCS; 2017-10-16)
DX: K57.20 Diverticulitis of large intestine with perforation and abscess without bleeding (principal); I47.1 Supraventricular tachycardia; K94.09 Other complications of colostomy; D50.0 Iron deficiency anemia secondary to blood loss (chronic); F17.220 Nicotine dependence, chewing tobacco, uncomplicated; E66.9 Obesity, unspecified; Y83.8 Other surgical procedures as the cause of abnormal reaction of the patient, or of later complication, without mention of misadventure at the time of the procedure; Y73.3 Surgical instruments, materials and gastroenterology and urology devices (including sutures) associated with adverse incidents; Y92.230 Patient room in hospital as the place of occurrence of the external cause; Z68.31 Body mass index [BMI] 31.0-31.9, adult
CPT/HCPCS: 36415; 36416; 71045; 76942; 82040; 82247; 82248; 82310; 82374; 82435; 82565; 82947; 82948; 84075; 84132; 84155; 84295; 84443; 84450; 84460; 84484; 84520; 85025; 88305; 88307; 93005; 93306; 97161; A4371; A4406; C9113; J0131; J0743; J1170; J1200; J1650; J1885; J2250; J2405; J2550; J2704; J2795; J3010; J3480; J3490; J7030; J7050; S0119

== ENCOUNTER → 2017-10-15 | Outpatient (CLI) | payer SELFPAY ==
[~2017-10-15] MED LIST changes: +DEXAMETHASONE SOD PHOS 10MG/ML ONE; +IOPAMIDOL 76% 75 ML INFUS BTL 75 ML ONE; +LIDOCAINE MPF 1% 5 ML VIAL ONE; +MIDAZOLAM 2 MG/2 ML VIAL ONE; +NS 0.9% 20 ML SDV 20 ML ONE; +ONDANSETRON 4 MG/2 ML VIAL ONE; +PROPOFOL EMUL(*) 10MG/ML 20 ML 20 ML ONE; +ROCURONIUM BROM 10 MG/ML 10 ML ONE; +SUGAMMADEX SOD 200 MG/2 ML SDV ONE; +fentaNYL CITR 100 MCG/2 ML AMP ONE
--- NOTE | 2017-10-15 11:33 | RADIOLOGY IMAGING REPORT ---
FAC[place] [facility] [place] NAME: Dillon Kramer : 1975 MR: [id number] V: [id number] EXAM DATE: ORDERING PHYSICIAN: ROE CERVANTES TECHNOLOGIST: Location: [facility] Patient: Dillon Kramer : 1975 Visit/Account:[id number] Date of Sevice: 10/15/2017 ABDOMEN/PELVIS WITH CONTRAST HISTORY: Perforated diverticulum TECHNIQUE: Following administration of IV contrast contiguous axial images acquired through the abdom en/pelvis. Coronal and sagittal reformatting also performed. Dose Lowering Technique One of the following dose optimization techniques was utilized in the performance of this exam: Autom ated exposure control; adjustment of the mA and/or kV according to the patient's size; or use of an i terative reconstruction technique. Specific details can be referenced in the facility's radiology C T exam operational policy. CONTRAST: 75 mL Isovue-370 COMPARISON: October 05, 2017 FINDINGS: Visualized lung bases: There is a partial improvement of the bibasilar linear atelectasis Hepatobiliary: Negative. Spleen: Negative. Adrenals: Negative. Pancreas: Negative. Kidneys ureters or bladder: Negative. Genitalia: Negative. GI: Diverticulosis of the left-sided colon again seen. There is less wall thickening in the proxima l sigmoid colon. In the previously noted linear channel of free air projecting medially toward sever al small bowel loops now contains only fat stranding. The previously noted free peritoneal air has r esolved. Adjacent thickened loop of small bowel is again seen. The adjacent abscess just to the rig ht of midline contacting the small bowel has increased in size and now measures 4 x 3.7 x 6.5 cm as o pposed to 2.8 x 2.1 x 3.1 cm. There is less small bowel distention noted throughout the remainder th e abdomen when compared to the prior study. The fat halo sign of the terminal ileum is again noted. There are postsurgical changes in the right lower quadrant bowel adjacent to the cecum Vessels/spaces/nodes: Shotty retroperitoneal lymph nodes can seen Bones/soft tissues: Multiple Schmorl's nodes in the thoracolumbar spine. Moderate size umbilical hernia containing fat Additional findings: None pertinent. IMPRESSION: Partial improvement of the bibasilar linear atelectasis lower lobes Again noted is diverticulosis left-sided colon. There is less wall thickening in the proximal sigmoi d colon. There is been interval clearing of the free intraperitoneal air. There is now a linear isaac nnel of fat stranding extending from the sigmoid colon to several loops of thickened small bowel in t he midabdomen.. The adjacent abscess contacting the small bowel has increased in size now measuring 4 x 3.7 x 6.5 cm as opposed to 2.8 x 2.1 x 3.1 cm. Left small bowel distention throughout remainder the abdomen Fat halo sign in the terminal ileum is again noted which can sometimes be related to inflammatory bow el disease. Shotty retroperitoneal lymph nodes Moderate size umbilical hernia containing fat Report Dictated By: Kasandra Velasco MD at 10/15/2017 11:04 AM Report E-Signed By: Kasandra Velasco MD at 10/15/2017 11:28 AM WSN:[id number]
== END ==
LOC: CT 07:15
PROVIDERS: ATTEND Surgery
DX: J98.19 Other pulmonary collapse (principal); K57.30 Diverticulosis of large intestine without perforation or abscess without bleeding; K42.9 Umbilical hernia without obstruction or gangrene; K63.89 Other specified diseases of intestine
CPT/HCPCS: 74177; J1100; J2001; J2405; J2704; J3010; Q9967

== ENCOUNTER 2018-01-28 00:11 | Inpatient (IN) | payer SELFPAY ==
[2018-01-28] VITALS (8 sets, daily range): BP systolic 111–140; BP diastolic 74–98
[~2018-01-28] VITALS: Ht 188 cm; Wt 108.4 kg
[~2018-01-28 00:11] MED LIST changes: +ACETAMINOPHEN 500 MG TAB PO ONE; +AMPICILLIN/SULBACT (*) 3 GM VL 3 GM in NS(*) 0.9% 100 ML BAG 100 ML IVPB ONE; +DOCU-416 PO; -IMIPENEM/CILASTA(*) 500MG VIAL 500 MG in NS(*) 0.9% 100 ML BAG 100 ML IVPB ONE; +MIRT-22 PO; +OXYC-854 PO; +PER PO; +PREGABALIN 150 MG CAPSULE PO ONE; -ROPIVACAINE 0.5% 20 ML VIAL ONE; +VENL75CA4 PO
[2018-01-28 08:18] LABS: PLATELET COUNT, AUTOMATED 305 K/uL (150-450)
[2018-01-28] MEDS ORDERED: DEXAMETHASONE SOD 4 MG/ML VIAL ONE (08:22)
[2018-01-28] MEDS ORDERED: PROPOFOL EMUL(*) 10MG/ML 20 ML 20 ML ONE (08:22)
[2018-01-28] MEDS ORDERED: ONDANSETRON 4 MG/2 ML VIAL ONE (08:22)
[2018-01-28] MEDS ORDERED: fentaNYL CITR 100 MCG/2 ML AMP ONE ×2 (08:22→20:09)
[2018-01-28] MEDS ORDERED: MORPHINE PF 5 MG/10 ML AMP ONE (08:22)
[2018-01-28] MEDS ORDERED: LIDOCAINE MPF 1% 5 ML VIAL ONE (08:22)
[2018-01-28] MEDS ORDERED: KETAMINE HCL 500 MG/10 ML VIAL ONE (08:25)
[2018-01-28] MEDS ORDERED: ROPIVACAINE 0.5% 20 ML VIAL ONE ×5 (08:29→13:16)
[2018-01-28] MEDS ORDERED: LIDOCAINE/SOD BICARB 8.4% SYR ID ONE (08:45)
[2018-01-28] MEDS ORDERED: NORMOSOL R SOLN(*) 1000 ML BAG 1,000 ML IV PRN (08:45)
[2018-01-28] MEDS ORDERED: ACETAMINOPHEN 500 MG TAB PO ONE (08:45)
[2018-01-28] MEDS ORDERED: MIDAZOLAM 2 MG/2 ML VIAL IVP PRN (08:45)
[2018-01-28] MEDS ORDERED: AMPICILLIN/SULBACT (*) 3 GM VL 3 GM in NS(*) 0.9% 100 ML BAG 100 ML IVPB ONE (08:45)
[2018-01-28] MEDS ORDERED: PREGABALIN 150 MG CAPSULE PO ONE (08:45)
[2018-01-28] MEDS ORDERED: FAMOTIDINE 20 MG TAB PO ONE (08:45)
[2018-01-28] MEDS ORDERED: ROCURONIUM BROM 10 MG/ML 10 ML ONE (09:53)
[2018-01-28] MEDS ORDERED: HYDROmorphone HCL 2 MG/ML SDV ONE ×2 (10:43→19:03)
[2018-01-28] MEDS ORDERED: ALBUMIN HUMAN 5% 250 ML BTL 250 ML ONE (12:20)
[2018-01-28] MEDS ORDERED: SUGAMMADEX SOD 500 MG/5 ML SDV ONE (13:45)
[2018-01-28] MEDS ORDERED: DESFLURANE 240 ML BTL INH ONE (15:44)
[2018-01-28] MEDS ORDERED: INDOCYANINE GREEN 25 MG VIAL IVP ONE ×2 (16:48→16:55)
[2018-01-28] MEDS ORDERED: FLUSH 10 ML SYR IVP PRN (19:05)
[2018-01-28] MEDS ORDERED: NALOXONE HCL 0.4 MG/ML VIAL IVP PRN (19:05)
--- NOTE | 2018-01-28 19:18 | Post Operative Progress Note ---
Post Operative Progress Note Date: Jan 28, 2018 Time: 19:04 Surgeon: Jacque Dictation number: [id number] Anesthesia: GETA by Dr. Crocker Pre-Op Diagnosis: Undesired colostomy h/o perforated diverticulitis Post-Op Diagnosis: ARIADNE Findings: C/W dx Procedure(s): Robotic lysis of adhesions, mobilization of splenic flexure, colostomy takedown, colorectal anastomosis Specimen Removed:(May be N/A): Rectosigmoid junction Section of omentum Complications: None Fluids: See anesthesia record Estimated Blood Loss: Minimal Date OP Note Dictated: Jan 28, 2018 Time OP Note Dictated: 19:06 ROE CERVANTES MD Jan 28, 2018 19:17
--- NOTE | 2018-01-28 20:55 | OPERATIVE REPORT 1 ---
EVENT DATE: January 28, 2018 SURGEON: Garfield Santillan MD ANESTHESIOLOGIST: Braulio Crocker MD ANESTHESIA: General endotracheal anesthesia. PREOPERATIVE DIAGNOSES 1. History of perforated diverticulitis. 2. Undesired colostomy. POSTOPERATIVE DIAGNOSES 1. History of perforated diverticulitis. 2. Undesired colostomy. PROCEDURES PERFORMED Robotic lysis of adhesions with mobilization of splenic flexure, colostomy takedown, and reanastomosis with colorectal anastomosis. COMPLICATIONS None. CONDITION Stable. BLOOD LOSS Minimal. SPECIMENS Rectosigmoid junction. INDICATIONS This is a 42-year-old gentleman who several months ago was admitted with diverticulitis when he developed an abscess and failed to respond to antibiotic treatment alone. He ended up being treated with exploratory laparotomy with ultimately sigmoid colectomy and colostomy, a Ken procedure. He has healed well from that operation and now is requesting to have the colostomy reversed. DESCRIPTION OF PROCEDURE The patient was brought to the operating room and placed supine on the operating table. General endotracheal anesthesia was administered, and the patient was placed in the [facility]. A Phan catheter was inserted without problems. All pressure points were padded and checked to make sure they were well padded. His abdomen was then prepped and draped in a sterile fashion. Timeout was completed. I then injected the right subcostal skin right in the previous laparoscopic incision with 0.5% ropivacaine plain and made a 5 mm incision. I then used a Veress needle to insufflate the abdomen to a pressure of 15 mmHg. I then inserted a 5 mm optical trocar into this site with the camera and a zero-degree scope in the optical trocar and focused. Once this was in, I inserted an 8 mm robotic port in the epigastric midline and then three more in a line perpendicular to an aiming point at the sigmoid colon. Robotic ports were placed in each of these incisions under direct visualization. I then docked and targeted the robot, inserted the instruments, and then went to the console. This patient had extensive adhesions throughout his abdomen, and these were all taken down mostly with hot scissors without any evidence of enterotomy or other problems. This portion of the operation took at least two hours to complete. I then worked on the colostomy which took another hour and a half or so to clean off the colostomy and separate small bowel from it. I then turned my attention to the rectal stump. I had previously left quite a bit of distal sigmoid colon so as to stay out of the pelvis, hopefully making reoperation easier. I then divided the mesocolon all the way down to the peritoneal reflection and then cleaned off the rectum circumferentially. I then used the Endo EDILSON stapler with a green load and divided the rectum at this level. I then pulled this specimen up into the main part of the abdomen to be removed later. I then mobilized the splenic flexure. This took several hours to complete because the normal tissue planes just were not very evident due to the previous infection and surgery. Ultimately, I was able to mobilize the splenic flexure and get enough length to bring the colon down into the pelvis and abut up against the staple line. After this was completed, I scrubbed back in and took the stoma down by using electrocautery circumferentially around the stoma and dissecting all the way through the fascia and into the abdomen. I then pulled the colon out, trimmed back the very end that was involved with the stoma itself, then used the sizers and dilated this portion of the colon from 25 then to 29. The 29 ultimately passed without any problems. I then obtained a 29 mm EEA stapler and inserted the anvil into this colon and then placed a 3-0 silk pursestring suture all the way around this. I then dropped it back into the abdomen and inserted a wound protector. I pulled out the rectosigmoid junction with the wound protector in place, and this was passed off the field. I then twisted the wound protector so that I could re-insufflate the abdomen. Even though it was close to the staple line, I wanted to get it closer, so I mobilized some more of the transverse colon, and I did this robotically. I then inserted the EEA stapler into the patient's rectum until it abutted the staple line and then engaged the anvil to the stapler after advancing the trocar. I then pulled the anvil in to the stapler until the red line was in the middle of the green area on the stapler, and I then fired the stapler. I then loosened it up and removed the EEA stapler and two full donuts. I then filled the pelvis with normal saline and inserted a rigid proctoscope into the rectum and insufflated the rectum and sigmoid colon. I could see it clearly inflating laparoscopically, and there was no bubbling. I then removed all of the food from the pelvis, and then placed some interrupted 3-0 silk sutures on the left and right sides as well as a couple anteriorly. I did not put any posteriorly due to the forces I would have had to apply on the anastomosis. I then closed the deep fascia posterior to the muscles with running V-Loc absorbable suture. He had an umbilical hernia that I closed with a running V-Loc absorbable suture. I closed the 12 mm port, which I ultimately up-sized the right lower quadrant port to accommodate the stapler to a 12 mm port, and this deep fascia was closed with running V-Loc absorbable suture. I then removed all the robotic and laparoscopic instruments, undocked the robot, and then desufflated the abdomen. I removed all of the ports and closed the anterior fascia at the stoma site with a running #1 Prolene suture. I then placed two interrupted 2-0 nylon sutures in the skin to loosely close it, and there was a 1/4-inch Dora drain that I left in the wound to allow it to continue to drain. I also placed an 0 Vicryl suture in the anterior fascia at the 12 mm site in the right lower quadrant. After these were all closed, the skin at each port site was closed with 4-0 Monocryl subcuticular suture. The skin was cleaned and dried, and Steri-Strips were applied, followed by sterile surgical dressings over the port sites, and then 4 x 4 gauze were taped into place over the colostomy takedown site. The patient was awakened, extubated in the operating room, and transported to the recovery room in stable condition having tolerated the procedure without any apparent problems. BRITTANY
[2018-01-28] MEDS: NS(*) 0.9% 1000 ML BAG 1,000 ML IV PRN (22:05)
[2018-01-28] MEDS: HYDROmorphone PCA 6 MG/30 ML IV PRN (22:08)
[2018-01-28] MEDS: PIPERACILLIN/TAZO*3.375GM VIAL 3.375 GM in NS(*) 0.9% 100 ML ADDVANT BAG 100 ML IVPB SCH (23:28)
[2018-01-28] MEDS: NICOTINE 14 MG/24 HR PATCH TD SCH (23:29)
[2018-01-29] VITALS (12 sets, daily range): BP systolic 111–147; BP diastolic 69–93; Ht 188 cm; Wt 108.4 kg
[2018-01-29] MEDS: ACETAMINOPHEN(*)1000 MG/100 ML 100 ML IVPB SCH ×4 (00:16→18:00)
[2018-01-29] MEDS: PATCH REMOVAL 1 EA TP SCH (00:20)
[2018-01-29] MEDS: PIPERACILLIN/TAZO*3.375GM VIAL 3.375 GM in NS(*) 0.9% 100 ML ADDVANT BAG 100 ML IVPB SCH ×3 (05:23→17:54)
[2018-01-29] MEDS ORDERED: VENL150T10 PO (05:26)
[2018-01-29 05:49] LABS: PLATELET COUNT, AUTOMATED 204 K/uL (150-450)
[2018-01-29] MEDS: HYDROmorphone PCA 6 MG/30 ML IV PRN ×2 (06:18→23:09)
[2018-01-29] MEDS: PANTOPRAZOLE SOD 40 MG IV VIAL IVP SCH (08:15)
[2018-01-29] MEDS: NS(*) 0.9% 1000 ML BAG 1,000 ML IV PRN (08:15)
--- NOTE | 2018-01-29 08:20 | General Surgery Progress Note ---
Subjective Progress Notes Subjective No specific complaints this morning. No flatus. Pain well controlled. Physical Exam Vital Signs Date Time Temp Pulse Resp B/P (MAP) Pulse Ox O2 Delivery O2 Flow Rate FiO2 01/29/18 06:55 96 01/29/18 03:18 98.3 114/74 (87) 01/29/18 03:00 74 Nasal Cannula 3.0 01/28/18 23:30 16 General Appearance: Alert, Awake, No Acute Distress, Afebrile GI: Other (Soft, appropriate postop TTP) Extremities: Perfused Result Diagram: 01/29/18 0511 01/29/18 05 Assessment and Plan Problems: (1) S/P colostomy takedown Status: Acute Assessment & Plan: 01/29/18: POD#1 s/p robotic colostomy takedown. Seems to be doing well. 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 The colon appeared to have good blood flow based on colon and ICG perfusion intraoperatively but it was this way during his Mireles's procedure as well. If the tissue all looks pink then will proceed with routine postop care. If it is ischemic then will need to make a laparotomy incision, take down the anastomosis, and take down the hepatic flexure to mobilize more colon to facilitate and new anastomosis more proximal in his colon. I mobilized as much colon as was possible through the standard robotic port site placement and there was no tension on the anastomosis but given his previous postop recovery I think assessing the anastomosis for adequate perfusion is prudent with revision of the anastomosis now before a leak and normal postoperative swelling/adhesions makes a reoperation more difficult in a week or two. He seems to understand this reasoning and is willing to proceed with this plan this afternoon. Condition Stable. Time Spent: < 30 min Exam Sepsis Risk: No Definite Risk ROE CERVANTES MD Jan 29, 2018 08:20
[2018-01-29] MEDS ORDERED: NORMOSOL R SOLN(*) 1000 ML BAG 1,000 ML IV ONE (11:52)
[2018-01-29] MEDS ORDERED: PROPOFOL EMUL(*) 10MG/ML 20 ML 40 ML ONE (13:39)
[2018-01-29] MEDS ORDERED: LIDOCAINE MPF 1% 5 ML VIAL ONE (13:39)
[2018-01-29] MEDS ORDERED: fentaNYL CITR 250 MCG/5 ML AMP ONE (15:39)
--- NOTE | 2018-01-29 15:42 | Medical Nutrition Therapy ---
Nutrition Anthropometrics Height (Inches): 74.00 Height (Calculated Centimeters: 187.939331 Weight (Pounds): 239 Weight (Calculated Kilograms): 108.409 BMI: 30.6 Saulo Nutrition Score: Adequate Saulo Nutrition Risk Score: 20 Dietary Referral Nutrition Risk Factors: Recent Nutrition Impact Nutrition Risk Comment: Physical Findings Physical Appearance: Obese BMI 30-39 Skin Appearance Skin Appearance: Edema Edema Location Modifier: Edema Location: Type of Edema: Degree of Edema: Gastrointestinal Symptoms GI Symtoms: Change in Bowel Pattern Tube Present: Bowel Sounds: Recent Bowel Pattern: Stool Characteristics: Nutritional Diagnosis Nutritional Risk Acuity 2: GI Malabsorption (colostomy takedown) Past Medical History: Hx of colectomy and appendectomy Nutritional Acuity: 2-Moderate Nutrition Diagnosis: Altered GI Function Nutrition Etiology: Physiological Causes Nutrition Problem/Etiology/Sym: Tltered GI function r/t physiological causes AEB colostomy takedown Adjusted Energy Requirement Re: 2500 (HB adj for obesity) Protein Requirement: 95 (1.1gm/kgh IBW) Fluid Requirement: 2500 (1ml/kcal) Diet Type: NPO (Nothing by Mouth) Nutrition Intervention: Incr diet as tolerated Nutrition Monitoring & Eval RD Patient Assessment Time: [address] Assessment Type: RD Screen Patient Nutrition Acuity: 2-Moderate Follow Up Date: Feb 01, 2018 Nutritional Comment: 01/29. Admitted for colostomy takedown. Surgery went well, but pt experiencing pain. Pt is NPO. Low Hgb 11.7, Hct 35.6, and calcium 7.9. Pt is 74in, 239lbs, with a BMI of 30.7, placing BMI in obese class 1. Increase the diet as tolerated, will cont to monitor labs. MR 01/29 16:00- Pt cont NPO Will cont to monitor. RODRICK WAGNER Jan 29, 2018 15:42
[2018-01-29] MEDS ORDERED: ONDANSETRON 4 MG/2 ML VIAL ONE (15:58)
[2018-01-29] MEDS ORDERED: PROPOFOL EMUL(*) 10MG/ML 20 ML 20 ML ONE (15:58)
[2018-01-29] MEDS ORDERED: DEXAMETHASONE SOD PHOS 10MG/ML ONE (15:58)
[2018-01-29] MEDS ORDERED: KETAMINE HCL 200 MG/20 ML MDV ONE ×3 (16:00→18:11)
[2018-01-29] MEDS ORDERED: SUGAMMADEX SOD 200 MG/2 ML SDV ONE (16:10)
[2018-01-29] MEDS ORDERED: ROPIVACAINE 0.5% 20 ML VIAL ONE (16:14)
[2018-01-29] MEDS ORDERED: HYDROmorphone HCL 2 MG/ML SDV ONE ×2 (16:27→22:04)
[2018-01-29] MEDS ORDERED: fentaNYL CITR 100 MCG/2 ML AMP ONE ×7 (17:10→22:44)
[2018-01-29] MEDS ORDERED: ACETAMINOPHEN(*)1000 MG/100 ML 100 ML IVPB ONE (19:26)
[2018-01-29] MEDS ORDERED: PROMETHAZINE 25 MG/ML 1 ML AMP ONE (21:55)
--- NOTE | 2018-01-29 22:40 | Post Operative Progress Note ---
Post Operative Progress Note Date: Jan 29, 2018 Time: 22:21 Surgeon: Jacque Dictation number: [id number] Anesthesia: GETA by Dr. Miranda Pre-Op Diagnosis: Ischemic colon at anastomosis Post-Op Diagnosis: ARIADNE Findings: 10cm of ischemic colon proximal to the anastomosis Procedure(s): Flexible proctoscopy Ex lap Takedown of anastomosis Colon resection Colorectal anastomosis Diverting loop ileostomy Specimen Removed:(May be N/A): Distal transverse and descending colon Omentum Anastomotic donuts Complications: None Fluids: See anesthesia record Estimated Blood Loss: Minimal Date OP Note Dictated: Jan 29, 2018 Time OP Note Dictated: 22:24 ROE CERVANTES MD Jan 29, 2018 22:40
[2018-01-29] MEDS: DIAZEPAM 50 MG/10 ML MDV IVP PRN (23:49)
[2018-01-30] VITALS (11 sets, daily range): BP systolic 98–147; BP diastolic 49–109
[2018-01-30] MEDS: NICOTINE 14 MG/24 HR PATCH TD SCH ×2 (00:22→22:38)
[2018-01-30] MEDS: PIPERACILLIN/TAZO*3.375GM VIAL 3.375 GM in NS(*) 0.9% 100 ML ADDVANT BAG 100 ML IVPB SCH ×4 (00:23→17:44)
[2018-01-30] MEDS: ACETAMINOPHEN(*)1000 MG/100 ML 100 ML IVPB SCH ×4 (02:26→23:40)
[2018-01-30] MEDS: HYDROmorphone PCA 6 MG/30 ML IV PRN ×3 (03:42→22:17)
[2018-01-30] MEDS: DIAZEPAM 50 MG/10 ML MDV IVP PRN ×3 (06:10→20:08)
[2018-01-30 06:33] LABS: PLATELET COUNT, AUTOMATED 260 K/uL (150-450)
--- NOTE | 2018-01-30 08:24 | General Surgery Progress Note ---
Subjective Progress Notes Subjective Main complaint this morning is urethral pain due to bird catheter. He wants it removed. Also has significant incisional pain. No N/V. Physical Exam Vital Signs Date Time Temp Pulse Resp B/P (MAP) Pulse Ox O2 Delivery O2 Flow Rate FiO2 01/30/18 05:11 94 01/30/18 04:00 106 129/82 (98) 01/30/18 02:36 98.8 18 Nasal Cannula 3.5 General Appearance: Alert, Awake, No Acute Distress, Afebrile GI: Other (Soft, appropriate postop TTP, prevena vac dressing is in place and intact. Stoma is pink and functional.) Extremities: Warm, Perfused Result Diagram: 01/30/1862001/30/18620 Assessment and Plan Problems: (1) S/P colostomy takedown Status: Acute Assessment & Plan: 01/29/18: POD#1 s/p robotic colostomy takedown. Seems to be doing well. 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 The colon appeared to have good blood flow based on colon and ICG perfusion intraoperatively but it was this way during his Mireles's procedure as well. If the tissue all looks pink then will proceed with routine postop care. If it is ischemic then will need to make a laparotomy incision, take down the anastomosis, and take down the hepatic flexure to mobilize more colon to facilitate and new anastomosis more proximal in his colon. I mobilized as much colon as was possible through the standard robotic port site placement and there was no tension on the anastomosis but given his previous postop recovery I think assessing the anastomosis for adequate perfusion is prudent with revision of the anastomosis now before a leak and normal postoperative swelling/adhesions makes a reoperation more difficult in a week or two. He seems to understand this reasoning and is willing to proceed with this plan this afternoon. 01/30/18: POD#2 s/p robotic colostomy takedown POD#1 s/p flexible proctoscopy, ex-lap, anastomosis takedown, further colon mobilization including hepatic flexure and part of ascending colon, re- anastomosis, diverting loop ileostomy. Distal 10cm of colon above anastomosis was ischemic on proctoscopy so this was removed and anastomosis revised after mobilizing more colon. Gave him a protective diverting loop ileostomy. Doing fairly well this morning. Will remove bird at patient's request but I warned him about possibility of urinary retention and the bird may have to be replaced later today if he's unable to urinate. Will have him save all urine so we can monitor urine output. He's tachycardic, I suspect he's a little dry after his multi-hour laparotomy yesterday, will fluid bolus him as needed. UOP is adequate. Some of the tachycardia may be pain related. BPs are mildly elevated. Continue bowel rest until postop ileus resolves. Start lovenox tomorrow. May start toradol tomorrow as well if he needs further pain control measures. Start ambulating today, IS, pulmonary hygiene, PPI, etc. Condition Stable. Time Spent: < 30 min Exam Sepsis Risk: Sepsis Risk ROE CERVANTES MD Jan 30, 2018 08:24
[2018-01-30] MEDS ORDERED: ENOXAPARIN 40 MG/0.4ML SYR SC SCH (09:00)
--- NOTE | 2018-01-30 09:14 | OPERATIVE REPORT 1 ---
EVENT DATE: January 29, 2018 SURGEON: Garfield Santillan MD ANESTHESIOLOGIST: Ender Miranda MD ANESTHESIA: General endotracheal anesthesia PREOPERATIVE DIAGNOSIS Ischemic colon at anastomosis. POSTOPERATIVE DIAGNOSIS Ischemic colon at anastomosis. PROCEDURE PERFORMED 1. Flexible proctoscopy with inspection of the anastomosis and adjacent colon. 2. Exploratory laparotomy. 3. Take-down of the anastomosis. 4. Partial colon resection. 5. Colorectal reanastomosis. 6. Diverting loop ileostomy. COMPLICATIONS None. CONDITION Stable. ESTIMATED BLOOD LOSS Minimal. FINDINGS On flexible proctoscopy, the distal 10 cm of the colon appeared to be ischemic. SPECIMENS 1. Distal transverse and descending colon. 2. Omentum. 3. Anastomotic donuts. INDICATIONS This is a 42-year-old gentleman who several months ago presented with perforated diverticulitis with a large abscess. Laparoscopic drainage was attempted and ultimately in getting into the abscess, the colon perforation was noted and it was not contained and so I proceeded with a Ken's procedure. He was then requesting to have the colostomy taken down and this was completed yesterday via robotic approach. After his initial Ken's procedure, a day after the surgery his colostomy became ischemic and required revision, so I was concerned about the colon at the anastomosis from yesterday's surgery, and so discussed with him today performing a endoscopic inspection of the anastomosis. The colon looked perfused yesterday, but the ICG was a little bit delayed getting into the distal colon, although it did ultimately glow at the anastomosis. Because of these things, the colostomy ischemia during his previous surgery and the delayed progression of ICG into the distal colon at the anastomosis, I wanted to inspect it and so I consented him for flexible proctoscopy to inspect the anastomosis and if it looked ischemic then I would proceed with laparotomy and revise the anastomosis. This would be to prevent a leak which would be a much more difficult operation. I mobilized as much colon as I could do with the port placement during the robot yesterday, including the splenic flexure and part of the transverse colon, and so physically could not mobilize anymore colon with the robot. For this reason, a laparotomy would be planned if the colon was ischemic to mobilize more of the transverse colon and possibly hepatic flexure. DESCRIPTION OF PROCEDURE The patient was brought to the operating room, placed in the [facility], and TIVA anesthesia was administered . The colonoscope was lubricated and inserted into his anus. I inspected the anastomosis which appeared to be intact , but the distal 10 cm of colon mucosa was very ischemic appearing. At this point, I elected to proceed with laparotomy to revise the anastomosis. General endotracheal anesthesia was administered by Dr. Miranda and his abdomen was prepped and draped in sterile fashion. A timeout was completed once again and I injected the midline skin in the previous surgical scar from the Ken's procedure with 0.5% ropivacaine plain. I then made the midline incision, dissected through the dermis and subcutaneous fat, down to the midline fascia. I opened the fascia and peritoneum along the entire length of the skin incision. Bookwalter retraction system was set up and the patient was placed in acute Trendelenburg and I moved all of the small bowel away from the pelvis. I then inspected the area of anastomosis and the anastomosis was beyond the peritoneal reflection, so it was quite deep in this male pelvis. I attempted several different staplers to get beyond the anastomosis, but ultimately was able to use an Endo EDILSON 45 mm stapler with a blue load to get beyond the staple- line and divide the upper rectum distal to the anastomosis. I then pulled the colon out of the pelvis and then began mobilizing more of the transverse colon by dividing the root of the mesentery. I then partially mobilized the hepatic flexure and with this gained more than enough length to get down into the pelvis. I found a line of demarcation where the colon proximal to this was nice and pink, and I used the EDILSON-stapler to divide the colon at this location and then divided the mesocolon at this location while preserving blood flow to this area with the Harmonic scalpel. This was passed off the field. There was some very ratty looking omentum that was hanging on by just a very narrow pedicle that I went ahead and removed with the Harmonic scalpel. Next, I tested the rectal stump to see the integrity of the staple-line since I had to go across this very difficult area to get access to the other staple-line from yesterday. There was bubbling from the rectal stump. I used a series of interrupted 3-0 Silk sutures and with an health care assistant down between the patient's legs with a proctoscope insufflating the rectal stump intermittently filling the pelvis with saline, I was able to secure the pelvis with multiple interrupted 3-0 Silk sutures. I then had to make a decision whether to reanastomosis him or just give him another colostomy at this time. I inspected the stump for quite some time and it appeared well perfused, and it was air tight. I elected to give him a shot at another anastomosis, but would protect it with a loop ileostomy. I inserted a 33 mm EEA sizer into the divided colon as well as into his rectum and up into the end of the stump and it passed with no problems. I then secured the anvil in the distal colon and made a purse- string suture with a 2-0 Silk suture and then I inserted the EEA stapler in through his anus up to the top of the rectal stump. I then advanced the trocar through the rectal stump, and then engaged the anvil onto the trocar and then pulled the trocar in until the red line was in the green area of the EEA stapler. I then fired the stapler and then held it for 30 seconds and then released it and then let the anvil out a half a turn. I then gently rotated the gently rotated the EEA stapler and pulled it out of his rectum. I then removed the anvil and inspected the donuts and I had two complete donuts. I then leak tested the anastomosis and there was no air leaks at the end of this. I then oversewed at least the anterior and right and left portions of the anastomosis, the ones that were easily accessible. I did not reinforce the posterior due to inaccessibility of this area. I saw some of my previously placed Silk sutures and I oversewed this area to secure the anastomosis. At this point, I irrigated and dried his abdomen with about 5 liters of normal saline. I removed all of the irrigation from his pelvis as well as from over the liver, at Morison's pouch, and then over in the left upper quadrant around the stomach and spleen. There was no bleeding at the end of this case. I opened up the colostomy takedown wound on the left side. This looked like the best place for his ileostomy ironically. Because of freeing up the hepatic flexure, but not completely freeing up the ascending colon, his colon ascended up towards the liver but did not reach it and then came directly back down into his pelvis. The terminal ileum went posterior to this descending portion of the colon, and so trying to bring it up in the right lower quadrant would have been very difficult due to the new proximity of the colon. It did come up nicely in the left lower quadrant and the previous colostomy wound. I opened the wound up and pulled a loop of terminal ileum up through this and used a plastic bridge to secure it at this location. I then placed two pieces of Seprafilm over the bowel in the midline incision to hopefully decrease risk of adhesions and then I closed the midline fascia with running 0-looped PDS sutures. I irrigated and dried the wound and then closed the skin around it loosely with skin brendan. I then placed a 1010 drape over the midline wound so I could mature the stoma and protect the midline wound. I then matured the stoma, the loop ileostomy by placing interrupted 3-0 Vicryl sutures through the dermis and into the bowel to keep it well projecting beyond the skin. Once this was completed I opened up the small bowel in a transverse fashion and then sewed the edge of the bowel all the way around to the skin with running 4-0 Monocryl sutures in a Flor fashion if this can be applied to a loop ileostomy. I then cleaned and dried the skin and placed a stoma appliance around the ileostomy. We then switched gloves and took the 1010 drape down and cleaned and dried his skin. I then placed Steri-Strips over the port sites from yesterday and covered these with sterile surgical dressings and then covered the midline incision with a Prevena back dressing. He was then awakened and extubated in the operating room and transported to the recovery room in stable condition having tolerated the procedure without any apparent problems. BRITTANY
[2018-01-30] MEDS: PANTOPRAZOLE SOD 40 MG IV VIAL IVP SCH (09:22)
[2018-01-30] MEDS: LR(*) 1000 ML BAG 1,000 ML IV PRN (09:27)
[2018-01-30] MEDS ORDERED: MORPHINE 1 MG/ML 30 ML PCA IV PRN (12:05)
[2018-01-30] MEDS: NS(*) 0.9% 1000 ML BAG 1,000 ML IV PRN (12:23)
[2018-01-30] MEDS ORDERED: LR 500 ML BAG 500 ML IV ONE ×2 (14:15→20:05)
--- NOTE | 2018-01-30 15:38 | PROGRESS NOTE ---
DATE: January 30, 2018 SUBJECTIVE Patient was seen this morning on regular rounds by Dr. Santillan. Patient is status post revision of an anastomosis and the creation of a diverting ileostomy yesterday. I was contacted by the nursing staff a little bit ago, reporting the patient was having increased respiratory rate as well as tachycardia and some decrease of his blood pressure, although not to the range of being truly hypotensive. The patient reports that he is having pain at the incision site and having some difficulty breathing secondary to that, but otherwise, he appeared to be in no acute distress. His Phan catheter was removed this morning. After being seen by Dr. Santillan, it was felt that he was hypovolemic, and so he was given a 1 L IV fluid bolus. The patient has passed urine, and the urine appeared to be very concentrated and of a small quantity, well less than 100 mL for the current shift. PHYSICAL EXAMINATION VITAL SIGNS: Patient is afebrile. His pulse rate is 117. Last recorded blood pressure was 142/109, but since that one, the patient's systolic has dropped to below 100. LUNGS: Clear to auscultation bilaterally. HEART: Rate is regular, but significantly tachycardic. ABDOMEN: Some bowel sounds, although they seem to be reduced. The ileal stoma looks edematous. RADIOLOGY STUDIES Ultrasound scan of the bladder shows there to be very little urine intraluminally, reading less than 50 mL. LABORATORY STUDIES Laboratory studies this morning showed a white count of 13.4 with 89.3% neutrophils. Hemoglobin was 13 this morning, up from 11.7 yesterday morning. Hematocrit today 39.9, yesterday 35.6. Patient's O2 has been increased to 3.5L , and his current O2 saturation is 96%. About two hours ago, his O2 saturation was down to 90%, thus the increase in O2. ASSESSMENT Patient appears to be significantly hypovolemic. PLAN Patient is receiving another IV fluid bolus of 1000 mL of LR. I will reassess him a bit later and give additional fluid as needed. I do not anticipate the need for transfusions, and right now the patient does not appear to be septic. MTDD
[2018-01-30] MEDS ORDERED: LR(*) 1000 ML BAG 1,000 ML IV PRN ×2 (20:05→21:15)
[2018-01-30] MEDS: PATCH REMOVAL 1 EA TP SCH (22:38)
[2018-01-31] VITALS (7 sets, daily range): BP systolic 97–132; BP diastolic 67–91
[2018-01-31] MEDS: PIPERACILLIN/TAZO*3.375GM VIAL 3.375 GM in NS(*) 0.9% 100 ML ADDVANT BAG 100 ML IVPB SCH ×5 (00:31→23:36)
[2018-01-31] MEDS: DIAZEPAM 50 MG/10 ML MDV IVP PRN (02:40)
[2018-01-31] MEDS: ACETAMINOPHEN(*)1000 MG/100 ML 100 ML IVPB SCH ×4 (04:45→21:15)
[2018-01-31] MEDS: HYDROmorphone PCA 6 MG/30 ML IV PRN ×2 (05:23→16:12)
[2018-01-31 07:48] LABS: PLATELET COUNT, AUTOMATED 221 K/uL (150-450)
[2018-01-31] MEDS: ENOXAPARIN 40 MG/0.4ML SYR SC SCH (09:38)
[2018-01-31] MEDS: PANTOPRAZOLE SOD 40 MG IV VIAL IVP SCH (09:39)
[2018-01-31] MEDS ORDERED: LR(*) 1000 ML BAG 1,000 ML IV ONE (09:40)
[2018-01-31] MEDS ORDERED: LR(*) 1000 ML BAG 1,000 ML IV PRN (11:30)
[2018-01-31] MEDS: PATCH REMOVAL 1 EA TP SCH (12:28)
[2018-01-31] MEDS: ONDANSETRON 4 MG/2 ML VIAL IVP PRN (21:14)
[2018-01-31] MEDS: NICOTINE 14 MG/24 HR PATCH TD SCH (22:00)
[2018-01-31] MEDS: LR(*) 1000 ML BAG 1,000 ML IV PRN (22:29)
[2018-02-01] MEDS: ONDANSETRON 4 MG/2 ML VIAL IVP PRN (01:29)
[2018-02-01] MEDS: ACETAMINOPHEN(*)1000 MG/100 ML 100 ML IVPB SCH ×4 (02:28→21:26)
[2018-02-01] MEDS: DIAZEPAM 50 MG/10 ML MDV IVP PRN ×2 (02:28→08:37)
[2018-02-01 02:35] VITALS: BP 118/73
[2018-02-01] MEDS: HYDROmorphone PCA 6 MG/30 ML IV PRN ×2 (05:27→14:43)
[2018-02-01] MEDS: PIPERACILLIN/TAZO*3.375GM VIAL 3.375 GM in NS(*) 0.9% 100 ML ADDVANT BAG 100 ML IVPB SCH ×4 (05:27→23:34)
[2018-02-01] MEDS: LR(*) 1000 ML BAG 1,000 ML IV PRN (06:56)
[2018-02-01 07:53] VITALS: BP 119/76
[2018-02-01] MEDS ORDERED: LR(*) 1000 ML BAG 1,000 ML IV PRN (07:56)
--- NOTE | 2018-02-01 08:00 | PROGRESS NOTE ---
DATE: January 31, 2018 SUBJECTIVE Patient reports that he feels better than he did yesterday. He also looks like he feels stronger. Yesterday the greatest problems were with tachycardia, some brief episodes of mild hypotension, and low urine output. These responded fairly well to repeated IV fluid boluses. Urine output has come up, although, the urine still looks quite concentrated. Tachycardia has diminished. It was running a bit over 140 and now is mostly between 100-110. The patient has no appetite. He notes some occasional mild nausea but no vomiting. PHYSICAL EXAM VITAL SIGNS: Temp 98.9 orally. Pulse rate is 106. Respiratory rate is 20. Blood pressure 119/73. O2 saturation is 97% on nasal cannula at 3.5 liters. GENERAL: The patient is in no acute distress. Sitting up in bed and appears a bit brighter than yesterday. LUNGS: Clear to auscultation bilaterally, no rales. CV: The heart has a regular rate and rhythm with mild tachycardia noted. ABDOMEN: Bowel sounds are diminished. A midline dressing is intact. There is mild tenderness. The ileal stoma is edematous but appears viable. EXTREMITIES: Questionable, very mild edema of both feet and ankles. It is not pitting. There is a palpable DP pulse in the right foot, found with some difficulty. The pedal pulses on the left are not palpable, but the foot has no appearance of vascular compromise. Both legs are nonedematous and nontender. LABORATORY STUDIES WBC is 12 which is down from 13.4 yesterday. Differential shows 84.3% neutrophils down from 89.3% neutrophils yesterday. Hemoglobin today is 9.7, yesterday was 13 and that was up from 11.7 two days ago. Hematocrit today is 30.1, yesterday was 39.9, and two days ago was 35.6. Platelet count 221,000. Chemistries the BMP is within normal limits with the exceptions of sodium at 136 and calcium at 7.9. ASSESSMENT Progressing well postop day #2 status post revision of anastomosis and creation of a diverting ileostomy. PLAN Continue npo status for now, although the patient may have sips and chips. We will continue to administer IV fluid boluses to bring the patient back to a normal volemic state. Will continue to monitor his urine output closely. So far he is tolerating the IV fluid boluses well with no signs of pulmonary overload. MTDD
--- NOTE | 2018-02-01 08:02 | General Surgery Progress Note ---
Subjective Progress Notes Subjective Feeling better. Pain is fairly minimal when laying on his back. Having to burp the stoma bag due to gas in the bag. Feeling hungry. Physical Exam Vital Signs Date Time Temp Pulse Resp B/P (MAP) Pulse Ox O2 Delivery O2 Flow Rate FiO2 02/01/18 07:53 98.3 97 16 119/76 (90) 98 Nasal Cannula 2.0 Intake and Output 02/02/18 07:00 Output Total 375 ml Balance -375 ml Output Urine Total 375 ml General Appearance: Alert, Awake, No Acute Distress, Afebrile GI: Other (Soft, appropriate postop TTP, prevena vac dressing is in place and intact. Stoma is pink and functional. Some liquid and gas in the bag.) Extremities: Warm, Perfused Result Diagram: 01/31/1873901/31/18739 Assessment and Plan Problems: (1) S/P colostomy takedown Status: Acute Assessment & Plan: 01/29/18: POD#1 s/p robotic colostomy takedown. Seems to be doing well. 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 The colon appeared to have good blood flow based on colon and ICG perfusion intraoperatively but it was this way during his Mireles's procedure as well. If the tissue all looks pink then will proceed with routine postop care. If it is ischemic then will need to make a laparotomy incision, take down the anastomosis, and take down the hepatic flexure to mobilize more colon to facilitate and new anastomosis more proximal in his colon. I mobilized as much colon as was possible through the standard robotic port site placement and there was no tension on the anastomosis but given his previous postop recovery I think assessing the anastomosis for adequate perfusion is prudent with revision of the anastomosis now before a leak and normal postoperative swelling/adhesions makes a reoperation more difficult in a week or two. He seems to understand this reasoning and is willing to proceed with this plan this afternoon. 01/30/18: POD#2 s/p robotic colostomy takedown POD#1 s/p flexible proctoscopy, ex-lap, anastomosis takedown, further colon mobilization including hepatic flexure and part of ascending colon, re- anastomosis, diverting loop ileostomy. Distal 10cm of colon above anastomosis was ischemic on proctoscopy so this was removed and anastomosis revised after mobilizing more colon. Gave him a protective diverting loop ileostomy. Doing fairly well this morning. Will remove bird at patient's request but I warned him about possibility of urinary retention and the bird may have to be replaced later today if he's unable to urinate. Will have him save all urine so we can monitor urine output. He's tachycardic, I suspect he's a little dry after his multi-hour laparotomy yesterday, will fluid bolus him as needed. UOP is adequate. Some of the tachycardia may be pain related. BPs are mildly elevated. Continue bowel rest until postop ileus resolves. Start lovenox tomorrow. May start toradol tomorrow as well if he needs further pain control measures. Start ambulating today, IS, pulmonary hygiene, PPI, etc. 01/31/18: See Dr. Rivas's note 02/01/18: POD#4 and 3. Doing better. HR down. Stoma starting to function. Will start clear diet and come down on IV fluids today. He should start mobilizing 3rd spaced fluids today. Urinating without problems. Continue ambulation, IS, pulmonary hygiene, PT/OT, lovenox, PPI, etc. Condition Stable. Time Spent: < 30 min Exam Sepsis Risk: Sepsis Risk ROE CERVANTES MD Feb 01, 2018 08:02
[2018-02-01] MEDS: KETOROLAC 30 MG/ML VIAL IVP SCH ×3 (08:35→21:26)
[2018-02-01] MEDS: PANTOPRAZOLE SOD 40 MG IV VIAL IVP SCH (08:36)
[2018-02-01] MEDS: ENOXAPARIN 40 MG/0.4ML SYR SC SCH (08:37)
--- NOTE | 2018-02-01 12:19 | Medical Nutrition Therapy ---
Physical Findings Physical Appearance: Obese BMI 30-39 Skin Appearance Skin Appearance: Edema Edema Location Modifier: Both Edema Location: Ankle Type of Edema: Degree of Edema: Gastrointestinal Symptoms GI Symtoms: Nausea Tube Present: Bowel Sounds: Recent Bowel Pattern: Stool Characteristics: Nutritional Diagnosis Nutritional Risk Acuity 1: NPO/CL > 3 days Nutritional Risk Acuity 2: GI Malabsorption (colostomy takedown) Nutritional Risk Acuity 3: Nausea Past Medical History: Hx of colectomy and appendectomy Nutritional Acuity: 1-High Nutrition Diagnosis: Altered GI Function Nutrition Etiology: Physiological Causes Nutrition Problem/Etiology/Sym: Tltered GI function r/t physiological causes AEB colostomy takedown Adjusted Energy Requirement Re: 2500 (HB adj for obesity) Protein Requirement: 95 (1.1gm/kgh IBW) Fluid Requirement: 2500 (1ml/kcal) Diet Type: Clear Liquids Nutrition Intervention: Incr diet as tolerated Nutritional Needs Comment: Offer clear liquid supplement. Nutrition Monitoring & Eval RD Patient Assessment Time: [address] Assessment Type: RD Assessment Patient Nutrition Acuity: 1-High Follow Up Date: Feb 04, 2018 Nutritional Comment: 01/29. Admitted for colostomy takedown. Surgery went well, but pt experiencing pain. Pt is NPO. Low Hgb 11.7, Hct 35.6, and calcium 7.9. Pt is 74in, 239lbs, with a BMI of 30.7, placing BMI in obese class 1. Increase the diet as tolerated, will cont to monitor labs. MR 01/29 16:00- Pt cont NPO Will cont to monitor. BK 02/01. Pt now experiencing nausea. Diet switched to CL this morning. No new labs available. Offer clear liquid supplements. Will cont to monitor pt diet and labs. DIEGO PALMAA Feb 01, 2018 10:53
[2018-02-01 14:20] VITALS: BP 125/74
[2018-02-01 19:08] VITALS: BP 125/87
[2018-02-01] MEDS: NICOTINE 14 MG/24 HR PATCH TD SCH (21:27)
[2018-02-01] MEDS: PATCH REMOVAL 1 EA TP SCH (21:28)
[2018-02-01 23:31] VITALS: BP 138/83
[2018-02-02] MEDS: HYDROmorphone PCA 6 MG/30 ML IV PRN (00:35)
[2018-02-02] MEDS: KETOROLAC 30 MG/ML VIAL IVP SCH (02:19)
[2018-02-02] MEDS: ACETAMINOPHEN(*)1000 MG/100 ML 100 ML IVPB SCH (02:19)
[2018-02-02 02:30] VITALS: BP 143/90
[2018-02-02] MEDS: DIAZEPAM 50 MG/10 ML MDV IVP PRN (02:48)
[2018-02-02] MEDS: PIPERACILLIN/TAZO*3.375GM VIAL 3.375 GM in NS(*) 0.9% 100 ML ADDVANT BAG 100 ML IVPB SCH (06:27)
--- NOTE | 2018-02-02 07:14 | General Surgery Progress Note ---
Subjective Progress Notes Subjective Main complaint is that he isn't sleeping well at night. Pain well controlled. Tolerating clear diet. No bloating, N/V. Good appetite. Physical Exam Vital Signs Date Time Temp Pulse Resp B/P (MAP) Pulse Ox O2 Delivery O2 Flow Rate FiO2 02/02/18 06:32 16 99 02/02/18 02:30 98.6 97 143/90 (107) Nasal Cannula 2.0 General Appearance: Alert, Awake, No Acute Distress, Afebrile GI: Other (Soft, appropriate postop TTP, dressings and prevena vac dressing are intact and dry with good seal. Stoma is pink and functional with liquid and gas in bag.) Extremities: Warm, Perfused Result Diagram: 01/31/18 0740 01/31/18 0740 Assessment and Plan Problems: (1) S/P colostomy takedown Status: Acute Assessment & Plan: 01/29/18: POD#1 s/p robotic colostomy takedown. Seems to be doing well. 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 The colon appeared to have good blood flow based on colon and ICG perfusion intraoperatively but it was this way during his Mireles's procedure as well. If the tissue all looks pink then will proceed with routine postop care. If it is ischemic then will need to make a laparotomy incision, take down the anastomosis, and take down the hepatic flexure to mobilize more colon to facilitate and new anastomosis more proximal in his colon. I mobilized as much colon as was possible through the standard robotic port site placement and there was no tension on the anastomosis but given his previous postop recovery I think assessing the anastomosis for adequate perfusion is prudent with revision of the anastomosis now before a leak and normal postoperative swelling/adhesions makes a reoperation more difficult in a week or two. He seems to understand this reasoning and is willing to proceed with this plan this afternoon. 01/30/18: POD#2 s/p robotic colostomy takedown POD#1 s/p flexible proctoscopy, ex-lap, anastomosis takedown, further colon mobilization including hepatic flexure and part of ascending colon, re- anastomosis, diverting loop ileostomy. Distal 10cm of colon above anastomosis was ischemic on proctoscopy so this was removed and anastomosis revised after mobilizing more colon. Gave him a protective diverting loop ileostomy. Doing fairly well this morning. Will remove bird at patient's request but I warned him about possibility of urinary retention and the bird may have to be replaced later today if he's unable to urinate. Will have him save all urine so we can monitor urine output. He's tachycardic, I suspect he's a little dry after his multi-hour laparotomy yesterday, will fluid bolus him as needed. UOP is adequate. Some of the tachycardia may be pain related. BPs are mildly elevated. Continue bowel rest until postop ileus resolves. Start lovenox tomorrow. May start toradol tomorrow as well if he needs further pain control measures. Start ambulating today, IS, pulmonary hygiene, PPI, etc. 01/31/18: See Dr. Rivas's note 02/01/18: POD#4 and 3. Doing better. HR down. Stoma starting to function. Will start clear diet and come down on IV fluids today. He should start mobilizing 3rd spaced fluids today. Urinating without problems. Continue ambulation, IS, pulmonary hygiene, PT/OT, lovenox, PPI, etc. 02/02/18: POD#5, 4. Continued improvement. Vitals all normal. No fevers. Will stop abx. Will start regular diet today. Stop IV fluids and TEARER PRESS CLIPPING and convert to PO meds. Increase activity, ambulation, IS, pulmonary hygiene, PT/OT , lovenox, PPI, etc. Condition Stable. Time Spent: < 30 min Exam Sepsis Risk: No Definite Risk ROE CERVANTES MD Feb 02, 2018 07:14
[2018-02-02 07:59] VITALS: BP 113/69
[2018-02-02] MEDS: ENOXAPARIN 40 MG/0.4ML SYR SC SCH (08:45)
[2018-02-02] MEDS: VENLAFAXINE XR 75 MG CAPCR PO SCH (08:46)
[2018-02-02] MEDS: PANTOPRAZOLE SOD 40 MG TABEC PO SCH (08:46)
[2018-02-02 14:49] VITALS: BP 142/84
[2018-02-02 19:26] VITALS: BP 159/93
[2018-02-02] MEDS: ONDANSETRON 4 MG/2 ML VIAL IVP PRN (20:06)
[2018-02-02] MEDS: IBUPROFEN 600 MG TAB PO PRN (20:06)
[2018-02-02] MEDS: MIRTAZAPINE 15 MG TAB PO SCH (20:17)
[2018-02-02] MEDS: PATCH REMOVAL 1 EA TP SCH (22:00)
[2018-02-02] MEDS: NICOTINE 14 MG/24 HR PATCH TD SCH (22:39)
[2018-02-02 22:47] VITALS: BP 151/92
[2018-02-03] MEDS: ONDANSETRON 4 MG/2 ML VIAL IVP PRN (01:15)
[2018-02-03 02:45] VITALS: BP 115/82
[2018-02-03 09:34] VITALS: BP 145/86
[2018-02-03] MEDS: PANTOPRAZOLE SOD 40 MG TABEC PO SCH (09:49)
[2018-02-03] MEDS: VENLAFAXINE XR 75 MG CAPCR PO SCH (09:49)
[2018-02-03] MEDS: ENOXAPARIN 40 MG/0.4ML SYR SC SCH (09:49)
--- NOTE | 2018-02-03 11:16 | General Surgery Progress Note ---
Subjective Progress Notes Subjective No complaints. Physical Exam Vital Signs Date Time Temp Pulse Resp B/P (MAP) Pulse Ox O2 Delivery O2 Flow Rate FiO2 02/03/18 10:08 94 Nasal Cannula 1.0 02/03/18 09:49 98.6 02/03/18 09:34 82 16 145/86 (105) Intake and Output 02/03/18 07:00 Intake Total 1245 ml Output Total 2625 ml Balance -1380 ml Intake Oral 160 ml IV Total 1085 ml Output Urine Total 1475 ml Stool Total 1150 ml General Appearance: Alert, Awake, No Acute Distress, Afebrile GI: Other (Soft, appropriate postop TTP, dressings all removed. Incisions are all clean and dry. No drainage. No erythema. Stoma is pink and functional.) Extremities: Warm, Perfused Result Diagram: 01/31/1840 01/31/18 0740 Assessment and Plan Problems: (1) S/P colostomy takedown Status: Acute Assessment & Plan: 01/29/18: POD#1 s/p robotic colostomy takedown. Seems to be doing well. 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 The colon appeared to have good blood flow based on colon and ICG perfusion intraoperatively but it was this way during his Mireles's procedure as well. If the tissue all looks pink then will proceed with routine postop care. If it is ischemic then will need to make a laparotomy incision, take down the anastomosis, and take down the hepatic flexure to mobilize more colon to facilitate and new anastomosis more proximal in his colon. I mobilized as much colon as was possible through the standard robotic port site placement and there was no tension on the anastomosis but given his previous postop recovery I think assessing the anastomosis for adequate perfusion is prudent with revision of the anastomosis now before a leak and normal postoperative swelling/adhesions makes a reoperation more difficult in a week or two. He seems to understand this reasoning and is willing to proceed with this plan this afternoon. 01/30/18: POD#2 s/p robotic colostomy takedown POD#1 s/p flexible proctoscopy, ex-lap, anastomosis takedown, further colon mobilization including hepatic flexure and part of ascending colon, re- anastomosis, diverting loop ileostomy. Distal 10cm of colon above anastomosis was ischemic on proctoscopy so this was removed and anastomosis revised after mobilizing more colon. Gave him a protective diverting loop ileostomy. Doing fairly well this morning. Will remove bird at patient's request but I warned him about possibility of urinary retention and the bird may have to be replaced later today if he's unable to urinate. Will have him save all urine so we can monitor urine output. He's tachycardic, I suspect he's a little dry after his multi-hour laparotomy yesterday, will fluid bolus him as needed. UOP is adequate. Some of the tachycardia may be pain related. BPs are mildly elevated. Continue bowel rest until postop ileus resolves. Start lovenox tomorrow. May start toradol tomorrow as well if he needs further pain control measures. Start ambulating today, IS, pulmonary hygiene, PPI, etc. 01/31/18: See Dr. Rivas's note 02/01/18: POD#4 and 3. Doing better. HR down. Stoma starting to function. Will start clear diet and come down on IV fluids today. He should start mobilizing 3rd spaced fluids today. Urinating without problems. Continue ambulation, IS, pulmonary hygiene, PT/OT, lovenox, PPI, etc. 02/02/18: POD#5, 4. Continued improvement. Vitals all normal. No fevers. Will stop abx. Will start regular diet today. Stop IV fluids and ELECTRIC CELL TENDER and convert to PO meds. Increase activity, ambulation, IS, pulmonary hygiene, PT/OT, lovenox, PPI, etc. 02/03/18: POD#6,5. Doing well. Tolerating diet. Vitals all normal. No fevers. Surgical sites all look good. Will plan on d/c to home tomorrow. Condition Stable. Time Spent: < 30 min Exam Sepsis Risk: No Definite Risk ROE CERVANTES MD Feb 03, 2018 11:16
[2018-02-03 12:25] VITALS: BP 157/98
[2018-02-03] MEDS: IBUPROFEN 600 MG TAB PO PRN ×2 (14:30→21:36)
[2018-02-03 15:23] VITALS: BP 139/89
[2018-02-03 18:50] VITALS: BP 159/94
[2018-02-03] MEDS: NICOTINE 14 MG/24 HR PATCH TD SCH (21:36)
[2018-02-03] MEDS: MIRTAZAPINE 15 MG TAB PO SCH (21:36)
[2018-02-03] MEDS: PATCH REMOVAL 1 EA TP SCH (21:38)
[2018-02-03 23:32] VITALS: BP 145/90
[2018-02-04] MEDS: IBUPROFEN 600 MG TAB PO PRN ×3 (03:44→21:43)
[2018-02-04 03:46] VITALS: BP 112/78
--- NOTE | 2018-02-04 07:18 | General Surgery Progress Note ---
Subjective Progress Notes Subjective No new complaints. Pain is main complaint but controlled with PO meds. Tolerating diet with good stoma output. Main issue is hypoxia on room air. He was without his supplemental O2 while showering yesterday and his SaO2 dropped into the 60s and he became severely symptomatic. He can't afford the $500-600 upfront costs for home O2. Physical Exam Vital Signs Date Time Temp Pulse Resp B/P (MAP) Pulse Ox O2 Delivery O2 Flow Rate FiO2 02/04/18 04:00 63 93 Nasal Cannula 1.0 02/04/18 03:46 97.6 12 112/78 (89) Intake and Output 02/04/18 07:00 Intake Total 355 ml Output Total 1600 ml Balance -1245 ml Intake Oral 355 ml Output Urine Total 1450 ml Stool Total 150 ml General Appearance: Alert, Awake, No Acute Distress, Afebrile GI: Other (Soft, appropriate postop TTP, incisions all look good without erythema or drainage. Stoma is pink and functional.) Extremities: Warm, Perfused Result Diagram: 01/31/18 0740 01/31/18 0740 Assessment and Plan Problems: (1) S/P colostomy takedown Status: Acute Assessment & Plan: 01/29/18: POD#1 s/p robotic colostomy takedown. Seems to be doing well. 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 The colon appeared to have good blood flow based on colon and ICG perfusion intraoperatively but it was this way during his Mireles's procedure as well. If the tissue all looks pink then will proceed with routine postop care. If it is ischemic then will need to make a laparotomy incision, take down the anastomosis, and take down the hepatic flexure to mobilize more colon to facilitate and new anastomosis more proximal in his colon. I mobilized as much colon as was possible through the standard robotic port site placement and there was no tension on the anastomosis but given his previous postop recovery I think assessing the anastomosis for adequate perfusion is prudent with revision of the anastomosis now before a leak and normal postoperative swelling/adhesions makes a reoperation more difficult in a week or two. He seems to understand this reasoning and is willing to proceed with this plan this afternoon. 01/30/18: POD#2 s/p robotic colostomy takedown POD#1 s/p flexible proctoscopy, ex-lap, anastomosis takedown, further colon mobilization including hepatic flexure and part of ascending colon, re- anastomosis, diverting loop ileostomy. Distal 10cm of colon above anastomosis was ischemic on proctoscopy so this was removed and anastomosis revised after mobilizing more colon. Gave him a protective diverting loop ileostomy. Doing fairly well this morning. Will remove bird at patient's request but I warned him about possibility of urinary retention and the bird may have to be replaced later today if he's unable to urinate. Will have him save all urine so we can monitor urine output. He's tachycardic, I suspect he's a little dry after his multi-hour laparotomy yesterday, will fluid bolus him as needed. UOP is adequate. Some of the tachycardia may be pain related. BPs are mildly elevated. Continue bowel rest until postop ileus resolves. Start lovenox tomorrow. May start toradol tomorrow as well if he needs further pain control measures. Start ambulating today, IS, pulmonary hygiene, PPI, etc. 01/31/18: See Dr. Rivas's note 02/01/18: POD#4 and 3. Doing better. HR down. Stoma starting to function. Will start clear diet and come down on IV fluids today. He should start mobilizing 3rd spaced fluids today. Urinating without problems. Continue ambulation, IS, pulmonary hygiene, PT/OT, lovenox, PPI, etc. 02/02/18: POD#5, 4. Continued improvement. Vitals all normal. No fevers. Will stop abx. Will start regular diet today. Stop IV fluids and LAND EXAMINER and convert to PO meds. Increase activity, ambulation, IS, pulmonary hygiene, PT/OT, lovenox, PPI, etc. 02/03/18: POD#6,5. Doing well. Tolerating diet. Vitals all normal. No fevers. Surgical sites all look good. Will plan on d/c to home tomorrow. 02/04/18: POD#7, 6. Doing well. Ready to go home from GI standpoint but needs home O2 for safe discharge but he can't afford home O2. Will ask case management to see him and see about resources to help him with home O2 costs or alternatively he could potentially go up to ECF to continue postop recovery and physical stamina/endurance until he no longer requires supplemental O2. Condition Stable. Time Spent: < 30 min Exam Sepsis Risk: No Definite Risk ROE CERVANTES MD Feb 04, 2018 07:18
[2018-02-04] MEDS: PANTOPRAZOLE SOD 40 MG TABEC PO SCH (09:08)
[2018-02-04] MEDS: VENLAFAXINE XR 75 MG CAPCR PO SCH (09:09)
[2018-02-04] MEDS: ENOXAPARIN 40 MG/0.4ML SYR SC SCH (09:11)
[2018-02-04 09:12] VITALS: BP 143/102
[2018-02-04 12:02] VITALS: BP 146/90
[2018-02-04] MEDS: ONDANSETRON 4 MG/2 ML VIAL IVP PRN (13:13)
--- NOTE | 2018-02-04 15:12 | Medical Nutrition Therapy ---
Nutritional Diagnosis Nutritional Risk Acuity 2: GI Malabsorption (colostomy takedown) Past Medical History: Hx of colectomy and appendectomy Nutritional Acuity: 2-Moderate Nutrition Diagnosis: Altered GI Function Nutrition Etiology: Physiological Causes Nutrition Problem/Etiology/Sym: Tltered GI function r/t physiological causes AEB colostomy takedown Adjusted Energy Requirement Re: 2500 (HB adj for obesity) Protein Requirement: 95 (1.1gm/kgh IBW) Fluid Requirement: 2500 (1ml/kcal) Diet Type: Diet as Tolerated NISA/REG Nutrition Intervention: Cont diet as ordered, Encourage intake Nutritional Needs Comment: Offer clear liquid supplement. Nutrition Monitoring & Eval RD Patient Assessment Time: [address] Assessment Type: RD Re-Assessment Patient Nutrition Acuity: 2-Moderate Follow Up Date: Feb 09, 2018 Nutritional Comment: 01/29. Admitted for colostomy takedown. Surgery went well, but pt experiencing pain. Pt is NPO. Low Hgb 11.7, Hct 35.6, and calcium 7.9. Pt is 74in, 239lbs, with a BMI of 30.7, placing BMI in obese class 1. Increase the diet as tolerated, will cont to monitor labs. MR 01/29 16:00- Pt cont NPO Will cont to monitor. BK 02/01. Pt now experiencing nausea. Diet switched to CL this morning. No new labs available. Offer clear liquid supplements. Will cont to monitor pt diet and labs. MR 02/04. Pt is now NISA, seems to be tolerating diet and is consuming 25-100% of regular meals. No new labs available for pt. Pt may go to ECF floor to cont recovery until O2 is not required. Will cont to monitor pt intake. MARCIA PALMA Feb 04, 2018 09:35
[2018-02-04 19:10] VITALS: BP 142/94
[2018-02-04] MEDS: NICOTINE 14 MG/24 HR PATCH TD SCH (21:43)
[2018-02-04] MEDS: MIRTAZAPINE 15 MG TAB PO SCH (21:43)
[2018-02-04] MEDS: PATCH REMOVAL 1 EA TP SCH (21:45)
[2018-02-04 23:21] VITALS: BP 155/92
[2018-02-05 03:40] VITALS: BP 146/90
[2018-02-05] MEDS ORDERED: PER PO (08:09)
[2018-02-05] MEDS ORDERED: IBUP600T22 PO (08:09)
[2018-02-05 08:11] VITALS: BP 140/91
--- NOTE | 2018-02-05 08:13 | Short(Outpt) Discharge Summary ---
Discharge Summary Reason for Hosp/Final Diag: (1) S/P colostomy takedown Status: Acute Hospital Course & Plan: 01/29/18: POD#1 s/p robotic colostomy takedown. Seems to be doing well. 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 The colon appeared to have good blood flow based on colon and ICG perfusion intraoperatively but it was this way during his Mireles's procedure as well. If the tissue all looks pink then will proceed with routine postop care. If it is ischemic then will need to make a laparotomy incision, take down the anastomosis, and take down the hepatic flexure to mobilize more colon to facilitate and new anastomosis more proximal in his colon. I mobilized as much colon as was possible through the standard robotic port site placement and there was no tension on the anastomosis but given his previous postop recovery I think assessing the anastomosis for adequate perfusion is prudent with revision of the anastomosis now before a leak and normal postoperative swelling/adhesions makes a reoperation more difficult in a week or two. He seems to understand this reasoning and is willing to proceed with this plan this afternoon. 01/30/18: POD#2 s/p robotic colostomy takedown POD#1 s/p flexible proctoscopy, ex-lap, anastomosis takedown, further colon mobilization including hepatic flexure and part of ascending colon, re- anastomosis, diverting loop ileostomy. Distal 10cm of colon above anastomosis was ischemic on proctoscopy so this was removed and anastomosis revised after mobilizing more colon. Gave him a protective diverting loop ileostomy. Doing fairly well this morning. Will remove bird at patient's request but I warned him about possibility of urinary retention and the bird may have to be replaced later today if he's unable to urinate. Will have him save all urine so we can monitor urine output. He's tachycardic, I suspect he's a little dry after his multi-hour laparotomy yesterday, will fluid bolus him as needed. UOP is adequate. Some of the tachycardia may be pain related. BPs are mildly elevated. Continue bowel rest until postop ileus resolves. Start lovenox tomorrow. May start toradol tomorrow as well if he needs further pain control measures. Start ambulating today, IS, pulmonary hygiene, PPI, etc. 01/31/18: See Dr. Rivas's note 02/01/18: POD#4 and 3. Doing better. HR down. Stoma starting to function. Will start clear diet and come down on IV fluids today. He should start mobilizing 3rd spaced fluids today. Urinating without problems. Continue ambulation, IS, pulmonary hygiene, PT/OT, lovenox, PPI, etc. 02/02/18: POD#5, 4. Continued improvement. Vitals all normal. No fevers. Will stop abx. Will start regular diet today. Stop IV fluids and GAMING DIRECTOR and convert to PO meds. Increase activity, ambulation, IS, pulmonary hygiene, PT/OT, lovenox, PPI, etc. 02/03/18: POD#6,5. Doing well. Tolerating diet. Vitals all normal. No fevers. Surgical sites all look good. Will plan on d/c to home tomorrow. 02/04/18: POD#7, 6. Doing well. Ready to go home from GI standpoint but needs home O2 for safe discharge but he can't afford home O2. Will ask case management to see him and see about resources to help him with home O2 costs or alternatively he could potentially go up to ECF to continue postop recovery and physical stamina/endurance until he no longer requires supplemental O2. 02/05/18: POD#8, 7. Doing well. No issues currently. Will d/c to home on home O2. He discussed home O2 with the O2 company and he thinks he can afford it for a month or so. Departure Discharge to: Home, Self Care Discharge Instructions Home Meds Active Scripts Oxycodone/Acetaminophen (OXYCODONE/ACETAMINOPHEN 5MG/325 MG) 5 Mg/325 Mg Tab, 1- 2 TAB PO Q4H PRN for PAIN, #40 TAB 0 Refills Prov:ROE CERVANTES MD 02/05/18 Ibuprofen (IBUPROFEN) 600 Mg Tablet, 1 TAB PO QID PRN for PAIN, #30 TAB 0 Refills Prov:ROE CERVANTES MD 02/05/18 Reported Medications Venlafaxine Hcl (VENLAFAXINE HCL ER) 150 Mg Tab.er.24, 150 MG PO QDAY 01/29/18 Mirtazapine (MIRTAZAPINE) 15 Mg Tablet, 15 MG PO QHS 01/08/18 Discontinued Reported Medications Venlafaxine Hcl (VENLAFAXINE HCL ER) 75 Mg Cap.er.24h, 75 MG PO QDAY 12/23/17 Follow up Referrals: General Surgery - 02/12/18 @ Surgery, General with ROE CERVANTES MD You have a follow up appointment scheduled with Dr. Cervantes on 02/12/18, at 11:30am. Diet: Regular Activity: No Heavy Lifting Special Instructions: You may leave the incisions open to air and shower as desired but don't immerse the incisions for 2 weeks. Avoid any activity that involves straining or lifting more than 10 pounds for 6 weeks after surgery. ROE CERVANTES MD Feb 05, 2018 08:13
[2018-02-05] MEDS: VENLAFAXINE XR 75 MG CAPCR PO SCH (08:25)
[2018-02-05] MEDS: ENOXAPARIN 40 MG/0.4ML SYR SC SCH (08:25)
[2018-02-05] MEDS: PANTOPRAZOLE SOD 40 MG TABEC PO SCH (08:26)
[2018-02-05] MEDS: IBUPROFEN 600 MG TAB PO PRN (12:44)
[2018-02-08] MEDS ORDERED: PER PO (11:41)
[2018-02-08] MEDS ORDERED: OXYC-854 PO (11:42)
== END 2018-02-05 13:55 | disposition home or self-care (01) | DRG 330 ==
LOC: OR 00:11 → MED 22:38
PROVIDERS: ADMIT Surgery; ATTEND Surgery
PROC: 0WQF4ZZ Repair Abdominal Wall, Percutaneous Endoscopic Approach (ICD-10-PCS; 2018-01-28)
PROC: 8E0W4CZ Robotic Assisted Procedure of Trunk Region, Percutaneous Endoscopic Approach (ICD-10-PCS; 2018-01-28)
PROC: 0DNE4ZZ Release Large Intestine, Percutaneous Endoscopic Approach (ICD-10-PCS; 2018-01-28)
PROC: 0DN84ZZ Release Small Intestine, Percutaneous Endoscopic Approach (ICD-10-PCS; 2018-01-28)
PROC: 0DNU4ZZ Release Omentum, Percutaneous Endoscopic Approach (ICD-10-PCS; 2018-01-28)
PROC: 0DNW4ZZ Release Peritoneum, Percutaneous Endoscopic Approach (ICD-10-PCS; 2018-01-28)
PROC: 0DBN4ZZ Excision of Sigmoid Colon, Percutaneous Endoscopic Approach (ICD-10-PCS; principal; 2018-01-28 09:53)
PROC: 0DBU0ZZ Excision of Omentum, Open Approach (ICD-10-PCS; 2018-01-29)
PROC: 0DBM0ZZ Excision of Descending Colon, Open Approach (ICD-10-PCS; 2018-01-29)
PROC: 0DBL0ZZ Excision of Transverse Colon, Open Approach (ICD-10-PCS; 2018-01-29)
PROC: 0D1B0Z4 Bypass Ileum to Cutaneous, Open Approach (ICD-10-PCS; 2018-01-29)
PROC: 0DJD8ZZ Inspection of Lower Intestinal Tract, Via Natural or Artificial Opening Endoscopic (ICD-10-PCS; 2018-01-29)
DX: Z43.3 Encounter for attention to colostomy (principal); K91.89 Other postprocedural complications and disorders of digestive system; I97.89 Other postprocedural complications and disorders of the circulatory system, not elsewhere classified; K56.7 Ileus, unspecified; K66.0 Peritoneal adhesions (postprocedural) (postinfection); I95.81 Postprocedural hypotension; R09.02 Hypoxemia; E86.1 Hypovolemia; R00.0 Tachycardia, unspecified; K42.9 Umbilical hernia without obstruction or gangrene; E66.9 Obesity, unspecified; Y83.8 Other surgical procedures as the cause of abnormal reaction of the patient, or of later complication, without mention of misadventure at the time of the procedure; Y73.3 Surgical instruments, materials and gastroenterology and urology devices (including sutures) associated with adverse incidents; Y92.230 Patient room in hospital as the place of occurrence of the external cause; Z68.30 Body mass index [BMI] 30.0-30.9, adult
CPT/HCPCS: 36415; 82310; 82374; 82435; 82565; 82947; 84132; 84295; 84520; 85025; 88304; 88307; 97161; 97166; A4406; C9113; J0131; J0295; J1100; J1170; J1650; J1885; J2001; J2250; J2270; J2405; J2543; J2550; J2704; J2795; J3010; J3360; J3490; J7030; J7050; J7120; P9045

== ENCOUNTER → 2018-03-18 | Outpatient (CLI) | payer SELFPAY ==
[2018-01-29 09:30] VITALS: BMI 30.7
[~2018-03-18] MED LIST changes: -ACETAMINOPHEN 500 MG TAB PO ONE; -AMPICILLIN/SULBACT (*) 3 GM VL 3 GM in NS(*) 0.9% 100 ML BAG 100 ML IVPB ONE; +DIATRIZOATE MEGL/DIATRIZOA SOD 120 ML SOLN PO ONE; -FAMOTIDINE 20 MG TAB PO ONE; +IBUP600T22 PO; -LIDOCAINE/SOD BICARB 8.4% SYR ID ONE; -MIDAZOLAM 2 MG/2 ML VIAL IVP PRN; -NORMOSOL R SOLN(*) 1000 ML BAG 1,000 ML IV PRN; -PREGABALIN 150 MG CAPSULE PO ONE; +VENL150T10 PO
--- NOTE | 2018-03-18 15:13 | RADIOLOGY IMAGING REPORT ---
FACILITY: [facility] - [place] PATIENT NAME: Dillon Kramer : 1975 MR: [id number] V: [id number] EXAM DATE: ORDERING PHYSICIAN: ROE CERVANTES TECHNOLOGIST: Location: [facility] [place] Patient: Dillon Kramer : 1975 Visit/Account:[id number] Date of Sevice: 03/18/2018 BARIUM ENEMA (BE) HISTORY: Post anastomotic Gastrografin barium study prior to re-anastomosis. ADDITIONAL HISTORY: Previous sigmoid diverticulitis with resection of sigmoid colon and re-anastomos is at the rectum with a loop ileostomy Findings: The rectal tube was placed and balloon inflated. Gastrografin with a 2/3 Gastrografin/1/3 water mixt ure for a total of 960 mL retrograde filling rectal sigmoid colon up to the loop ileostomy with drain age into the bag. The study demonstrated no leakage at the anastomosis. There was a concentric narr owing at the anastomosis with the maximal luminal diameter of approximately 9 mm. This represents ap proximately a 75% luminal narrowing when compared to the remainder of the rectum. There is a small p osterior diverticular outpouching. The remainder of the opacified colon is unremarkable. IMPRESSION: 1. Negative Gastrografin barium study for any evidence of anastomotic leak. Concentric short segmen t 75% luminal narrowing noted at the anastomosis. Fluoroscopic time of 1.7 minutes. AK 104.5mGy Report Dictated By: Sadiq Gracia MD at 03/18/2018 2:56 PM Report E-Signed By: Sadiq Gracia MD at 03/18/2018 3:09 PM WSN:ANTONIO
== END ==
LOC: RAD 00:42
PROVIDERS: ATTEND Surgery
DX: K91.89 Other postprocedural complications and disorders of digestive system (principal); Z98.0 Intestinal bypass and anastomosis status
CPT/HCPCS: 74270

== ENCOUNTER 2018-04-01 00:39 | Inpatient (IN) | payer SELFPAY ==
[2018-01-29 09:30] VITALS: Ht 188 cm; Wt 107.0 kg
[2018-04-01] VITALS (11 sets, daily range): BP systolic 115–136; BP diastolic 73–95
[~2018-04-01] VITALS: Ht 188 cm; Wt 107.0 kg
[~2018-04-01 00:39] MED LIST changes: -DIATRIZOATE MEGL/DIATRIZOA SOD 120 ML SOLN PO ONE
[2018-04-01] MEDS ORDERED: PROPOFOL EMUL(*) 10MG/ML 20 ML 20 ML ONE (12:16)
[2018-04-01] MEDS ORDERED: DEXAMETHASONE SOD 4 MG/ML VIAL ONE (12:16)
[2018-04-01] MEDS ORDERED: ONDANSETRON 4 MG/2 ML VIAL ONE ×2 (12:16→18:00)
[2018-04-01] MEDS ORDERED: SUGAMMADEX SOD 200 MG/2 ML SDV ONE (12:16)
[2018-04-01] MEDS ORDERED: LIDOCAINE MPF 1% 5 ML VIAL ONE (12:16)
[2018-04-01] MEDS ORDERED: fentaNYL CITR 250 MCG/5 ML AMP ONE (12:25)
[2018-04-01 13:34] LABS: PLATELET COUNT, AUTOMATED 272 K/uL (150-450)
[2018-04-01] MEDS ORDERED: PREGABALIN 150 MG CAPSULE PO ONE (14:15)
[2018-04-01] MEDS ORDERED: AMPICILLIN/SULBACT (*) 3 GM VL 3 GM in NS(*) 0.9% 100 ML BAG 100 ML IVPB ONE (14:15)
[2018-04-01] MEDS ORDERED: LIDOCAINE/SOD BICARB 8.4% SYR ID ONE (14:15)
[2018-04-01] MEDS ORDERED: NORMOSOL R SOLN(*) 1000 ML BAG 1,000 ML IV PRN (14:15)
[2018-04-01] MEDS ORDERED: MIDAZOLAM 2 MG/2 ML VIAL IVP PRN (14:15)
[2018-04-01] MEDS ORDERED: ACETAMINOPHEN 500 MG TAB PO ONE (14:15)
[2018-04-01] MEDS ORDERED: FAMOTIDINE 20 MG TAB PO ONE (14:15)
[2018-04-01] MEDS ORDERED: ROPIVACAINE 0.5% 20 ML VIAL ONE (14:37)
[2018-04-01] MEDS ORDERED: ROCURONIUM BROM 10 MG/ML 10 ML ONE (16:35)
[2018-04-01] MEDS ORDERED: KETOROLAC 30 MG/ML VIAL ONE (16:56)
[2018-04-01] MEDS ORDERED: fentaNYL CITR 100 MCG/2 ML AMP ONE ×2 (17:19→17:29)
[2018-04-01] MEDS ORDERED: HYDROmorphone HCL 2 MG/ML SDV ONE (17:29)
[2018-04-01] MEDS ORDERED: FLUSH 10 ML SYR IVP PRN (17:50)
[2018-04-01] MEDS ORDERED: NALOXONE HCL 0.4 MG/ML VIAL IVP PRN (17:50)
[2018-04-01] MEDS: ONDANSETRON 4 MG/2 ML VIAL IVP PRN (18:03)
--- NOTE | 2018-04-01 18:14 | Post Operative Progress Note ---
Post Operative Progress Note Date: Apr 01, 2018 Time: 18:04 Surgeon: Jacque Dictation number: [id number] Anesthesia: GETA by Dr. Baker Pre-Op Diagnosis: Ileostomy Post-Op Diagnosis: ARIADNE Findings: Anastomosis looks good, c-scope easily passed into colon through anastomosis Procedure(s): Flexible proctoscopy Ileostomy takedown Specimen Removed:(May be N/A): Ileostomy Complications: None Fluids: See anesthesia record Estimated Blood Loss: Minimal Date OP Note Dictated: Apr 01, 2018 Time OP Note Dictated: 18:06 ROE CERVANTES MD Apr 01, 2018 18:14
[2018-04-01] MEDS: NS(*) 0.9% 1000 ML BAG 1,000 ML IV PRN (19:24)
[2018-04-01] MEDS: HYDROmorphone PCA 6 MG/30 ML IV PRN (19:24)
--- NOTE | 2018-04-01 20:28 | OPERATIVE REPORT 1 ---
EVENT DATE: April 01, 2018 SURGEON: Garfield Santillan MD ANESTHESIOLOGIST: Garfield Baker MD ANESTHESIA: General endotracheal anesthesia. PREOPERATIVE DIAGNOSIS Ileostomy. POSTOPERATIVE DIAGNOSIS Ileostomy. PROCEDURES PERFORMED 1. Flexible proctoscopy with inspection of the anastomosis. 2. Ileostomy takedown. COMPLICATIONS None. CONDITION Stable. BLOOD LOSS Minimal. FINDINGS On proctoscopy, the anastomosis appeared well healed and wide open. I did not have any problems getting the scope to pass into the colon through the anastomosis. INDICATIONS This is a 42-year-old gentleman who I have been taking care of for several months, initially with complicated diverticulitis that failed to respond to conservative management, and ultimately required a Ken procedure. We then brought him back after he healed from that for colostomy takedown, but he suffered from ischemia of the colon at the level of the anastomosis which required reexploration and more bowel resection with reanastomosis, and then I gave him a loop ileostomy. He is now requesting to have the loop ileostomy reversed. DESCRIPTION OF PROCEDURE The patient was brought to the operating room and placed supine on the operating table. General endotracheal anesthesia was administered, and he was placed in the [place] and his legs raised up. I obtained a colonoscope and tested it to ensure it was completely functional. I lubricated it and inserted it into his rectum through his anus. I advanced it until I could see the anastomosis and I could see some brendan and even silk sutures, but the tissues looked healthy, and the anastomosis looked to be intact. I then advanced the scope past the anastomosis into the descending portion of his colon, which originally was his transverse colon. All of the tissue looked nice and healthy and well perfused. The anastomosis was wide open. I then withdrew the scope. He was taken out of the [place] and placed just supine on the operating table. His abdomen was prepped and draped in a sterile fashion. Timeout was completed once again. I anesthetized the skin around the ileostomy and then made an incision at the junction of the mucosa and the skin all the way around and dissected all the way around the ileostomy until it was completely freed up. I initially closed just the ileostomy by sewing the opening with running 4-0 Monocryl sutures and then oversewing it with interrupted 3-0 silk Lembert-type sutures. It looked good, but on palpating the lumen, it felt narrow to me, and I was not happy with it, so I decided to resect the ileostomy and then do a reanastomosis. I made windows in the mesentery just proximally and distally to the suture line and then used the EDILSON stapler with a blue load and divided the small bowel at these points proximally and distally. Less than 10 cm of small bowel were removed. I then used the Harmonic scalpel to divide the mesentery and then passed the specimen off the field. I then laid the ends of the small bowel next to each other so that the staple lines were next to each other and then made enterotomies. I then used the 75 mm stapler with a blue load and created a [id number], functionally end-to-end anastomosis, and then I sewed the conjoined enterotomy with running 4-0 Monocryl sutures. I then oversewed the entire portion of the staple and suture line with interrupted 3-0 Vicryl Lembert-type sutures. I closed the mesenteric defect with running 3-0 Vicryl sutures. The anastomosis was under no tension and appeared well vascularized. The lumen was wide open. I then dropped it back into the abdomen and then closed the muscle with running #1 Prolene sutures. I saw the anterior fascia which I reapproximated with a second layer of #1 Prolene sutures. I then irrigated and dried the wound and loosely closed the skin with a couple of brendan and put a Dora drain through this to allow it to continue to drain. This was sewn to the skin with a 2-0 silk suture. I then cleaned and dried his skin, then placed dry 4 x 4 gauze over this, and taped these into place. He was then awakened and extubated in the operating room and transported to the recovery room in stable condition having tolerated the procedure without any apparent problems. BRITTANY
[2018-04-01] MEDS: PIPERACILLIN/TAZO*3.375GM VIAL 3.375 GM in NS(*) 0.9% 100 ML ADDVANT BAG 100 ML IVPB SCH (20:43)
[2018-04-01] MEDS: KETOROLAC 30 MG/ML VIAL IVP SCH (22:48)
[2018-04-02] VITALS (8 sets, daily range): BP systolic 105–128; BP diastolic 61–78
[2018-04-02] MEDS: ACETAMINOPHEN(*)1000 MG/100 ML 100 ML IVPB SCH ×5 (00:27→23:28)
[2018-04-02] MEDS: HYDROmorphone PCA 6 MG/30 ML IV PRN ×3 (01:43→17:00)
[2018-04-02] MEDS: PIPERACILLIN/TAZO*3.375GM VIAL 3.375 GM in NS(*) 0.9% 100 ML ADDVANT BAG 100 ML IVPB SCH ×4 (02:25→20:19)
[2018-04-02] MEDS: NS(*) 0.9% 1000 ML BAG 1,000 ML IV PRN ×3 (04:59→23:38)
[2018-04-02] MEDS: KETOROLAC 30 MG/ML VIAL IVP SCH (05:00)
[2018-04-02 06:06] LABS: PLATELET COUNT, AUTOMATED 238 K/uL (150-450)
--- NOTE | 2018-04-02 06:50 | General Surgery Progress Note ---
Subjective Progress Notes Subjective Didn't sleep well overnight. He's requesting to have his remeron at bedtime. Also has some pruritis and he's requesting benadryl. He also suffers from "severe anxiety" and is currently not being treated and he's requesting a mental health evaluation while he's here so he can start treatment for this. His abdominal/postop pain is well controlled. No flatus, he did pass some blood from his rectum. Physical Exam Vital Signs Date Time Temp Pulse Resp B/P (MAP) Pulse Ox O2 Delivery O2 Flow Rate FiO2 04/02/18 06:18 16 92 04/02/18 03:26 97.1 04/02/18 02:00 84 116/69 (85) Nasal Cannula 1.0 Intake and Output 04/02/18 07:00 Intake Total 2800 ml Balance 2800 ml Intake Oral 0 ml IV Total 2500 ml Other 300 ml # Voids 2 General Appearance: Alert, Awake, No Acute Distress, Afebrile GI: Other (Soft, appropriate postop TTP. Dressing is C/D/I.) Extremities: Warm, Perfused Result Diagram: 04/02/1852204/02/18522 Assessment and Plan Problems: (1) Status post reversal of ileostomy Status: Acute Assessment & Plan: 04/02/18: POD#1 s/p ileostomy takedown. Doing well from surgical standpoint. He is passing some blood per rectum and his H/H is down a little this morning. Will stop toradol and lovenox and follow this. Will let him have sips/chips today. Will ask for psych eval. Will start remeron at bedtime. Benadryl for itching. Awaiting return of bowel function. Ambulation, IS, pulmonary hygiene, PPI, etc. (2) Anxiety Status: Chronic (3) INSOMNIA, UNSPECIFIED Status: Chronic Condition Stable. Time Spent: < 30 min Exam Sepsis Risk: No Definite Risk ROE CERVANTES MD Apr 02, 2018 06:50
[2018-04-02] MEDS: diphenhydrAMINE 25 MG CAP PO PRN ×2 (08:16→20:21)
[2018-04-02] MEDS: PANTOPRAZOLE SOD 40 MG IV VIAL IVP SCH (08:16)
[2018-04-02] MEDS ORDERED: ENOXAPARIN 40 MG/0.4ML SYR SC SCH (09:00)
--- NOTE | 2018-04-02 11:12 | Medical Nutrition Therapy ---
Nutrition Anthropometrics Height (Inches): 74.00 Height (Calculated Centimeters: 187.821708 Weight (Pounds): 236 Weight (Calculated Kilograms): 107.048 Saulo Nutrition Score: Adequate Saulo Nutrition Risk Score: 21 Dietary Referral Nutrition Risk Factors: Recent Nutrition Impact Nutrition Risk Comment: Physical Findings Physical Appearance: Obese BMI 30-39 Skin Appearance Skin Appearance: Edema Edema Location Modifier: Edema Location: Generalized Type of Edema: Degree of Edema: Gastrointestinal Symptoms GI Symtoms: Change in Bowel Pattern Tube Present: Bowel Sounds: Recent Bowel Pattern: Stool Characteristics: Nutritional Diagnosis Nutritional Risk Acuity 2: GI Malabsorption Past Medical History: Hx of colectomy and appendectomy Nutritional Acuity: 2-Moderate Nutrition Diagnosis: Altered GI Function Nutrition Etiology: Physiological Causes Nutrition Problem/Etiology/Sym: AEB ileostomy takedown Adjusted Energy Requirement Re: 2500 (H-B adj for obesity) Protein Requirement: 96 (.9gm/kg) Fluid Requirement: 2500 (1ml/kcal) Diet Type: NPO (Nothing by Mouth) Nutrition Intervention: Incr diet as tolerated Nutrition Monitoring & Eval Nutrition Goals: Eat 75-100% Meal RD Patient Assessment Time: 30 minutes Patient Nutrition Acuity: 2-Moderate Follow Up Date: Apr 05, 2018 Nutritional Comment: 04/02 Pt admitted for ileostomy takedown. Pt currently NPo with no flatus reported. Alb 4.6. Wt stable from last admit. BMI is in class 1 obsity range. Will cont to monitor. RODRICK WAGNER Apr 02, 2018 11:12
--- NOTE | 2018-04-02 16:01 | Antimicrobial Stewardship ---
Antimicrobial Stewardship Empiricly appropriate: Yes Comment Patient on Zosyn following ileostomy takedown surgery. Reviewed for Drug Interaction: Yes Monitored for Toxicities: Yes IV to PO Opportunity: No (Awaiting return of bowel function.) Determine cumulative duration: Individualized. LAURIE GUTHRIE Apr 02, 2018 16:01
[2018-04-02] MEDS: MIRTAZAPINE 30 MG TAB 30 MG TAB PO SCH (20:20)
[2018-04-03] VITALS (7 sets, daily range): BP systolic 107–124; BP diastolic 62–79
[2018-04-03] MEDS: PIPERACILLIN/TAZO*3.375GM VIAL 3.375 GM in NS(*) 0.9% 100 ML ADDVANT BAG 100 ML IVPB SCH ×4 (01:32→20:30)
[2018-04-03] MEDS: ACETAMINOPHEN(*)1000 MG/100 ML 100 ML IVPB SCH ×4 (05:19→23:18)
[2018-04-03] MEDS: HYDROmorphone PCA 6 MG/30 ML IV PRN ×3 (05:53→17:25)
[2018-04-03 06:30] LABS: PLATELET COUNT, AUTOMATED 177 K/uL (150-450)
[2018-04-03] MEDS: PANTOPRAZOLE SOD 40 MG IV VIAL IVP SCH (08:17)
[2018-04-03] MEDS: NS(*) 0.9% 1000 ML BAG 1,000 ML IV PRN ×2 (10:10→18:28)
--- NOTE | 2018-04-03 11:09 | General Surgery Progress Note ---
Subjective Progress Notes Subjective Complaining of more abdominal pain today. Still having liquid/bloody stools, more like Pranay-aid. No N/V. No bloating. Physical Exam Vital Signs Date Time Temp Pulse Resp B/P (MAP) Pulse Ox O2 Delivery O2 Flow Rate FiO2 04/03/18 09:43 16 91 04/03/18 08:23 Nasal Cannula 1.0 04/03/18 06:50 98.7 103 120/69 (86) Intake and Output 04/03/18 06:59 Intake Total 2619 ml Balance 2619 ml Intake Oral 300 ml IV Total 2319 ml # Voids 1 # Bowel Movements 2 General Appearance: Alert, Awake, No Acute Distress, Afebrile GI: Other (Soft, appropriate postop TTP, ileostomy wound is clean and dry.) Extremities: Warm, Perfused Result Diagram: 04/03/18 0545 04/03/18 0545 Assessment and Plan Problems: (1) Status post reversal of ileostomy Status: Acute Assessment & Plan: 04/02/18: POD#1 s/p ileostomy takedown. Doing well from surgical standpoint. He is passing some blood per rectum and his H/H is down a little this morning. Will stop toradol and lovenox and follow this. Will let him have sips/chips today. Will ask for psych eval. Will start remeron at bedtime. Benadryl for itching. Awaiting return of bowel function. Ambulation, IS, pulmonary hygiene, PPI, etc. 04/03/18: POD#2. Doing reasonably well but having BRBPR and H/H is down this morning. It seems, from his description, that his BMs are more liquid stool and getting to be less blood although still bright red. Not tachycardic or other obvious signs of symptomatic anemia. Will follow this. Will give a dose of ddAVP today since he had been on toradol. Hold off on lovenox for now. Will try clear diet. Mental health eval not completed yesterday, not sure why. I'm told that they will be by today to evaluate him. Continue ambulation, IS, pulmonary hygiene, PPI, etc. (2) Anxiety Status: Chronic (3) INSOMNIA, UNSPECIFIED Status: Chronic Condition Stable. Time Spent: < 30 min Exam Sepsis Risk: No Definite Risk ROE CERVANTES MD Apr 03, 2018 11:09
[2018-04-03 11:30] LABS: PLATELET COUNT, AUTOMATED 206 K/uL (150-450)
[2018-04-03] MEDS ORDERED: NS 0.9% IVPB ONE (11:30)
[2018-04-03] MEDS ORDERED: DESMOPRESSIN ACET IVPB ONE (11:30)
[2018-04-03 11:40] LABS: INR 1.5
[2018-04-03] MEDS ORDERED: NS(*) 0.9% 250 ML BAG 250 ML ONE (11:53)
[2018-04-03] MEDS: diphenhydrAMINE 25 MG CAP PO PRN ×2 (13:30→19:34)
[2018-04-03] MEDS ORDERED: ALPRAZolam 0.25 MG TAB PO ONE (15:40)
[2018-04-03] MEDS: MIRTAZAPINE 30 MG TAB 30 MG TAB PO SCH (20:30)
[2018-04-04 02:18] VITALS: BP 113/71
[2018-04-04] MEDS: PIPERACILLIN/TAZO*3.375GM VIAL 3.375 GM in NS(*) 0.9% 100 ML ADDVANT BAG 100 ML IVPB SCH ×2 (02:18→08:41)
[2018-04-04] MEDS: HYDROmorphone PCA 6 MG/30 ML IV PRN ×2 (04:05)
[2018-04-04] MEDS: NS(*) 0.9% 1000 ML BAG 1,000 ML IV PRN (04:54)
[2018-04-04] MEDS: diphenhydrAMINE 25 MG CAP PO PRN (04:54)
[2018-04-04] MEDS: ACETAMINOPHEN(*)1000 MG/100 ML 100 ML IVPB SCH (05:31)
[2018-04-04 06:49] LABS: PLATELET COUNT, AUTOMATED 185 K/uL (150-450)
[2018-04-04 07:20] VITALS: BP 129/86
[2018-04-04] MEDS: PANTOPRAZOLE SOD 40 MG IV VIAL IVP SCH (08:37)
--- NOTE | 2018-04-04 09:34 | General Surgery Progress Note ---
Subjective Progress Notes Subjective Feeling better today, less pain. Passing flatus and small BMs per rectum. Not much blood any more. Physical Exam Vital Signs Date Time Temp Pulse Resp B/P (MAP) Pulse Ox O2 Delivery O2 Flow Rate FiO2 04/04/18 07:29 16 95 04/04/18 07:20 Nasal Cannula 2.0 04/04/18 07:20 99.5 90 129/86 (100) Intake and Output 04/04/18 06:59 Intake Total 4298 ml Balance 4298 ml Intake Oral 600 ml IV Total 3698 ml # Voids 3 General Appearance: Alert, Awake, No Acute Distress, Afebrile GI: Other (Soft, appropriate postop TTP, colostomy wound is clean with serous drainage.) Extremities: Warm, Perfused Result Diagram: 04/04/18 0545 04/04/18 0545 Assessment and Plan Problems: (1) Status post reversal of ileostomy Status: Acute Assessment & Plan: 04/02/18: POD#1 s/p ileostomy takedown. Doing well from surgical standpoint. He is passing some blood per rectum and his H/H is down a little this morning. Will stop toradol and lovenox and follow this. Will let him have sips/chips today. Will ask for psych eval. Will start remeron at bedtime. Benadryl for itching. Awaiting return of bowel function. Ambulation, IS, pulmonary hygiene, PPI, etc. 04/03/18: POD#2. Doing reasonably well but having BRBPR and H/H is down this morning. It seems, from his description, that his BMs are more liquid stool and getting to be less blood although still bright red. Not tachycardic or other obvious signs of symptomatic anemia. Will follow this. Will give a dose of ddAVP today since he had been on toradol. Hold off on lovenox for now. Will try clear diet. Mental health eval not completed yesterday, not sure why. I'm told that they will be by today to evaluate him. Continue ambulation, IS, pulmonary hygiene, PPI, etc. 04/04/18: POD#3. Doing well. No further blood per rectum. GI function returning. Will try regular diet today and will try converting to PO meds. H/H down a little more this morning, asymptomatic, not in transfusion range for his age...will follow. Hold off on NSAIDS or lovenox/other blood thinners for now. Mental health/psych eval to be done today to discuss treatment of severe anxiety. Continue ambulation, IS, pulmonary hygiene, PPI, etc. (2) Postoperative anemia due to acute blood loss Status: Acute (3) Anxiety Status: Chronic (4) INSOMNIA, UNSPECIFIED Status: Chronic Condition Stable. Time Spent: < 30 min Exam Sepsis Risk: No Definite Risk ROE CERVANTES MD Apr 04, 2018 09:34
[2018-04-04] MEDS: POTASSIUM CHL 20 MEQ TABCR PO SCH ×2 (11:01→17:38)
[2018-04-04 12:03] VITALS: BP 129/86
[2018-04-04 16:13] VITALS: BP 129/81
[2018-04-04] MEDS: HYDROmorphone HCL 2 MG/ML SDV IVP PRN ×2 (16:19→21:57)
[2018-04-04 20:01] VITALS: BP 136/91
[2018-04-04] MEDS: MIRTAZAPINE 15 MG TAB PO SCH (21:27)
[2018-04-05 05:26] VITALS: BP 125/63
[2018-04-05 05:47] LABS: PLATELET COUNT, AUTOMATED 249 K/uL (150-450)
--- NOTE | 2018-04-05 07:30 | General Surgery Progress Note ---
Subjective Progress Notes Subjective Had some abdominal cramps overnight. Also had some sweats. Slept better on current psych med regimen. Passing "lots of" flatus. Physical Exam Vital Signs Date Time Temp Pulse Resp B/P (MAP) Pulse Ox O2 Delivery O2 Flow Rate FiO2 04/05/18 05:26 98.9 94 16 125/63 (83) 96 Nasal Cannula 1.0 Intake and Output 04/05/18 07:00 Intake Total 260 ml Balance 260 ml Intake Oral 260 ml # Voids 4 # Bowel Movements 5 General Appearance: Alert, Awake, No Acute Distress, Afebrile GI: Other (Soft, appropriate postop TTP. LLQ wound looks good.) Extremities: Warm, Perfused Result Diagram: 04/05/1850904/05/18509 Assessment and Plan Problems: (1) Status post reversal of ileostomy Status: Acute Assessment & Plan: 04/02/18: POD#1 s/p ileostomy takedown. Doing well from surgical standpoint. He is passing some blood per rectum and his H/H is down a little this morning. Will stop toradol and lovenox and follow this. Will let him have sips/chips today. Will ask for psych eval. Will start remeron at bedtime. Benadryl for itching. Awaiting return of bowel function. Ambulation, IS, pulmonary hygiene, PPI, etc. 04/03/18: POD#2. Doing reasonably well but having BRBPR and H/H is down this morning. It seems, from his description, that his BMs are more liquid stool and getting to be less blood although still bright red. Not tachycardic or other obvious signs of symptomatic anemia. Will follow this. Will give a dose of ddAVP today since he had been on toradol. Hold off on lovenox for now. Will try clear diet. Mental health eval not completed yesterday, not sure why. I'm told that they will be by today to evaluate him. Continue ambulation, IS, pulmonary hygiene, PPI, etc. 04/04/18: POD#3. Doing well. No further blood per rectum. GI function returning. Will try regular diet today and will try converting to PO meds. H/H down a little more this morning, asymptomatic, not in transfusion range for his age...will follow. Hold off on NSAIDS or lovenox/other blood thinners for now. Mental health/psych eval to be done today to discuss treatment of severe anxiety. Continue ambulation, IS, pulmonary hygiene, PPI, etc. 04/05/18: POD#4. Doing well but no BM yet, only small amount of mucus and had some abdominal cramps. Will continue regular diet today and await BM. H/H slightly down but no more blood per rectum. Will follow H/H. K is low, replace and recheck in the morning. Hold off NSAIDS and blood thinners/lovenox until H/H stable. Mental Health/psych eval completed yesterday and medication regimen started. Continue ambulation, IS, pulmonary hygiene, PPI, etc. (2) Postoperative anemia due to acute blood loss Status: Acute (3) Anxiety Status: Chronic (4) INSOMNIA, UNSPECIFIED Status: Chronic Condition Stable. Time Spent: < 30 min Exam Sepsis Risk: No Definite Risk ROE CERVANTES MD Apr 05, 2018 07:30
[2018-04-05 09:13] VITALS: BP 120/69
[2018-04-05] MEDS: PANTOPRAZOLE SOD 40 MG TABEC PO SCH (09:17)
[2018-04-05] MEDS: POTASSIUM CHL 20 MEQ TABCR PO SCH ×2 (09:17→17:31)
--- NOTE | 2018-04-05 10:39 | Psychiatric Consult ---
History of Present Illness Requesting Physician Dr. Santillan Reason for Consult: Psychiatric Illness Reason for Consult Dillon Kramer is a 42-year-old single male under Dr. Jain care. Mr. Kramer is now two days post-op following ileostomy reversal. He asked me to see this patient regarding his history of anxiety. History of Present Illness Current Psychiatric Medications The patient is currently taking Remeron 30 mgs and Alprazolam 0.25 mgs prn. Chief Complaint Agoraphobia History of Present Illness I interviewed Mr. Kramer in his room on the afternoon of April 04. He is gomez ppy to have the opportunity to talk to a psychiatrist and said that he had discussed this with Dr. Estrella and requested a consultation. Mr. Kramer complains of disabling anxiety. He is almost unable to leave his house because of it and has panic attacks and my anxiety has been dee-high for about six months. These occur both spontaneously but primarily in response to dealing with things that are stressful. In addition, he has a history of generalized anxiety beginning in childhood. He recalls that in high school, even though he was a straight-A student and never in any trouble, he had to sneak sips of vodka in the morning in order to help get to school. No one ever caught him or knew about it. He feels nervous, worries all the time, cant relax and has difficulty getting to sleep at night. Mr. Kramer also suffers from depression. This has been more severe in the last several months as well. He admits to feeling sad all the time, not being able to enjoy things or to get pleasure out of life, feeling hopeless, tired, and not being able to get to sleep. Once asleep, he wakes up throughout the night and does not feel rested. He denies any thoughts about suicide and believes that this is just not in his nature to do. Mr. Kramer was taking Effexor XR 150 mgs and Remeron 15 mgs up until recently when he ran out of the Effexor and could not get it refilled. He thinks that this has made him worse even thought it was not really controlling his anxiety and panic attacks. Past Psychiatric History Mr. Kramer has been seeing psychiatrists for many years. His last psychiatrist was in [place] and he was under his care until two years ago when Mr. Kramer lo st his job and had to move to [place]. He has never been hospitalized or attempted suicide or self-harm. Psychiatric Medication History Mr. Kramer has been on many different medications over the years. He recalls trials of several SSRIs including Celexa, Zoloft and possibly Prozac. He canno t recall what doses he took. He has also been tried on Cymbalta. Benzodiazepines have been prescribed for him occasionally (he recalls taking Xanax, lorazepam, and Klonopin), but he has never taken them habitually. They did help the anxiety some when he took them. The one combination of medications that seemed to work for him was Adderall in combination with Effexor XR prescribed by a psychiatrist he was seeing in [place]. He recognizes that this is not accepted treatment for panic and anxiety but thinks that it helped because it helped him focus and slow his thoughts down. He describes himself as having some AD/HD traits including always having to be doing several things simultaneously and have a very busy mind. He denies every abusing stimulant medications or taking them recreationally. Review of Symptoms Significant for depression, anxiety and panic as mentioned above. The patient denies any symptoms of shahrzad in the past. He denies any severe emotional traumas or history of PTSD. He has never had psychotic symptoms or any seizures or head injuries. He does admit to some obsessive-compulsive symptoms including being highly organized and counting things. This has not interfered with his functioning, however. Substance Use Mr. Kramer admits that, living in [place], he did use some cannabis and found it helpful to relax. However, he has not used any since leaving that state two years ago. He used to drink alcohol but stopped four years ago since he thought it could become a problem for him. He denies any other substance use and has never had any social or legal problems relating to substances. Social History Mr. Kramer was born and raised in [place]. He graduated from high school and completed two masters degrees at [employer] and an [employer]. However, the company he was working for closed two years ago and he lost him home in [place] and was not able to find another job. As a result, he moved to [place] and has been living in his mothers home with her since them. He has never been and has no children. He denies any difficulties with sexuality and considers himself heterosexual. However, he has not had any intimate relationships in some time. He has not been able to get a job since living in [place] and has been hampered by his agoraphobia as well as by his recent medical problems. Family Psychiatric History Mr. Kramer admits that his mother takes Effexor but did not admit to any other family psychiatric history. Past Medical History Mr. Kramer has severe diverticulitis which forced him to have a bowel resection and colostomy, then later an ileostomy. He is currently recovering from a small bowel reanastomosis and reversal of the ileostomy. Patient Refused Consult: No [facility] - Subjective Progress Notes Suicidal Ideation: None Homicidal Ideation: None BHS - Objective Mental Status Exam General Appearance: Good Eye Contact, Cooperative, Polite, Good Interaction Speech: Clear, Spontaneous, Normal Rate, Normal Rhythm, Normal Volume, Normal Tone Mood: Dysthmic/Depressed Affect: Full and Appropriate, Anxious Thought Process: Organized, Logical, Goal Directed Thought Content: No Suicidal Ideation, No Homicidal Ideation, No Delusions, No Auditory Halllucinations Sensorium: Clear Cognition: Alert & Oriented-Person, Alert & Oriented-Place, Alert & Oriented- Time, [id number]-[id number]-Jsvpbhmda Memory: Immediate, Recent, Remote Intelligence: Above Average Insight Judgment: Good Result Diagram: 04/05/18 0510 04/05/18 0510 [facility] Assessment and Plan Guhe-[id number] Encounter Date: Apr 04, 2018 Frwz-qs-Lrki Encounter Time: 16:00 Follow Up Testing Recommended: No Problems: (1) Generalized anxiety disorder (2) Major depression, chronic (3) Panic disorder with agoraphobia and severe panic attacks Condition Mr. Kramer is a previously high-functioning gentleman who is severely disabled by panic, anxiety and depression. Treatment Recommendation: Outpatient Treatment Recommendation Details After discussion of options, we agreed that although it is clearly an "off- label" intervention, it would be reasonable to try resuming Effexor XR in addition to low-dose mirtazepine to help with sleep and adding Adderall which helped Dillon before. The hospital does not have Adderall on the formulary and I do not want to use methyphenidate which behaves differently. I have ordered Vyvanse instead at 30 mgs. Since this is quite costly, I suggest that when Mr. Kramer is released, that he be given an outpatient prescription for Adderall XR 30 mgs each morning with follow-up by a local psychiatric provider or psychiatrist. I also suggested that Mr. Kramer contact his previous psychiatr ist and obtain records documenting his prior treatments. Finally, a referral to Voc Rehab might be helpful. Mr. Kramer wants and needs to return to work in order to succeed. MJ PURVIS DO Apr 05, 2018 10:39
[2018-04-05] MEDS: VENLAFAXINE XR 75 MG CAPCR PO SCH (10:46)
[2018-04-05] MEDS: LISDEXAMFETAMINE 30 MG PO SCH (10:46)
[2018-04-05] MEDS: HYDROmorphone HCL 2 MG/ML SDV IVP PRN ×2 (11:21→21:45)
[2018-04-05 12:49] VITALS: BP 144/96
[2018-04-05 13:06] VITALS: BP 127/101
--- NOTE | 2018-04-05 14:30 | Medical Nutrition Therapy ---
Nutrition Anthropometrics Height (Inches): 74.00 Height (Calculated Centimeters: 187.531533 Weight (Pounds): 236 Weight (Calculated Kilograms): 107.048 Saulo Nutrition Score: Probably Inadequate Saulo Nutrition Risk Score: 20 Dietary Referral Nutrition Risk Factors: Recent Nutrition Impact Nutrition Risk Comment: Nutritional Diagnosis Nutritional Risk Acuity 2: GI Malabsorption Past Medical History: Hx of colectomy and appendectomy Nutritional Acuity: 2-Moderate Nutrition Diagnosis: Altered GI Function Nutrition Etiology: Physiological Causes Nutrition Problem/Etiology/Sym: AEB ileostomy takedown Adjusted Energy Requirement Re: 2500 (H-B adj for obesity) Protein Requirement: 96 (.9gm/kg) Fluid Requirement: 2500 (1ml/kcal) Diet Type: Diet as Tolerated NISA/REG Nutrition Intervention: Cont diet as ordered, Encourage intake Nutrition Monitoring & Eval Nutrition Goals: Eat 75-100% Meal Nutrition Follow-Up: Fair Intake RD Patient Assessment Time: [address] Assessment Type: RD Re-Assessment Patient Nutrition Acuity: 2-Moderate Follow Up Date: Apr 09, 2018 Nutritional Comment: 04/02 Pt admitted for ileostomy takedown. Pt currently NPo with no flatus reported. Alb 4.6. Wt stable from last admit. BMI is in class 1 obsity range. Will cont to monitor. BK 04/05 Diet advanced to reg. Pt eating 25-100% of small to regular portions. pt has hypoactive bowels. Alnb 4.6. Will cont to monitor and encourage intake. RODRICK WAGNER Apr 05, 2018 14:30
[2018-04-05] MEDS: ONDANSETRON 4 MG/2 ML VIAL IVP PRN (15:01)
[2018-04-05 17:27] VITALS: BP 161/101
[2018-04-05] MEDS: MIRTAZAPINE 15 MG TAB PO SCH (21:44)
[2018-04-06 02:44] VITALS: BP 133/87
[2018-04-06 06:01] LABS: PLATELET COUNT, AUTOMATED 324 K/uL (150-450)
[2018-04-06] MEDS: PANTOPRAZOLE SOD 40 MG TABEC PO SCH (08:19)
[2018-04-06] MEDS: POTASSIUM CHL 20 MEQ TABCR PO SCH ×2 (08:19→17:12)
--- NOTE | 2018-04-06 08:19 | General Surgery Progress Note ---
Subjective Progress Notes Subjective No new compaints. Having some postop pain. Passing flatus. Very little stool so far. No N/V. No bloating. Physical Exam Vital Signs Date Time Temp Pulse Resp B/P (MAP) Pulse Ox O2 Delivery O2 Flow Rate FiO2 04/06/18 02:44 98.3 66 14 133/87 (102) 98 Nasal Cannula 2.0 Intake and Output 04/06/18 07:00 Intake Total 0 ml Balance 0 ml Intake Oral 0 ml # Voids 2 # Bowel Movements 2 General Appearance: Alert, Awake, No Acute Distress, Afebrile GI: Other (Soft, mild diffuse TTP, no peritoneal signs. Stoma wound is clean with serous drainage. Brianne and ephraim drain removed this morning.) Extremities: Warm, Perfused Result Diagram: 04/06/1854104/06/18541 Assessment and Plan Problems: (1) Status post reversal of ileostomy Status: Acute Assessment & Plan: 04/02/18: POD#1 s/p ileostomy takedown. Doing well from surgical standpoint. He is passing some blood per rectum and his H/H is down a little this morning. Will stop toradol and lovenox and follow this. Will let him have sips/chips today. Will ask for psych eval. Will start remeron at b edtime. Benadryl for itching. Awaiting return of bowel function. Ambulation, IS, pulmonary hygiene, PPI, etc. 04/03/18: POD#2. Doing reasonably well but having BRBPR and H/H is down this morning. It seems, from his description, that his BMs are more liquid stool and getting to be less blood although still bright red. Not tachycardic or other obvious signs of symptomatic anemia. Will follow this. Will give a dose of ddAVP today since he had been on toradol. Hold off on lovenox for now. Will try clear diet. Mental health eval not completed yesterday, not sure why. I'm told that they will be by today to evaluate him. Continue ambulation, IS, pulmonary hygiene, PPI, etc. 04/04/18: POD#3. Doing well. No further blood per rectum. GI function returning. Will try regular diet today and will try converting to PO meds. H/H down a little more this morning, asymptomatic, not in transfusion range for his age...will follow. Hold off on NSAIDS or lovenox/other blood thinners for now. Mental health/psych eval to be done today to discuss treatment of severe anxiety. Continue ambulation, IS, pulmonary hygiene, PPI, etc. 04/05/18: POD#4. Doing well but no BM yet, only small amount of mucus and had some abdominal cramps. Will continue regular diet today and await BM. H/H slightly down but no more blood per rectum. Will follow H/H. K is low, replace and recheck in the morning. Hold off NSAIDS and blood thinners/lovenox until H/H stable. Mental Health/psych eval completed yesterday and medication regimen started. Continue ambulation, IS, pulmonary hygiene, PPI, etc. 04/06/18: POD#5. Doing well. Increasing flatus but still not much stool. Had mild fevers to 99 yesterday, afebrile overnight. Abdominal exam is fairly benign, WBC normal, no left shift. K is low so will replace again today. Continue diet and will await improved bowel function. H/H is stable and he's asymptomatic from anemia standpoint. Hold off on iron until bowel function improved. Continue meds for anxiety. Continue ambulation, IS, pulmonary hygiene, PPI, etc. (2) Postoperative anemia due to acute blood loss Status: Acute (3) Anxiety Status: Chronic (4) INSOMNIA, UNSPECIFIED Status: Chronic Condition Stable. Time Spent: < 30 min Exam Sepsis Risk: No Definite Risk ROE CERVANTES MD Apr 06, 2018 08:19
[2018-04-06 08:26] VITALS: BP 148/85
[2018-04-06] MEDS: LISDEXAMFETAMINE 30 MG PO SCH (09:32)
[2018-04-06] MEDS: VENLAFAXINE XR 75 MG CAPCR PO SCH (09:32)
[2018-04-06 12:10] VITALS: BP 134/77
[2018-04-06 15:19] VITALS: BP 164/101
[2018-04-06 20:40] VITALS: BP 143/98
[2018-04-06] MEDS: diphenhydrAMINE 25 MG CAP PO PRN (21:16)
[2018-04-06] MEDS: MIRTAZAPINE 15 MG TAB PO SCH (21:16)
[2018-04-06 23:42] VITALS: BP 149/88
[2018-04-07 05:46] LABS: PLATELET COUNT, AUTOMATED 387 K/uL (150-450)
[2018-04-07 05:50] VITALS: BP 142/88
[2018-04-07] MEDS ORDERED: ACETAMINOPHEN 325 MG TAB PO PRN (07:05)
[2018-04-07] MEDS ORDERED: IBUPROFEN 600 MG TAB PO PRN (07:05)
--- NOTE | 2018-04-07 07:06 | General Surgery Progress Note ---
Subjective Progress Notes Subjective No complaints. Improving postop pain. Not a great appetite. Still passing flatus, not much stool. Mild nausea but not increasing and no bloating. Physical Exam Vital Signs Date Time Temp Pulse Resp B/P (MAP) Pulse Ox O2 Delivery O2 Flow Rate FiO2 04/07/18 05:50 98.2 85 20 142/88 (106) 92 Room Air 04/06/18 23:42 0.5 Intake and Output 04/07/18 07:00 Intake Total 360 ml Balance 360 ml Intake Oral 360 ml # Voids 2 # Bowel Movements 1 General Appearance: Alert, Awake, No Acute Distress, Afebrile GI: Other (Soft, appropriate postop TTP, stoma wound is clean with small amount of drainage.) Extremities: Warm, Perfused Result Diagram: 04/07/1851304/07/18513 Assessment and Plan Problems: (1) Status post reversal of ileostomy Status: Acute Assessment & Plan: 04/02/18: POD#1 s/p ileostomy takedown. Doing well from surgical standpoint. He is passing some blood per rectum and his H/H is down a little this morning. Will stop toradol and lovenox and follow this. Will let him have sips/chips today. Will ask for psych eval. Will start remeron at bedtime. Benadryl for itching. Awaiting return of bowel function. Ambulation, IS, pulmonary hygiene, PPI, etc. 04/03/18: POD#2. Doing reasonably well but having BRBPR and H/H is down this morning. It seems, from his description, that his BMs are more liquid stool and getting to be less blood although still bright red. Not tachycardic or other obvious signs of symptomatic anemia. Will follow this. Will give a dose of ddAVP today since he had been on toradol. Hold off on lovenox for now. Will try clear diet. Mental health eval not completed yesterday, not sure why. I'm told that they will be by today to evaluate him. Continue ambulation, IS, pulmonary hygiene, PPI, etc. 04/04/18: POD#3. Doing well. No further blood per rectum. GI function returning. Will try regular diet today and will try converting to PO meds. H/H down a little more this morning, asymptomatic, not in transfusion range for his age...will follow. Hold off on NSAIDS or lovenox/other blood thinners for now. Mental health/psych eval to be done today to discuss treatment of severe anxiety. Continue ambulation, IS, pulmonary hygiene, PPI, etc. 04/05/18: POD#4. Doing well but no BM yet, only small amount of mucus and had some abdominal cramps. Will continue regular diet today and await BM. H/H slightly down but no more blood per rectum. Will follow H/H. K is low, replace and recheck in the morning. Hold off NSAIDS and blood thinners/lovenox until H/H stable. Mental Health/psych eval completed yesterday and medication regimen started. Continue ambulation, IS, pulmonary hygiene, PPI, etc. 04/06/18: POD#5. Doing well. Increasing flatus but still not much stool. Had mild fevers to 99 yesterday, afebrile overnight. Abdominal exam is fairly benign, WBC normal, no left shift. K is low so will replace again today. Continue diet and will await improved bowel function. H/H is stable and he's asymptomatic from anemia standpoint. Hold off on iron until bowel function improved. Continue meds for anxiety. Continue ambulation, IS, pulmonary hygiene, PPI, etc. 04/07/18: POD#6. Doing well but not great bowel function yet. Will try prune juice and activia yogurt today. Labs all look good, WBC normal without left shift, H/H up a little. K is better this morning. Hopeful for BM today and if this occurs then possible d/c to home tomorrow. Encouraged him to rely on non- narcotic pain meds. Continue ambulation, IS, pulmonary hygiene, PPI, etc. (2) Postoperative anemia due to acute blood loss Status: Acute (3) Anxiety Status: Chronic (4) INSOMNIA, UNSPECIFIED Status: Chronic Condition Stable. Time Spent: < 30 min Exam Sepsis Risk: No Definite Risk ROE CERVANTES MD Apr 07, 2018 07:06
[2018-04-07 08:31] VITALS: BP 149/95
[2018-04-07] MEDS: POTASSIUM CHL 20 MEQ TABCR PO SCH ×2 (08:35→16:55)
[2018-04-07] MEDS: VENLAFAXINE XR 75 MG CAPCR PO SCH (08:36)
[2018-04-07] MEDS: LISDEXAMFETAMINE 30 MG PO SCH (08:36)
[2018-04-07] MEDS: PANTOPRAZOLE SOD 40 MG TABEC PO SCH (08:38)
[2018-04-07 10:49] VITALS: BP 144/86
[2018-04-07 15:11] VITALS: BP 158/102
[2018-04-07] MEDS: ONDANSETRON 4 MG/2 ML VIAL IVP PRN (15:43)
[2018-04-07 19:08] VITALS: BP 144/95
[2018-04-07] MEDS: MIRTAZAPINE 15 MG TAB PO SCH (23:01)
[2018-04-07 23:02] VITALS: BP 137/76
[2018-04-08 03:25] VITALS: BP 111/64
--- NOTE | 2018-04-08 05:57 | General Surgery Progress Note ---
Subjective Progress Notes Subjective No complaints this morning. Passed a small BM overnight. Continues to pass flatus. Improving abdominal pain. No N/V or bloating. Physical Exam Vital Signs Date Time Temp Pulse Resp B/P (MAP) Pulse Ox O2 Delivery O2 Flow Rate FiO2 04/08/18 03:25 97.9 66 12 111/64 (80) 81 Nasal Cannula 0.5 Intake and Output 04/08/18 07:00 Intake Total 610 ml Balance 610 ml Intake Oral 610 ml # Voids 4 # Bowel Movements 1 General Appearance: Alert, Awake, No Acute Distress, Afebrile GI: Soft and Non-Tender (LLQ stoma wound looks good without erythema and decreasing serous drainage.) Extremities: Warm, Perfused Result Diagram: 04/07/1851304/07/18513 Assessment and Plan Problems: (1) Status post reversal of ileostomy Status: Acute Assessment & Plan: 04/02/18: POD#1 s/p ileostomy takedown. Doing well from surgical standpoint. He is passing some blood per rectum and his H/H is down a little this morning. Will stop toradol and lovenox and follow this. Will let him have sips/chips today. Will ask for psych eval. Will start remeron at bedtime. Benadryl for itching. Awaiting return of bowel function. Ambulation, IS, pulmonary hygiene, PPI, etc. 04/03/18: POD#2. Doing reasonably well but having BRBPR and H/H is down this morning. It seems, from his description, that his BMs are more liquid stool and getting to be less blood although still bright red. Not tachycardic or other obvious signs of symptomatic anemia. Will follow this. Will give a dose of ddAVP today since he had been on toradol. Hold off on lovenox for now. Will try clear diet. Mental health eval not completed yesterday, not sure why. I'm told that they will be by today to evaluate him. Continue ambulation, IS, pulmonary hygiene, PPI, etc. 04/04/18: POD#3. Doing well. No further blood per rectum. GI function returning. Will try regular diet today and will try converting to PO meds. H/H down a little more this morning, asymptomatic, not in transfusion range for his age...will follow. Hold off on NSAIDS or lovenox/other blood thinners for now. Mental health/psych eval to be done today to discuss treatment of severe anxiety. Continue ambulation, IS, pulmonary hygiene, PPI, etc. 04/05/18: POD#4. Doing well but no BM yet, only small amount of mucus and had some abdominal cramps. Will continue regular diet today and await BM. H/H slightly down but no more blood per rectum. Will follow H/H. K is low, replace and recheck in the morning. Hold off NSAIDS and blood thinners/lovenox until H/H stable. Mental Health/psych eval completed yesterday and medication regimen started. Continue ambulation, IS, pulmonary hygiene, PPI, etc. 04/06/18: POD#5. Doing well. Increasing flatus but still not much stool. Had mild fevers to 99 yesterday, afebrile overnight. Abdominal exam is fairly benign, WBC normal, no left shift. K is low so will replace again today. Continue diet and will await improved bowel function. H/H is stable and he's asymptomatic from anemia standpoint. Hold off on iron until bowel function improved. Continue meds for anxiety. Continue ambulation, IS, pulmonary hygiene, PPI, etc. 04/07/18: POD#6. Doing well but not great bowel function yet. Will try prune juice and activia yogurt today. Labs all look good, WBC normal without left shift, H/H up a little. K is better this morning. Hopeful for BM today and if this occurs then possible d/c to home tomorrow. Encouraged him to rely on non- narcotic pain meds. Continue ambulation, IS, pulmonary hygiene, PPI, etc. 04/08/18: POD#7. Doing well. Passed a little more stool. Will try prune juice and activia yogurt again today. If he continues passing stool without problems today, and hopefully increased volume then possibly home tomorrow. O/W CCM. (2) Postoperative anemia due to acute blood loss Status: Acute (3) Anxiety Status: Chronic (4) INSOMNIA, UNSPECIFIED Status: Chronic Condition Stable. Time Spent: < 30 min Exam Sepsis Risk: No Definite Risk ROE CERVANTES MD Apr 08, 2018 05:57
[2018-04-08] MEDS: VENLAFAXINE XR 75 MG CAPCR PO SCH (08:53)
[2018-04-08] MEDS: LISDEXAMFETAMINE 30 MG PO SCH (08:53)
[2018-04-08] MEDS: PANTOPRAZOLE SOD 40 MG TABEC PO SCH (08:53)
[2018-04-08] MEDS: POTASSIUM CHL 20 MEQ TABCR PO SCH ×2 (08:53→16:21)
[2018-04-08 08:55] VITALS: BP 123/76
[2018-04-08 11:07] VITALS: BP 133/78
[2018-04-08 14:58] VITALS: BP 144/93
[2018-04-08 19:19] VITALS: BP 138/92
[2018-04-08 23:04] VITALS: BP 128/72
[2018-04-08] MEDS: ONDANSETRON 4 MG/2 ML VIAL IVP PRN (23:08)
[2018-04-08] MEDS: MIRTAZAPINE 15 MG TAB PO SCH (23:09)
[2018-04-09 03:33] VITALS: BP 126/77
[2018-04-09 07:32] VITALS: BP 111/62
[2018-04-09] MEDS ORDERED: IBUP600T22 PO (08:19)
[2018-04-09] MEDS ORDERED: PER PO (08:19)
[2018-04-09] MEDS ORDERED: ADDE30XRPT PO (08:19)
[2018-04-09] MEDS ORDERED: VENL75CA4 PO (08:19)
[2018-04-09] MEDS ORDERED: MIRT-22 PO (08:19)
[2018-04-09] MEDS: LISDEXAMFETAMINE 30 MG PO SCH (08:21)
[2018-04-09] MEDS: PANTOPRAZOLE SOD 40 MG TABEC PO SCH (08:21)
[2018-04-09] MEDS: POTASSIUM CHL 20 MEQ TABCR PO SCH (08:21)
[2018-04-09] MEDS: VENLAFAXINE XR 75 MG CAPCR PO SCH (08:21)
--- NOTE | 2018-04-09 08:45 | General Surgery Progress Note ---
Subjective Progress Notes Subjective No complaints this morning. Several BMs, loose, overnight. Tolerating diet. Pain well controlled. Physical Exam Vital Signs Date Time Temp Pulse Resp B/P (MAP) Pulse Ox O2 Delivery O2 Flow Rate FiO2 04/09/18 07:35 90 Room Air 04/09/18 07:32 97.6 82 16 111/62 (78) 04/08/18 11:10 0.5 Intake and Output 04/09/18 07:00 Intake Total 240 ml Balance 240 ml Intake Oral 240 ml # Voids 2 # Bowel Movements 3 General Appearance: Alert, Awake, No Acute Distress, Afebrile GI: Other (Soft, appropriate postop TTP, stoma wound is clean with decreasing drainage.) Extremities: Warm, Perfused Result Diagram: 04/07/1851304/07/18513 Assessment and Plan Problems: (1) Status post reversal of ileostomy Status: Acute Assessment & Plan: 04/02/18: POD#1 s/p ileostomy takedown. Doing well from surgical standpoint. He is passing some blood per rectum and his H/H is down a little this morning. Will stop toradol and lovenox and follow this. Will let him have sips/chips today. Will ask for psych eval. Will start remeron at bedtime. Benadryl for itching. Awaiting return of bowel function. Ambulation, IS, pulmonary hygiene, PPI, etc. 04/03/18: POD#2. Doing reasonably well but having BRBPR and H/H is down this morning. It seems, from his description, that his BMs are more liquid stool and getting to be less blood although still bright red. Not tachycardic or other obvious signs of symptomatic anemia. Will follow this. Will give a dose of ddAVP today since he had been on toradol. Hold off on lovenox for now. Will try clear diet. Mental health eval not completed yesterday, not sure why. I'm told that they will be by today to evaluate him. Continue ambulation, IS, pulmonary hygiene, PPI, etc. 04/04/18: POD#3. Doing well. No further blood per rectum. GI function returning. Will try regular diet today and will try converting to PO meds. H/H down a little more this morning, asymptomatic, not in transfusion range for his age...will follow. Hold off on NSAIDS or lovenox/other blood thinners for now. Mental health/psych eval to be done today to discuss treatment of severe anxiety. Continue ambulation, IS, pulmonary hygiene, PPI, etc. 04/05/18: POD#4. Doing well but no BM yet, only small amount of mucus and had some abdominal cramps. Will continue regular diet today and await BM. H/H slightly down but no more blood per rectum. Will follow H/H. K is low, replace and recheck in the morning. Hold off NSAIDS and blood thinners/lovenox until H/H stable. Mental Health/psych eval completed yesterday and medication regimen started. Continue ambulation, IS, pulmonary hygiene, PPI, etc. 04/06/18: POD#5. Doing well. Increasing flatus but still not much stool. Had mild fevers to 99 yesterday, afebrile overnight. Abdominal exam is fairly benign, WBC normal, no left shift. K is low so will replace again today. Continue diet and will await improved bowel function. H/H is stable and he's asymptomatic from anemia standpoint. Hold off on iron until bowel function improved. Continue meds for anxiety. Continue ambulation, IS, pulmonary hygiene, PPI, etc. 04/07/18: POD#6. Doing well but not great bowel function yet. Will try prune juice and activia yogurt today. Labs all look good, WBC normal without left shift, H/H up a little. K is better this morning. Hopeful for BM today and if this occurs then possible d/c to home tomorrow. Encouraged him to rely on non- narcotic pain meds. Continue ambulation, IS, pulmonary hygiene, PPI, etc. 04/08/18: POD#7. Doing well. Passed a little more stool. Will try prune juice and activia yogurt again today. If he continues passing stool without problems today, and hopefully increased volume then possibly home tomorrow. O/W CCM. 04/09/18: POD#8. Doing well. Improving bowel function. Tolerating diet. Will d/c to home today. Will continue current psychiatric regimen as per Dr. Burnett's recommendations. I will see him back in my office next week. (2) Postoperative anemia due to acute blood loss Status: Acute (3) Anxiety Status: Chronic (4) INSOMNIA, UNSPECIFIED Status: Chronic Condition Stable. Time Spent: < 30 min Exam Sepsis Risk: No Definite Risk ROE CERVANTES MD Apr 09, 2018 08:32
--- NOTE | 2018-04-09 08:49 | Short(Outpt) Discharge Summary ---
Discharge Summary Reason for Hosp/Final Diag: (1) Status post reversal of ileostomy Status: Acute Hospital Course & Plan: 04/02/18: POD#1 s/p ileostomy takedown. Doing well from surgical standpoint. He is passing some blood per rectum and his H/H is down a little this morning. Will stop toradol and lovenox and follow this. Will let him have sips/chips today. Will ask for psych eval. Will start remeron at bedtime. Benadryl for itching. Awaiting return of bowel function. Ambulation, IS, pulmonary hygiene, PPI, etc. 04/03/18: POD#2. Doing reasonably well but having BRBPR and H/H is down this morning. It seems, from his description, that his BMs are more liquid stool and getting to be less blood although still bright red. Not tachycardic or other obvious signs of symptomatic anemia. Will follow this. Will give a dose of ddAVP today since he had been on toradol. Hold off on lovenox for now. Will try clear diet. Mental health eval not completed yesterday, not sure why. I'm told that they will be by today to evaluate him. Continue ambulation, IS, pulmonary hygiene, PPI, etc. 04/04/18: POD#3. Doing well. No further blood per rectum. GI function returning. Will try regular diet today and will try converting to PO meds. H/H down a little more this morning, asymptomatic, not in transfusion range for his age...will follow. Hold off on NSAIDS or lovenox/other blood thinners for now. Mental health/psych eval to be done today to discuss treatment of severe anxiety. Continue ambulation, IS, pulmonary hygiene, PPI, etc. 04/05/18: POD#4. Doing well but no BM yet, only small amount of mucus and had some abdominal cramps. Will continue regular diet today and await BM. H/H slightly down but no more blood per rectum. Will follow H/H. K is low, replace and recheck in the morning. Hold off NSAIDS and blood thinners/lovenox until H/H stable. Mental Health/psych eval completed yesterday and medication regimen started. Continue ambulation, IS, pulmonary hygiene, PPI, etc. 04/06/18: POD#5. Doing well. Increasing flatus but still not much stool. Had mild fevers to 99 yesterday, afebrile overnight. Abdominal exam is fairly benign, WBC normal, no left shift. K is low so will replace again today. Continue diet and will await improved bowel function. H/H is stable and he's asymptomatic from anemia standpoint. Hold off on iron until bowel function improved. Continue meds for anxiety. Continue ambulation, IS, pulmonary hygiene, PPI, etc. 04/07/18: POD#6. Doing well but not great bowel function yet. Will try prune juice and activia yogurt today. Labs all look good, WBC normal without left shift, H/H up a little. K is better this morning. Hopeful for BM today and if this occurs then possible d/c to home tomorrow. Encouraged him to rely on non- narcotic pain meds. Continue ambulation, IS, pulmonary hygiene, PPI, etc. 04/08/18: POD#7. Doing well. Passed a little more stool. Will try prune juice and activia yogurt again today. If he continues passing stool without problems today, and hopefully increased volume then possibly home tomorrow. O/W CCM. 04/09/18: POD#8. Doing well. Improving bowel function. Tolerating diet. Will d/c to home today. Will continue current psychiatric regimen as per Dr. Burnett's recommendations. I will see him back in my office next week. (2) Postoperative anemia due to acute blood loss Status: Acute (3) Anxiety Status: Chronic (4) INSOMNIA, UNSPECIFIED Status: Chronic Departure Discharge to: Home, Self Care Discharge Instructions Home Meds Active Scripts Amphet Asp/Amphet/D-Amphet (ADDERALL XR 30 MG CAPSULE) 30 Mg Cap.er.24h, 1 CAP.SR.24H PO QAM, #30 CAP.SR.24H 0 Refills Prov:ROE CERVANTES MD 04/09/18 Venlafaxine Hcl (VENLAFAXINE HCL ER) 75 Mg Cap.er.24h, 1 CAP PO QDAY, #30 CAP 6 Refills Prov:ROE CERVANTES MD 04/09/18 Oxycodone/Acetaminophen (OXYCODONE/ACETAMINOPHEN 5MG/325 MG) 5 Mg/325 Mg Tab, 1 TAB PO Q4H PRN for PAIN, #30 TAB 0 Refills Prov:ROE CERVANTES MD 04/09/18 Ibuprofen (IBUPROFEN) 600 Mg Tablet, 1 TAB PO Q6H PRN for PAIN, #60 TAB 0 Refills Prov:ROE CERVANTES MD 04/09/18 Mirtazapine (MIRTAZAPINE) 15 Mg Tablet, 1 TAB PO QHS, #30 TAB 6 Refills Prov:ROE CERVANTES MD 04/09/18 Follow up Referrals: General Surgery - 04/16/18 @ Surgery, General with ROE CERVANTES MD You have a follow up appointment scheduled with Dr. Cervantes on 04/16/18, at 2:30pm. Diet: Regular Activity: No Heavy Lifting Special Instructions: You may shower as desired but don't immerse the stoma wound until it is completely healed and covered with skin. Remove the dressing before showering and replace with a new dressing after showering and change the dressing daily. Avoid any activities that involve straining or lifting more than 10 pounds for 6 weeks after surgery. I recommend that you follow up with either Viridiana De La Vega NP who can serve as your primary care provider and also help coordinate care of your mental health or Holley Lima NP who Dr. Rojas recommended as a good mental health provider who can continue your medication regimen. ROE CERVANTES MD Apr 09, 2018 08:49
--- NOTE | 2018-04-09 15:01 | Medical Nutrition Therapy ---
Nutrition Anthropometrics Height (Inches): 74.00 Height (Calculated Centimeters: 187.970149 Weight (Pounds): 236 Weight (Calculated Kilograms): 107.048 Saulo Nutrition Score: Adequate Saulo Nutrition Risk Score: 22 Dietary Referral Nutrition Risk Factors: Recent Nutrition Impact Nutrition Risk Comment: Physical Findings Physical Appearance: Obese BMI 30-39 Skin Appearance Skin Appearance: Edema Edema Location Modifier: Edema Location: Generalized Type of Edema: Degree of Edema: Gastrointestinal Symptoms GI Symtoms: Nausea Tube Present: Bowel Sounds: Recent Bowel Pattern: Stool Characteristics: Nutritional Diagnosis Nutritional Risk Acuity 2: GI Malabsorption Past Medical History: Hx of colectomy and appendectomy Nutritional Acuity: 2-Moderate Nutrition Diagnosis: Altered GI Function Nutrition Etiology: Physiological Causes Nutrition Problem/Etiology/Sym: AEB ileostomy takedown Adjusted Energy Requirement Re: 2500 (H-B adj for obesity) Protein Requirement: 96 (.9gm/kg) Fluid Requirement: 2500 (1ml/kcal) Diet Type: Diet as Tolerated NISA/REG Nutrition Intervention: Cont diet as ordered, Encourage intake Nutrition Monitoring & Eval RD Patient Assessment Time: [address] Assessment Type: RD Re-Assessment Patient Nutrition Acuity: 2-Moderate Follow Up Date: Apr 09, 2018 Nutritional Comment: 04/02 Pt admitted for ileostomy takedown. Pt currently NPo with no flatus reported. Alb 4.6. Wt stable from last admit. BMI is in class 1 obsity range. Will cont to monitor. BK 04/05 Diet advanced to reg. Pt eating 25-100% of small to regular portions. pt has hypoactive bowels. Alnb 4.6. Will cont to monitor and encourage intake. BK 04/09 Pt intake of 75-100% of most meals. Reporting loose BM. No new labs. Will go home today. -STEVEN ALVAREZ Apr 09, 2018 15:01
== END 2018-04-09 15:00 | disposition home or self-care (01) | DRG 330 ==
LOC: OR 00:39 → MED 18:46
PROVIDERS: ADMIT Surgery; ATTEND Surgery
PROC: 0DBB0ZZ Excision of Ileum, Open Approach (ICD-10-PCS; principal; 2018-04-01 15:02)
PROC: 0DJD8ZZ Inspection of Lower Intestinal Tract, Via Natural or Artificial Opening Endoscopic (ICD-10-PCS; 2018-04-01 15:02)
DX: Z43.2 Encounter for attention to ileostomy (principal); K92.1 Melena; D62 Acute posthemorrhagic anemia; K91.840 Postprocedural hemorrhage of a digestive system organ or structure following a digestive system procedure; F41.1 Generalized anxiety disorder; F41.0 Panic disorder [episodic paroxysmal anxiety]; T45.515A Adverse effect of anticoagulants, initial encounter; T39.8X5A Adverse effect of other nonopioid analgesics and antipyretics, not elsewhere classified, initial encounter; F32.9 Major depressive disorder, single episode, unspecified; E87.6 Hypokalemia; G47.00 Insomnia, unspecified; L29.9 Pruritus, unspecified; F40.00 Agoraphobia, unspecified; Y83.8 Other surgical procedures as the cause of abnormal reaction of the patient, or of later complication, without mention of misadventure at the time of the procedure; Y73.3 Surgical instruments, materials and gastroenterology and urology devices (including sutures) associated with adverse incidents; Y92.230 Patient room in hospital as the place of occurrence of the external cause
CPT/HCPCS: 36415; 82040; 82247; 82310; 82374; 82435; 82565; 82947; 84075; 84132; 84155; 84295; 84450; 84460; 84520; 85025; 85610; 85730; 86850; 86900; 86901; 88307; C9113; J0131; J0295; J1100; J1170; J1885; J2001; J2250; J2405; J2543; J2597; J2704; J2795; J3010; J7030; J7050; Q0163

== ENCOUNTER → 2019-02-01 | Outpatient (CLI) | payer SELFPAY ==
[2018-01-29 09:30] VITALS: BMI 30.7
[~2019-02-01] MED LIST changes: +ADDE30XRPT PO; +AMPH30TA10 PO; +IOPAMIDOL 76% 100 ML INFUS BTL 100 ML ONE; -METR-160 PO; +METR500T15 PO
--- NOTE | 2019-02-01 10:51 | RADIOLOGY IMAGING REPORT ---
FACILITY: [facility] [place] PATIENT NAME: Dillon Kramer : 1975 MR: [id number] V: [id number] EXAM DATE: ORDERING PHYSICIAN: ROE CERVANTES TECHNOLOGIST: Location[place] [facility] [place] Patient: Dillon Kramer : 1975 Visit/Account:[id number] Date of Sevice: 02/01/2019 CT ABDOMEN PELVIS W/ CON HISTORY: Diarrhea, history of diverticulitis, status post reversal of ileostomy TECHNIQUE: Following administration of IV contrast contiguous axial images acquired through the abdom en/pelvis. Coronal and sagittal reformatting also performed.Dose Lowering Technique One of the following dose optimization techniques was utilized in the performance of this exam: Autom ated exposure control; adjustment of the mA and/or kV according to the patient's size; or use of an i terative reconstruction technique. Specific details can be referenced in the facility's radiology C T exam operational policy. CONTRAST: 75 mL [id number]-[id number] COMPARISON: October 15, 2017 FINDINGS: Visualized lung bases: Negative. Hepatobiliary: Negative. Spleen: Negative. Adrenals: Negative. Pancreas: Negative. Kidneys ureters or bladder: Negative. Genitalia: Negative. GI: An anastomosis is seen at the rectosigmoid junction. An additional anastomosis is present in th e cecum the left-sided colon appears to been resected. Several small bowel anastomoses seen in the l eft-sided abdomen. There is a fluid-filled patulous segment of small bowel in left mid to lower abdo men likely related to postsurgical atonic changes. The proximal jejunal loops appear mildly thickene d which could be related to enteritis. Vessels/spaces/nodes: Negative. Bones/soft tissues: There Is a small ventral hernia in upper abdomen in the midline containing fat. The hernia opening measures 2.3 cm there is an additional hernia in the midline just to the right of midline in the upper abdomen containing nonobstructed small bowel. The hernia opening measures 5.1 cm there is a periumbilical hernia containing fat and nonobstructed small bowel. Infiltrative change s seen in the subcutaneous fat abutting the rectus sheath in the left lower abdomen likely postsurgic al defect there are spondylotic changes of the thoracolumbar spine multiple Schmorl's nodes Additional findings: None pertinent. IMPRESSION: There appears to been resection of the left-sided the colon. There are multiple bowel anastomoses as described above. There is a fluid-filled patulous segment of small bowel in the left mid to lower abdomen which is lik maria teresa related to postsurgical atonic changes. Proximal jejunal loops appear mildly thickened which could be related to enteritis. Multiple ventral hernias as described above with no evidence of bowel obstruction Report Dictated By: Kasandra Velasco MD at 02/01/2019 10:34 AM Report E-Signed By: Kasandra Velasco MD at 02/01/2019 10:42 AM WSN:[id number]
== END ==
LOC: CT 01:11
PROVIDERS: ATTEND Surgery
DX: R19.7 Diarrhea, unspecified (principal); Z98.890 Other specified postprocedural states; Z87.19 Personal history of other diseases of the digestive system
CPT/HCPCS: 74177; Q9967